=== PATIENT | female | born 1975 | race Caucasian/White ===

== ENCOUNTER 2020-08-31 07:36 | Outpatient (CLI) | payer OTHER, SELFPAY ==
--- NOTE | ~2020-08-31 | XR_ITS ---
EXAMINATION: XR foot LT min 3V, XR foot RT min 3V DATE: 08/31/2020 08:04 INDICATION: Bilateral foot pain TECHNIQUE: 1. Dorsoplantar, two oblique and lateral views of the left foot were obtained. 2. Dorsoplantar, two oblique and lateral views of the right foot were obtained. COMPARISON: None. FINDINGS: Alignment is normal. No fracture. Mild to moderate osteoarthritis at the left first metatarsophalange al joint and mild at the right first metatarsophalangeal joint as well as multiple additional joints in the bilateral mid and forefeet. Small bilateral plantar calcaneal spurs. Soft tissues are unremark able with no ankle joint effusions. IMPRESSION: 1. Polyarticular osteoarthritis in the bilateral mid and forefeet, mild to moderate at the left first metatarsophalangeal joint and otherwise mild. No 2. Bilateral plantar calcaneal spurs. Reviewed, dictated and finalized at location B. IMPRESSION: 1. Polyarticular osteoarthritis in the bilateral mid and forefeet, mild to mode rate at the left first metatarsophalangeal joint and otherwise mild. No 2. Bilateral plantar calcaneal spurs.
== END 2020-08-31 07:37 | disposition home or self-care (01) ==
LOC: CHSLAB 07:42 → CHSIMG 07:44
PROVIDERS: PCP Internal Medicine; Visit Provider Podiatrist
DX: M79.672 Pain in left foot (principal); M79.671 Pain in right foot
CPT/HCPCS: 73630

== ENCOUNTER 2021-09-16 10:46 | Outpatient (CLI) | payer BC, SELFPAY ==
--- NOTE | ~2021-09-16 | MM_ITS ---
EXAMINATION: MM screening joaquina BI w geovany HISTORY: Screening mammogram TECHNIQUE: Craniocaudal and mediolateral oblique 3-D tomosynthesis images were obtained and synthetic 2-D images were generated. CAD analysis was submitted and interpreted. COMPARISON: 03/24/2018 bilateral screening mammogram BREAST PARENCHYMAL COMPOSITION: There are scattered areas of fibroglandular density. FINDINGS: Stable mild asymmetry. There is no evidence of suspicious mass, calcification, or test architect ural distortion to suggest malignancy in either breast. There has been no suspicious interval change. IMPRESSION: 1. No mammographic evidence of malignancy. 2. Recommend routine screening mammography in one year. BI-RADS Category 1: Negative Reviewed, dictated and finalized at location A. [employer] MA[employer]GER
== END 2021-09-16 10:47 | disposition home or self-care (01) ==
LOC: CHSIMG 10:51
PROVIDERS: PCP Internal Medicine; Visit Provider Internal Medicine
DX: Z12.31 Encounter for screening mammogram for malignant neoplasm of breast (principal)
CPT/HCPCS: 77063; 77067

== ENCOUNTER 2022-01-30 09:48 | Outpatient (CLI) | payer BC, SELFPAY ==
--- NOTE | ~2022-01-30 | XR_ITS ---
EXAMINATION: XR tibia fibula RT 2V DATE: 01/30/2022 10:23 INDICATION: Right lower leg wound. TECHNIQUE: 2 views of right tibia and fibula were obtained. COMPARISON: None. FINDINGS: Bone alignment is normal. No fracture. Right knee demonstrates moderate osteoarthritis of m edial compartment and mild osteoarthritis of patellofemoral compartment. There is no radiopaque forei gn body. IMPRESSION: 1. Moderate right knee osteoarthritis. Reviewed, dictated and finalized at location A.
[2022-01-30 10:08] LABS: Basophils Absolute Auto 0.07 K/mm3 (0.00-0.10); Basophils Percent Auto 0.9 % (0.0-1.0); Eosinophils Absolute Auto 0.17 K/mm3 (0.02-0.50); Eosinophils Percent Auto 2.1 % (1.0-6.0); Hematocrit 49.9 % (35.0-49.0); Hemoglobin 16.2 g/dL (12.0-15.0); Immature Granulocyte Absolute 0.03 K/mm3 (0.00-0.00); Immature Granulocyte Percent A 0.4 % (0.0-0.0); Lymphocytes Absolute Auto 1.94 K/mm3 (1.10-4.50); Lymphocytes Percent Auto 24.2 % (18.0-42.0); Mean Corpuscular HGB Conc 32.5 g/dL (32.0-36.0); Mean Corpuscular Hemoglobin 29.5 pg (27.0-31.0); Mean Corpuscular Volume 90.9 fL (78.0-102.0); Mean Platelet Volume 9.8 fl (9.2-11.8); Monocytes Absolute Auto 0.38 K/mm3 (0.10-0.90); Monocytes Percent Auto 4.7 % (2.0-11.0); Neutrophils Absolute Auto 5.4 K/mm3 (1.7-7.2); Neutrophils Percent Auto 67.7 % (50.0-70.0); Platelet Count Result 318 K/mm3 (150-420); Red Blood Count 5.49 M/mm3 (4.20-5.40); Red Cell Distribution Width 13.7 % (11.6-14.4)
[2022-01-30 10:45] LABS: Alanine Aminotransferase 39 U/L (14-59); Alkaline Phosphatase 115 U/L (46-116); Anion Gap 8 mmol/L (8-16); Aspartate Amino Transferase 21 U/L (15-37); Bilirubin,Total 0.2 mg/dL (0.00-1.00); Blood Urea Nitrogen 14 mg/dL (7-18); Calcium 9.4 mg/dL (8.5-10.1); Carbon Dioxide 28 mmol/L (21-32); Chloride 102 mmol/L (98-108); Estimated Glomerular Filt Rate > 60; Glucose 88 mg/dL (70-99); Osmolality Calculated 285 mOsm/kg (285-295); Potassium 4.8 mmol/L (3.5-5.1); Sodium 138 mmol/L (136-145); Total Protein 7.3 g/dL (6.4-8.2)
== END 2022-01-30 09:49 | disposition home or self-care (01) ==
LOC: CHSIMG 09:51
PROVIDERS: PCP Internal Medicine; Visit Provider Internal Medicine
DX: S81.801A Unspecified open wound, right lower leg, initial encounter (principal)
CPT/HCPCS: 36415; 73590; 80053; 85025

== ENCOUNTER 2022-06-10 04:47 | Emergency (ER) | payer BC, SELFPAY ==
[2022-06-10 05:00] VITALS: BP 155/80; PULSE 65; RESP 17; TEMP 36.5; O2SAT 97
--- NOTE | 2022-06-10 05:01 | ED.GENADULT ---
HPI - General Adult General Chief complaint: Extremity Injury, Upper Stated complaint: right wrist pain History of Present Illness HPI narrative: The patient is a 47-year-old woman with a history of fibromyalgia, degenerative joint disease and degenerative disc disease with osteoarthritis. She is already on Mobic 15 mg daily and gabapentin 300 mg by her primary care provider. She has no recent history of trauma in the last few days. She presents with sudden onset of right wrist pain on the dorsal aspect of the right wrist since 4:30 p.m. yesterday, 06/09/2022 which is spontaneous and idiopathic. She is able to move the wrist but has limited range of motion secondary to pain. Subsequently, the patient developed pain in the upper aspect of her right arm but not in the shoulder joint. No paresthesias. No swelling of the wrist or arm; her right arm wedding ring still is as tight as usual. No tingling sensations or numbness in the upper extremity. No pain elsewhere. No dyspnea. No other complaints. 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 Related Data Home Medications Medication Instructions Recorded Confirmed escitalopram oxalate 10 mg tablet 10 mg PO DAILY 06/10/22 06/10/22 gabapentin 300 mg capsule 300 mg PO DAILY 06/10/22 06/10/22 meloxicam 15 mg tablet 15 mg PO DAILY 06/10/22 06/10/22 Allergies Allergy/AdvReac Type Severity Reaction Status Date / Time Penicillins Allergy Intermediate Nausea and Verified 06/10/22 04:59 Vomiting azithromycin Allergy Nausea and Verified 06/10/22 04:59 Vomiting Review of Systems Review of Systems: All systems reviewed & are unremarkable except as noted in HPI and below Constitutional: Constitutional: Reports no additional constitutional complaints, Denies anorexia, Denies body ache(s), Denies chills, Denies excessive sweating, Denies fatigue, Denies fever(s), Denies frequent falls, Denies headache(s), Denies malaise and Denies poor appetite Eyes: Eyes: Reports no additional eye complaints, Denies blurry vision, Denies change in vision, Denies irritation, Denies itchy eyes and Denies photophobia ENT: Reports system reviewed and no additional complaints, except as documented, Reports Normal hearing present, Denies change in voice, Denies dysphagia, Denies vertigo, Denies dizziness, Denies ear discharge, Denies headache(s), Denies hearing loss, Denies hoarseness, Denies nasal congestion, Denies neck pain, Denies sinus pressure, Denies sore throat and Denies throat swelling Cardiovascular: Cardiovascular: Reports no additional cardiovascular complaints, Denies chest pain, Denies syncope, Denies rapid heart rate, Denies irregular heart rhythm, Denies leg edema, Denies dyspnea and Denies slow heart rate Respiratory: Respiratory: Reports no additional respiratory complaints, Denies cough, Denies dyspnea, Denies stridor and Denies wheezing Gastrointestinal: Gastrointestinal: Reports no additional gastrointestinal complaints, Denies abdominal pain, Denies melena, Denies hematochezia, Denies dysphagia, Denies diarrhea, Denies nausea and Denies vomiting Genitourinary: Genitourinary: Denies hematuria, Denies urinary frequency, Denies dysuria, Denies flank pain and Denies urinary urgency Musculoskeletal: Musculoskeletal: Reports no additional musculoskeletal complaints, Denies abnormal gait, Denies back pain, Denies myalgias, Reports arthralgias (right wrist), Denies joint swelling, Reports limited range of motion (right wrist), Denies muscle cramps, Denies muscle weakness, Denies neck pain and Denies numbness Integumentary/Breasts: Skin/Breast: Reports system reviewed and no additional complaints, except as docu, Denies breast pain, Denies change in pigmentation, Denies pruritus, Denies erythema and Denies wounds Neurologic: Reports system reviewed and no additional complaints, except as documented, Reports Normal hearing present, Denies Abnormal speech present, D
[2022-06-10] MEDS: HYDROcodone/acetaminophen (*CRX) 5-325 MG TABLET 1 TAB PO (05:18)
[2022-06-10] MEDS: CYCLOBENZAPRINE HCL 10 MG TABLET PO (05:19)
[2022-06-10 06:06] VITALS: BP 144/76; PULSE 60; RESP 17; TEMP 36.3; O2SAT 96
== END 2022-06-10 06:08 | disposition home or self-care (01) ==
PROVIDERS: Emergency Provider Emergency Medicine; PCP Internal Medicine
DX: M25.531 Pain in right wrist (principal); M79.621 Pain in right upper arm
CPT/HCPCS: 99283; A9270

== ENCOUNTER 2022-08-21 13:07 | Emergency (ER) | payer BC, MEDICAID, SELFPAY ==
--- NOTE | ~2022-08-21 | XR_ITS ---
EXAMINATION: XR shoulder LT min 2V DATE: 08/21/2022 14:22 INDICATION: Left shoulder pain. TECHNIQUE: 4 views of left shoulder were obtained. COMPARISON: None. FINDINGS: Bone alignment is normal. No fracture. There is mild osteoarthritis of glenohumeral joint a nd acromioclavicular joint characterized by tiny osteophytes. IMPRESSION: 1. Mild polyarticular osteoarthritis. Reviewed, dictated and finalized at location B.
[2022-08-21 13:20] VITALS: BP 135/85; PULSE 80; RESP 16; TEMP 36.6; O2SAT 98
--- NOTE | 2022-08-21 14:05 | ED.EXTPRO ---
HPI - Extremity Problem General Chief complaint: Extremity Problem,Nontraumatic Stated complaint: SHOULDER PAIN Time Seen by Provider: 08/21/22 13:11 Source: patient and RN notes reviewed Mode of arrival: ambulatory Limitations: no limitations History of Present Illness Complaint: extremity pain (left shoulder pain) Onset (ago): day(s) (6) Pain Consistency: constant Location: left and upper extremity Severity scale (1-10): 4 Quality: aching and dull Radiation: none Relieving factors: immobilization Exacerbating factors: range of motion Associated symptoms: denies other symptoms Related Data Home Medications Medication Instructions Recorded Confirmed escitalopram oxalate 10 mg tablet 10 mg PO DAILY 06/10/22 08/21/22 gabapentin 300 mg capsule 300 mg PO DAILY 06/10/22 08/21/22 meloxicam 15 mg tablet 15 mg PO DAILY 06/10/22 08/21/22 Allergies Allergy/AdvReac Type Severity Reaction Status Date / Time Penicillins Allergy Intermediate Nausea and Verified 08/21/22 13:43 Vomiting azithromycin Allergy Nausea and Verified 08/21/22 13:43 Vomiting Review of Systems Review of Systems: All systems reviewed & are unremarkable except as noted in HPI and below Constitutional: Constitutional: Reports no additional constitutional complaints Eyes: Eyes: Reports no additional eye complaints ENT: Reports system reviewed and no additional complaints, except as documented Cardiovascular: Cardiovascular: Reports no additional cardiovascular complaints Respiratory: Respiratory: Reports no additional respiratory complaints Gastrointestinal: Gastrointestinal: Reports no additional gastrointestinal complaints Genitourinary: Genitourinary: Reports no additional female genitourinary complaints Musculoskeletal: Musculoskeletal: Reports no additional musculoskeletal complaints and Reports arthralgias Integumentary/Breasts: Skin/Breast: Reports system reviewed and no additional complaints, except as docu Neurologic: Reports system reviewed and no additional complaints, except as documented Psychiatric: Psychiatric: Reports no additional psychiatric complaints Endocrine: Endocrine: Reports no additional endocrine complaints Hematologic/Lymphatic: Hematologic/Lymphatic: Reports no additional hematologic/lymphatic complaints Allergic/Immunologic: Allergic/Immunologic: Reports no additional allergic/immunologic complaints [facility] Past Medical History Medical History Left shoulder pain Social History Social History Smoking status: Current every day smoker Exam Const: General: healthy appearing, no acute distress and well nourished Nutritional Appearance: well nourished Orientation/consciousness: patient oriented x3 Limitations: no limitations HENMT: Head: normal to inspection Ears: external ears normal, TM's normal bilaterally and EAC's normal Face/Nose/Sinus: Normal external nose present, Normal nares present, normal facial exam and sinuses nontender Face and sinus: normal facial exam and sinuses nontender Mouth: Yes Normal oral and palatal mucosa present and Yes moist mucous membranes Teeth and gingiva: dentition normal Throat: posterior oropharynx normal Eyes: Conjunctivae: conjunctivae normal Pupils: Equal, round and reactive pupils present EOM: EOMs intact bilaterally Neck: Neck: normal visual inspection, no lymphadenopathy and no meningeal signs Chest: Chest palpation & inspection: normal inspection of the chest Resp: Effort & Inspection: normal respiratory effort Auscultation: clear to auscultation bilaterally Cardio: Rate: regular rate Rhythm: regular rhythm GI: GI Palp: Yes Soft to palpation and No Tenderness to palpation present (GI) Auscultation: normal bowel sounds : General: Yes bladder normal to palpation and Yes no CVA tenderness Bimanual exam- vagina & uterus: bladder norm
[2022-08-21] MEDS: IBUPROFEN 400 MG TABLET 800 MG PO (14:24)
[2022-08-21 15:29] VITALS: BP 130/75; PULSE 79; RESP 16; O2SAT 98
== END 2022-08-21 15:31 | disposition home or self-care (01) ==
PROVIDERS: Emergency Provider Emergency Medicine; PCP Internal Medicine
DX: M19.012 Primary osteoarthritis, left shoulder (principal)
CPT/HCPCS: 73030; 99283; A4565; A9270

== ENCOUNTER 2022-09-11 13:58 | Outpatient (RCR) | payer BC, MEDICAID, SELFPAY ==
--- NOTE | 2022-09-11 14:56 | PTOPEVAL1 ---
Assessment and note entered by Uli Moura Evaluation Information Assessment Status Evaluation Diagnosis left shoulder pain Onset 06/11/22 Subjective Information Pt. reports that she developed left shoulder pain several months ago. She reports that she had recent cortisone injection that helped reduce her pain. 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 She states that pain does wake her at night. She describes pain in the area of the lateral brachial region of the left shoulder. She states that her goal is to reduce her shoulder pain. Reported Pain Level Pain Score 2: Self Report Assessment PT Clinical Summary Pt. is a 47 year old female who enters the clinic with left shoulder pain. Pt. presentation is consistent with left impingement syndrome. Continued treatment is indicated in order to improve left shoulder strength, ROM, and to reduce pain to improve IADL performance. Plan of Care Interventions Electrical Stimulation,Hot Pack/Cold Pack,Manual Therapy,Patient/Caregiver Educati,Therapeutic Activities,Therapeutic Exercise,Self-Care/Home Management PT Services Indicated Yes Treatment Frequency and 3x/week x 12 visits Duration These treatments will address the objective and functional deficits as defined above. The patient will be advanced safely and appropriately in order for the patient to progress towards his/her prior level of function. Additional exercises will be introduced and as well as a comprehensive home exercise program upon discharge, if needed, ?to ensure carryover of functional gains achieved in the clinic. This treatment plan has been reviewed and agreement upon by the patient.
== END 2022-10-06 19:00 | disposition home or self-care (01) ==
LOC: CHSPT 13:58
PROVIDERS: PCP Internal Medicine; Visit Provider Internal Medicine
DX: M25.512 Pain in left shoulder (principal)
CPT/HCPCS: 97014; 97110; 97161; 97530; G0283

== ENCOUNTER 2022-10-20 08:40 | Emergency (ER) | payer BC, MEDICAID, SELFPAY ==
--- NOTE | ~2022-10-20 | US_ITS ---
Duplex Sonography of the left extremity: Indication: Left leg pain Sagittal and transverse B-mode images as well as color-flow imaging were performed on the left femora l and popliteal veins. B-mode examination was done without and with compression in the transverse pl ane. There is good visualization of the common femoral, proximal profunda femoral, superficial femor al, greater saphenous, and popliteal veins. Normal flow was seen on color-flow imaging. Normal compr essibility was demonstrated. Somewhat suboptimal visualization of the calf veins, but no calf vein th rombus is identified. The contralateral common femoral vein was evaluated for comparison, and demonstrated normal flow and compressibility. Impression: No left lower extremity DVT identified. Reviewed, dictated and finalized at location [] S REPRESENT[employer]IVE [employer] Impression: No left lower extremity DVT identified.
[2022-10-20 08:48] VITALS: BP 189/92; PULSE 69; RESP 16; TEMP 36.4
[2022-10-20 09:43] LABS: D Dimer 0.84 mg/L (0.19-0.50)
--- NOTE | 2022-10-20 10:10 | ED.EXTPRO ---
HPI - Extremity Problem General Chief complaint: Extremity Problem,Nontraumatic Stated complaint: L leg pain Time Seen by Provider: 10/20/22 08:48 Source: patient Mode of arrival: ambulatory Limitations: no limitations History of Present Illness HPI Narrative: patient is a 47-year-old white female complains left lower extremity pain for the past 3-4 months off and on pretty much every day she describes achy pain. She has a history of osteoarthritis of the knees. She denies any injury. She says her pain is a 6/10 in severity. She says it is worse with rest after work. She is taking ibuprofen and meloxicam and tramadol for pain. She is worried she might have a blood clot. She denies any shortness of breath cough chest pain or any other pains. Denies any other complaints. Related Data Home Medications Medication Instructions Recorded Confirmed escitalopram oxalate 10 mg tablet 10 mg PO DAILY 06/10/22 10/20/22 gabapentin 300 mg capsule 300 mg PO DAILY 06/10/22 10/20/22 meloxicam 15 mg tablet 15 mg PO DAILY 06/10/22 10/20/22 Allergies Allergy/AdvReac Type Severity Reaction Status Date / Time Penicillins Allergy Intermediate Nausea and Verified 10/20/22 08:52 Vomiting azithromycin Allergy Nausea and Verified 10/20/22 08:52 Vomiting Review of Systems Review of Systems: All systems reviewed & are unremarkable except as noted in HPI and below Constitutional: Constitutional: Reports no additional constitutional complaints Eyes: Eyes: Reports no additional eye complaints ENT: Reports system reviewed and no additional complaints, except as documented Cardiovascular: Cardiovascular: Reports no additional cardiovascular complaints and Denies chest pain Respiratory: Respiratory: Reports no additional respiratory complaints, Denies chest congestion, Denies cough, Denies dyspnea and Denies wheezing Gastrointestinal: Gastrointestinal: Reports no additional gastrointestinal complaints Genitourinary: Genitourinary: Reports no additional female genitourinary complaints Musculoskeletal: Musculoskeletal: Reports as per HPI Integumentary/Breasts: Skin/Breast: Reports system reviewed and no additional complaints, except as docu Neurologic: Reports system reviewed and no additional complaints, except as documented [facility] Past Medical History Medical History Left shoulder pain Social History Social History Smoking status: Current every day smoker Exam Narrative: patient is a white female she appears in no apparent distress. Eyes conjunctiva pink sclera nonicteric. Neck is supple nontender. Lungs are clear. Heart is regular rate rhythm without murmurs gallops or rubs. Back is nontender. No CVA tenderness abdomen soft nontender left lower extremity: Full range of motion in all joints. No palpable tenderness. Negative Homans sign. DP and PT pulses are +2. Left knee stable to all forces. Negative anterior and posterior drawer test. Stable to varus and valgus stresses. Course Course Emergency Course: Venous Doppler ultrasound left lower extremity was normal no DVT. Vital Signs Vital signs: Vital Signs Temperature 36.4 C L 10/20/22 08:48 Pulse Rate 69 10/20/22 08:48 Respiratory Rate 16 10/20/22 08:48 Blood Pressure 189/92 H 10/20/22 08:48 Temperature 36.6 C 10/20/22 11:30 Pulse Rate 62 10/20/22 11:30 Respiratory Rate 16 10/20/22 11:30 Blood Pressure 142/83 H 10/20/22 11:30 Pulse Oximetry 97 10/20/22 11:30 Oxygen Delivery Room Air 10/20/22 11:30 MDM - Extremity (Nontraumatic) Lab Data Labs: Lab Results 10/20/22 Range/Units 09:15 D-Dimer 0.84 H* (0.19-0.50) mg/L Discharge Plan Discharge Clinical Impression: Pain of left calf Patient Disposition: Home, Self-Care Condition: Stable Instructions: Leg Pain (ED)
[2022-10-20 11:30] VITALS: BP 142/83; PULSE 62; RESP 16; TEMP 36.6; O2SAT 97
== END 2022-10-20 11:35 | disposition home or self-care (01) ==
PROVIDERS: Emergency Provider Emergency Medicine; PCP Internal Medicine
DX: M79.662 Pain in left lower leg (principal); F17.200 Nicotine dependence, unspecified, uncomplicated
CPT/HCPCS: 36415; 85380; 93971; 99284

== ENCOUNTER 2022-11-08 13:22 | Outpatient (CLI) | payer BC, MEDICAID, SELFPAY ==
--- NOTE | ~2022-11-08 | XR_ITS ---
EXAM: XR knee LT 3V DATE: 11/08/2022 14:02 HISTORY: LEFT KNEE PAIN-POSTERIOR,NKI . COMPARISON: None available. FINDINGS: Normal mineralization. No fracture or dislocation. No lytic or blastic lesion. Mild medial joint space narrowing. Mild tricompartmental osteophytosis. No erosion or periosteal change. Soft ti ssue phlebolith. Trace joint fluid. IMPRESSION: Mild tricompartmental left knee osteoarthritis. Reviewed, dictated and finalized at location K. IN[employer] SH[employer] SPECIALIST
--- NOTE | ~2022-11-08 | XR_ITS ---
EXAM: XR hand LT min 3V DATE: 11/08/2022 14:02 HISTORY: LEFT INDEX FINGER DACTYLITIS,[place]BARRAN SIDE PEA SIZE KNOT ON 1S . COMPARISON: None available. FINDINGS: Normal mineralization. No fracture or dislocation. No lytic or blastic lesion. Moderate os teoarthritic change at the trapeziometacarpal joint, with very mild osteoarthritic changes in the int erphalangeal joints of the fingers and first MTP joint. No erosion or periosteal change. Soft tissues within normal limits. IMPRESSION: Polyarticular osteoarthritis. No soft tissue abnormality detected. Reviewed, dictated and finalized at location K. INE FEEDER
[2022-11-08 13:36] LABS: Basophils Absolute Auto 0.05 K/mm3 (0.00-0.10); Basophils Percent Auto 0.6 % (0.0-1.0); Eosinophils Absolute Auto 0.09 K/mm3 (0.02-0.50); Eosinophils Percent Auto 1.1 % (1.0-6.0); Hematocrit 45.9 % (35.0-49.0); Hemoglobin 15.5 g/dL (12.0-15.0); Immature Granulocyte Absolute 0.02 K/mm3 (0.00-0.00); Immature Granulocyte Percent A 0.2 % (0.0-0.0); Lymphocytes Absolute Auto 1.71 K/mm3 (1.10-4.50); Mean Corpuscular HGB Conc 33.8 g/dL (32.0-36.0); Mean Corpuscular Hemoglobin 30.2 pg (27.0-31.0); Mean Corpuscular Volume 89.3 fL (78.0-102.0); Mean Platelet Volume 9.4 fl (9.2-11.8); Monocytes Absolute Auto 0.45 K/mm3 (0.10-0.90); Monocytes Percent Auto 5.5 % (2.0-11.0); Neutrophils Absolute Auto 5.8 K/mm3 (1.7-7.2); Neutrophils Percent Auto 71.6 % (50.0-70.0); Platelet Count Result 329 K/mm3 (150-420); Red Blood Count 5.14 M/mm3 (4.20-5.40); Red Cell Distribution Width 14.7 % (11.6-14.4); White Blood Count 8.1 K/mm3 (4.8-10.8)
[2022-11-08 13:39] LABS: Add Urine Microscopic? YES; Appearance Urine Slightly Cloudy (Clear); Bilirubin Urine Negative (Negative); Blood Urine Negative (Negative); Color Urine Light Yellow (Yellow); Glucose Urine UA Negative (Negative); Ketones Urine Negative (Negative); Leukocyte Esterase Ur 1+ (Negative); Nitrate Urine Negative (Negative); Protein Urine Negative (Negative); Specific Grav Ur >= 1.030 (1.010-1.020); Urobilinogen Urine 0.2 mg/dL (0.2-1.0)
[2022-11-08 13:43] LABS: RBC Urine None seen /hpf (0-2)
[2022-11-08 13:44] LABS: Bacteria Urine 3+ /hpf; Squamous Epithelial Cell Urine Moderate /hpf (Few)
[2022-11-08 14:08] LABS: Alanine Aminotransferase 30 U/L (14-59); Albumin Level 3.7 g/dL (3.4-5.0); Alkaline Phosphatase 116 U/L (46-116); Anion Gap 4 mmol/L (8-16); Aspartate Amino Transferase 14 U/L (15-37); Bilirubin,Total 0.2 mg/dL (0.00-1.00); Blood Urea Nitrogen 12 mg/dL (7-18); CRP 1.2 mg/dL (0.0-0.9); Carbon Dioxide 30 mmol/L (21-32); Chloride 104 mmol/L (98-108); Estimated Glomerular Filt Rate > 60; Glucose 93 mg/dL (70-99); Osmolality Calculated 285 mOsm/kg (285-295); Potassium 4.3 mmol/L (3.5-5.1); Sodium 138 mmol/L (136-145); Thyroid Stimulating Hormone 0.96 uIU/mL (0.36-3.74); Total Protein 7.2 g/dL (6.4-8.2)
[2022-11-12 12:29] LABS: Cyclic Citrullinated Peptide 79 Units (<20)
== END 2022-11-08 13:23 | disposition home or self-care (01) ==
LOC: CHSLAB 13:24
PROVIDERS: PCP Internal Medicine; Visit Provider Internal Medicine
DX: M25.562 Pain in left knee (principal); M19.042 Primary osteoarthritis, left hand; M17.12 Unilateral primary osteoarthritis, left knee
CPT/HCPCS: 36415; 73130; 73562; 80053; 81001; 84443; 84550; 85025; 86038; 86140

== ENCOUNTER 2022-11-20 16:13 | Outpatient (RCR) | payer BC, MEDICAID, SELFPAY ==
--- NOTE | 2022-11-20 17:20 | OTOPEVAL1 ---
Assessment and note entered by Rosie Huynh OT Evaluation Information Assessment Status Evaluation Diagnosis L index finger tenosynovitis Onset 11/06/22 Subjective Information The patient reports she wears a compression glove for work that helps with the pain. 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 The patient reports no numbness or tingling. Reported Pain Level Pain Score 6: Self Report Assessment OT Clinical Summary The patient is a 47 year old female who was referred to outpatient OT due to index finger tenosynovitis. The patient previously did not experience any pain and demonstrated WNL pinch strength and digit AROM of index finger of L hand. The patient now demonstrates 50-75% AROM of index finger of L hand, 10/10 pain at it's worse and diminished pinch strength affecting the patient's ability to perform self care tasks and work tasks with decreased discomfort. The patient requires skilled OT to address current deficits and return to PLOF. Plan of Care Interventions Therapeutic Exercise,Manual Therapy,Neuro Re- education,Therapeutic Activities,Hot Pack/Cold Pack,Electrical Stimulation,Ultrasound OT Services Indicated Yes Treatment Frequency and 2x/week for 10 visits. Duration These treatments will address the objective and functional deficits as defined above. The patient will be advanced safely and appropriately in order for the patient to progress towards his/her prior level of function. Additional exercises will be introduced and as well as a comprehensive home exercise program upon discharge, if needed, ?to ensure carryover of functional gains achieved in the clinic. This treatment plan has been reviewed and agreement upon by the patient.
--- NOTE | 2022-11-22 16:57 | PTOPEVAL1 ---
Assessment and note entered by Uli Moura Evaluation Information Assessment Status Evaluation Diagnosis left knee pain Onset 08/22/22 Subjective Information Pt. reports that she has had left knee pain for several months. She reports no specific incident, just a sudden onset of pain. She reports that initially the pain was worsening, but has improved recently. She did receive a cortisone shot last week and currently she reports pain at 0/10. She reports pain levels were 10/10 before the shot. She has no pain with walking or standing activities. She reports that stairs were difficult before the shot but have been easier since the injection. She reports that she does have concern regarding weakness. She reports she would like to continue treatment to improve mm. strength. Reported Pain Level Pain Score 2,5: Self Report Assessment PT Clinical Summary Pt. is a 47 year old female who enters the clinic with left knee pain. She presents with pain with palpation, impaired flexibility, impaired gait and proximal l.e. weakness. Continued treatment is indicated in order to improve these areas to improve pt. IADL performance. Plan of Care Interventions Electrical Stimulation,Hot Pack/Cold Pack,Manual Therapy,Therapeutic Activities,Therapeutic Exercise PT Services Indicated Yes Treatment Frequency and 2x/week x 8 visits Duration These treatments will address the objective and functional deficits as defined above. The patient will be advanced safely and appropriately in order for the patient to progress towards his/her prior level of function. Additional exercises will be introduced and as well as a comprehensive home exercise program upon discharge, if needed, ?to ensure carryover of functional gains achieved in the clinic. This treatment plan has been reviewed and agreement upon by the patient.
--- NOTE | 2022-12-20 17:23 | PTOPDC ---
Assessment and note entered by JT File, PT Evaluation Information Assessment Status Discharge Diagnosis left knee pain Onset 08/22/22 Subjective Information patient reports she feels great this date. she reports no pain in the L knee. she reports she is back to all prior level activities without limitations or hesitations. Reported Pain Level Pain Score 0: Self Report Assessment PT Clinical Summary mrs. ware presents to skilled PT for her 8th skilled therapy visit. as of this date, she presents with full L knee mobility, 5/5 bilateral LE strength, and normal gait mechanics and stair ambulation. she has met all goals for skilled PT, and is ready to DC to an independent HEP. Plan of Care Treatment Frequency and DC to independent HEP Duration
--- NOTE | 2022-12-25 16:49 | OTOPDC ---
Assessment and note entered by Rosie Huynh, OT Evaluation Information Assessment Status Discharge Diagnosis RA Subjective Information The patient reports that last night and today have been very bad days. She reports 10/10 pain in L index finger where at last treatment she reported 2/10 pain in L index finger. The patient reports she has some days of intense pain and other days that are good days where the pain is not as bad. The patient stated she has been completing her exercises at home when her pain does not hurt as bad. On the date of discharge, the patient reports that both of her wrist and index fingers are hurting and she has had a hard time working today. Reported Pain Level Pain Score 0,10: Self Report Assessment OT Clinical Summary The patient demonstrates significant progress in digit AROM of L index finger leading to improvement in grasping items and decreasing risk of dropping things during daily tasks. The patient continues to demonstrate minimal to severe pain in B wrists and index fingers with pain at last visit being reported as 2/10 pain and this treatment date was reported at 10/10 pain. 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 The patient was educated on the prognosis of rheumatoid arthritis and the need for continued exercise and stretching to be performed at home. The patient is discharged this date due to plateau and fluctuation in symptoms and function at this time which affect her ability to meet her pain goal completely. The patient will see an RA specialist on 01/18/2023 to address continued pain. The patient has been educated on UE HEP to maintain function and decrease pain for conservative treatment at home. The patient is agreeable with discharge and demonstrates good understanding of exercises. Plan of Care OT Services Indicated No
== END 2022-12-25 16:59 | disposition home or self-care (01) ==
LOC: CHSOT 16:13
PROVIDERS: PCP Internal Medicine; Visit Provider Internal Medicine
DX: M25.561 Pain in right knee (principal); M79.645 Pain in left finger(s)
CPT/HCPCS: 97035; 97110; 97140; 97161; 97165; 97530

== ENCOUNTER 2022-12-28 10:24 | Outpatient (CLI) | payer BC, MEDICAID, SELFPAY ==
--- NOTE | ~2022-12-28 | XR_ITS ---
CORRECTED REPORT order change JMG 12/29/22 This report was recreated on 12/29/22. Original report was signed by Dennys Patel M.D. 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 Clinical History: Pain Findings: No acute fracture or dislocation is seen. Osseous alignment is anatomic. Joint spaces are preserved. Soft tissues are unremarkable. Impression: Unremarkable right hand. Reviewed, dictated and finalized at location M. ENGINEER MTDD Impression: Unremarkable right hand.
--- NOTE | ~2022-12-28 | XR_ITS ---
Right wrist Technique: PA, oblique, lateral, and ulnar deviation views were obtained. Clinical History: Pain Findings: No acute fracture or dislocation is seen. Osseous alignment is anatomic. Joint spaces are p reserved. Soft tissues are unremarkable. Impression: Unremarkable right wrist radiographs. Reviewed, dictated and finalized at location . 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
== END 2022-12-28 10:25 | disposition home or self-care (01) ==
LOC: CHSIMG 10:26
PROVIDERS: PCP Internal Medicine; Visit Provider Internal Medicine
DX: M25.541 Pain in joints of right hand (principal)
CPT/HCPCS: 73110; 73130

== ENCOUNTER 2023-01-12 10:35 | Outpatient (CLI) | payer BC, MEDICAID, SELFPAY ==
[2023-01-12 10:56] LABS: Basophils Absolute Auto 0.05 K/mm3 (0.00-0.10); Basophils Percent Auto 0.7 % (0.0-1.0); Eosinophils Absolute Auto 0.11 K/mm3 (0.02-0.50); Eosinophils Percent Auto 1.5 % (1.0-6.0); Hematocrit 44.5 % (35.0-49.0); Hemoglobin 14.8 g/dL (12.0-15.0); Immature Granulocyte Absolute 0.02 K/mm3 (0.00-0.00); Immature Granulocyte Percent A 0.3 % (0.0-0.0); Lymphocytes Absolute Auto 1.82 K/mm3 (1.10-4.50); Lymphocytes Percent Auto 25.2 % (18.0-42.0); Mean Corpuscular HGB Conc 33.3 g/dL (32.0-36.0); Mean Corpuscular Hemoglobin 30.6 pg (27.0-31.0); Mean Corpuscular Volume 91.9 fL (78.0-102.0); Mean Platelet Volume 9.3 fl (9.2-11.8); Monocytes Absolute Auto 0.45 K/mm3 (0.10-0.90); Monocytes Percent Auto 6.2 % (2.0-11.0); Neutrophils Absolute Auto 4.8 K/mm3 (1.7-7.2); Neutrophils Percent Auto 66.1 % (50.0-70.0); Platelet Count Result 264 K/mm3 (150-420); Red Blood Count 4.84 M/mm3 (4.20-5.40); White Blood Count 7.2 K/mm3 (4.8-10.8)
[2023-01-12 11:15] LABS: Alanine Aminotransferase 41 U/L (14-59); Albumin Level 3.5 g/dL (3.4-5.0); Alkaline Phosphatase 92 U/L (46-116); Anion Gap 6 mmol/L (8-16); Aspartate Amino Transferase 22 U/L (15-37); Bilirubin,Total 0.3 mg/dL (0.00-1.00); Blood Urea Nitrogen 13 mg/dL (7-18); CRP 0.7 mg/dL (0.0-0.9); Calcium 8.8 mg/dL (8.5-10.1); Carbon Dioxide 30 mmol/L (21-32); Chloride 107 mmol/L (98-108); Estimated Glomerular Filt Rate > 60; Glucose 81 mg/dL (70-99); Osmolality Calculated 295 mOsm/kg (285-295); Potassium 4.2 mmol/L (3.5-5.1); Sodium 143 mmol/L (136-145); Total Protein 6.6 g/dL (6.4-8.2)
[2023-01-16 12:02] LABS: Anti Cyclic Citrullinated Pept 73 Units (<20)
== END 2023-01-12 10:36 | disposition home or self-care (01) ==
LOC: CHSLAB 10:38
PROVIDERS: PCP Internal Medicine; Visit Provider Internal Medicine
DX: M06.9 Rheumatoid arthritis, unspecified (principal); M13.0 Polyarthritis, unspecified
CPT/HCPCS: 36415; 80053; 85025; 86140; 86200; 86747

== ENCOUNTER 2023-01-30 19:08 | Emergency (ER) | payer BC, MEDICAID, SELFPAY ==
--- NOTE | ~2023-01-30 | XR_ITS ---
EXAMINATION: XR hand RT min 3V INDICATION: Right hand pain TECHNIQUE: Three views of the right hand are obtained. COMPARISON: 12/28/2022 FINDINGS: No fracture, dislocation, or subluxation. The bones, soft tissues, and joint spaces are nor mal. IMPRESSION: 1. No acute osseous abnormality. Reviewed, dictated and finalized at location F.
--- NOTE | 2023-01-30 19:11 | ED.GENADULT ---
HPI - General Adult General Chief complaint: Unspecified Stated complaint: sick Time Seen by Provider: 01/30/23 19:11 History of Present Illness HPI narrative: Faiza is a 47F with a PMH of tobacco use, fibromyalgia, mood disorder, and a recent diagnosis of RA that presented to the ED with right hand pain. It has been ongoing for months but was getting much worse today. No fall, injury or trauma reported. Related Data Home Medications Medication Instructions Recorded Confirmed escitalopram oxalate 10 mg tablet 10 mg PO DAILY 06/10/22 01/30/23 gabapentin 300 mg capsule 300 mg PO DAILY 06/10/22 01/30/23 meloxicam 15 mg tablet 15 mg PO DAILY 06/10/22 01/30/23 Allergies Allergy/AdvReac Type Severity Reaction Status Date / Time Penicillins Allergy Intermediate Nausea and Verified 01/18/23 09:59 Vomiting azithromycin Allergy Nausea and Verified 01/18/23 09:59 Vomiting Review of Systems Review of Systems: All systems reviewed & are unremarkable except as noted in HPI and below PMFSH Past Medical History Medical History Current smoker Left shoulder pain Rheumatoid arthritis with rheumatoid factor of multiple sites without organ or systems involvement Surgical History Surgical History No pertinent past surgical history Family History Family History Other Depression Diabetes mellitus Heart disease Hypertension Social History Social History Smoking status: Current every day smoker Tobacco type: cigarettes Alcohol intake: never Substance use: never Substance use type: does not use Lack of Transportation: No Lack of Food: Never True Current Housing: I Have Housing Concerned About Future Housing: No Difficulty Paying Gas/Electric Bills: No Difficulty Paying for Meds: No Currently Unemployed: No Education: Decline to Answer Difficulty w/ Childcare or Family Care: No Living arrangements: with family Exam Const: General: healthy appearing and no acute distress Nutritional Appearance: well nourished Orientation/consciousness: patient oriented x3 Other: Faiza was sitting on the bed holding her right wrist HENMT: Head: normal to inspection Eyes: Conjunctivae: conjunctivae normal Pupils: Equal, round and reactive pupils present Neck: Neck: normal visual inspection Chest: Chest palpation & inspection: normal inspection of the chest Resp: Effort & Inspection: normal respiratory effort Cardio: Rate: regular rate Skin: General skin exam: normal color Rashes: no rashes Neuro: General: patient oriented x3 and moves all extremities Extrem: Other: right wrist was swollen and TTP on the dorsal side and on the thenar eminence of the right hand Psych: Mental Status: mental status grossly normal Affect: normal affect Attitude: cooperative Course Course Emergency Course: Ordered radiographs. Given toradol and Cameron for pain. EXAMINATION: XR hand RT min 3V INDICATION: Right hand pain TECHNIQUE: Three views of the right hand are obtained. COMPARISON: 12/28/2022 FINDINGS: No fracture, dislocation, or subluxation. The bones, soft tissues, and joint spaces are normal. IMPRESSION: 1. No acute osseous abnormality. Vital Signs Vital signs: Vital Signs Temperature 98.8 F 01/30/23 19:14 Pulse Rate 90 01/30/23 19:14 Respiratory Rate 20 01/30/23 19:14 Blood Pressure 169/70 H 01/30/23 19:14 Pulse Oximetry 96 01/30/23 19:14 Oxygen Delivery Room Air 01/30/23 19:14 Temperature 98.8 F 01/30/23 19:14 Pulse Rate 90 01/30/23 19:14 Respiratory Rate 20 01/30/23 19:14 Blood Pressure 169/70 H 01/30/23 19:14 Pulse Oximetry 96 01/30/23 19:14 Oxygen Delivery Room Air 01/30/23 19:14 Medical Decision M
[2023-01-30 19:14] VITALS: BP 169/70; PULSE 90; RESP 20; TEMP 37.1; O2SAT 96
[2023-01-30] MEDS: HYDROcodone/acetaminophen (*CRX) 5-325 MG TABLET 1 TAB PO (19:38)
[2023-01-30] MEDS: KETOROLAC 30 MG/ML VIAL (*BKC) IM (19:38)
[2023-01-30 19:52] VITALS: BP 140/89; PULSE 90; RESP 20; TEMP 37.2; O2SAT 96
== END 2023-01-30 19:56 | disposition home or self-care (01) ==
PROVIDERS: Emergency Provider Family Medicine; PCP Internal Medicine
DX: M06.841 Other specified rheumatoid arthritis, right hand (principal); F17.210 Nicotine dependence, cigarettes, uncomplicated; Z79.1 Long term (current) use of non-steroidal anti-inflammatories (NSAID)
CPT/HCPCS: 73130; 96372; 99283; A9270; J1885

== ENCOUNTER 2023-02-09 14:23 | Outpatient (CLI) | payer BC, MEDICAID, SELFPAY ==
--- NOTE | ~2023-02-09 | MR_ITS ---
MRI of the left hand CLINICAL HISTORY: Pain TECHNIQUE: Axial T1-weighted, T1 fat-sat, and T2 fat-sat images, coronal T1-weighted and T2 fat-sat i mages, and sagittal T1-weighted and T2 fat-sat images were performed. Following intravenous administr ation of 15 cc MultiHance gadolinium, T1-weighted fat-sat imaging was performed in the axial, coronal , and sagittal planes. FINDINGS: No fracture or evidence for osteomyelitis. There is focal intramedullary cystic change in t he scaphoid distally and at the third metacarpal head. There is minimal joint effusion at the second metacarpophalangeal joint. No other joint effusion seen. Collateral ligaments appear intact. No other bone marrow signal abnormality seen. There is enhancing tenosynovitis involving the flexor tendon sheaths of the second and fourth digits. Tendons themselves appear intact. Extensor tendons appear intact. Visualized musculature unremarkabl e. There is focal enhancing soft tissue edema at the region of the distal portion of the fifth proxim al phalanx dorsally, nonspecific. IMPRESSION: Enhancing tenosynovitis of the flexor tendons of the second and fourth digits. Focal enhancing nonspecific soft tissue edema at the region of the distal portion of the fifth proxim al phalanx, dorsally. Correlate with physical exam. Reviewed, dictated and finalized at location . IMPRESSION: Enhancing tenosynovitis of the flexor tendons of the second and fourth digits. Focal enhancing nonspecific soft tissue edema at the region of the distal porti on of the fifth proximal phalanx, dorsally. Correlate with physical exam.
--- NOTE | ~2023-02-09 | MR_ITS ---
MRI of the right hand CLINICAL HISTORY: Pain TECHNIQUE: Axial T1-weighted, T2 fat-sat, T1 fat-sat images, coronal T1-weighted and T2 fat-sat image s, and sagittal T1-weighted and STIR images were performed. Following intravenous administration of 1 5 cc MultiHance gadolinium, T1-weighted fat-sat imaging was performed in the axial, coronal, and sagi ttal planes. FINDINGS: There is suggestion of scattered mild erosive changes in the carpal bones with extensive en hancing synovitis at the wrist. Bone marrow signals in the hand itself otherwise are unremarkable. Co llateral ligaments and the hand appear intact. No joint effusion identified. Flexor and extensor tendons are intact. Questionable minimal tenosynovitis of the flexor tendons of t he thumb. Visualized musculature unremarkable. No soft tissue mass or fluid collection evident in the hand. IMPRESSION: Findings suggestive of erosive/inflammatory arthropathy at the wrist, with scattered erosive changes enhancing synovitis. Consider rheumatoid arthritis. Questionable minimal tenosynovitis of the flexor tendons of the thumb. Reviewed, dictated and finalized at location M. IMPRESSION: Findings suggestive of erosive/inflammatory arthropathy at the wrist, with scat tered erosive changes enhancing synovitis. Consider rheumatoid arthritis. Questionable minimal tenosynovitis of the flexor tendons of the thumb.
== END 2023-02-09 14:24 | disposition home or self-care (01) ==
PROVIDERS: PCP Internal Medicine; Visit Provider Internal Medicine
DX: M05.79 Rheumatoid arthritis with rheumatoid factor of multiple sites without organ or systems involvement (principal); M65.9 Synovitis and tenosynovitis, unspecified
CPT/HCPCS: 73220; A9577

== ENCOUNTER 2023-04-18 17:51 | Outpatient (CLI) | payer BC, MEDICAID, SELFPAY ==
[2023-04-19 13:29] LABS: Alanine Aminotransferase 27 U/L (14-59); Albumin Level 3.9 g/dL (3.4-5.0); Alkaline Phosphatase 123 U/L (46-116); Anion Gap 11 mmol/L (8-16); Aspartate Amino Transferase 6 U/L (15-37); Bilirubin,Total 0.3 mg/dL (0.00-1.00); Blood Urea Nitrogen 19 mg/dL (7-18); CRP 0.7 mg/dL (0.0-0.9); Carbon Dioxide 27 mmol/L (21-32); Chloride 99 mmol/L (98-108); Estimated Glomerular Filt Rate > 60; Glucose 78 mg/dL (70-99); Osmolality Calculated 285 mOsm/kg (285-295); Potassium 4.5 mmol/L (3.5-5.1); Sodium 137 mmol/L (136-145); Total Protein 6.9 g/dL (6.4-8.2)
[2023-04-19 14:09] LABS: Basophils Absolute Auto 0.07 K/mm3 (0.00-0.10); Eosinophils Absolute Auto 0.06 K/mm3 (0.02-0.50); Eosinophils Percent Auto 0.9 % (1.0-6.0); Hematocrit 44.3 % (35.0-49.0); Hemoglobin 14.7 g/dL (12.0-15.0); Immature Granulocyte Absolute 0.02 K/mm3 (0.00-0.00); Immature Granulocyte Percent A 0.3 % (0.0-0.0); Lymphocytes Absolute Auto 1.57 K/mm3 (1.10-4.50); Lymphocytes Percent Auto 22.4 % (18.0-42.0); Mean Corpuscular HGB Conc 33.2 g/dL (32.0-36.0); Mean Corpuscular Hemoglobin 29.9 pg (27.0-31.0); Mean Corpuscular Volume 90.2 fL (78.0-102.0); Mean Platelet Volume 9.2 fl (9.2-11.8); Monocytes Absolute Auto 0.37 K/mm3 (0.10-0.90); Monocytes Percent Auto 5.3 % (2.0-11.0); Neutrophils Absolute Auto 4.9 K/mm3 (1.7-7.2); Neutrophils Percent Auto 70.1 % (50.0-70.0); Platelet Count Result 306 K/mm3 (150-420); Red Blood Count 4.91 M/mm3 (4.20-5.40); Red Cell Distribution Width 14.5 % (11.6-14.4)
== END 2023-04-18 17:52 | disposition home or self-care (01) ==
LOC: CHSLAB 17:55
PROVIDERS: PCP Internal Medicine; Visit Provider Internal Medicine
DX: M06.9 Rheumatoid arthritis, unspecified (principal)
CPT/HCPCS: 36415; 80053; 85025; 86140

== ENCOUNTER 2023-11-08 10:43 | Outpatient (CLI) | payer BC, MEDICAID, SELFPAY ==
--- NOTE | ~2023-11-08 | MR_ITS ---
MRI of the left knee Clinical history: Pain Technique: Coronal proton density and proton density-weighted images, sagittal proton-density and T2 fat-sat images, and axial proton-density fat-saturated images were acquired. Findings: Anterior and posterior cruciate ligaments are intact. Medial collateral ligament and the la teral collateral ligament complex are intact. Popliteus tendon is intact. There is complex/subtle radial tearing of the posterior horn of the medial meniscus near the posterio r root. No lateral meniscal tear identified. There is extensive high-grade chondromalacia of the medial compartment with areas of amorphous subcho ndral reactive marrow edema on both sides of the medial compartment. There is mild chondral thinning of the lateral compartment. There is mild to moderate chondral thinning of the patellofemoral compart ment. Extensor mechanism is intact. Small joint effusion present. No Reyes's cyst. Impression: Complex/radial tearing at the posterior horn of the medial meniscus near the posterior root. Advanced chondromalacia of the medial compartment, as detailed above. Mild to moderate degenerative change of the lateral patellofemoral compartment, as detailed above. Reviewed, dictated and finalized at location . 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 Advanced chondromalacia of the medial compartment, as detailed above. Mild to moderate degenerative change of the lateral patellofemoral compartment, as detailed above.
== END 2023-11-08 10:44 | disposition home or self-care (01) ==
LOC: CHSIMG 10:43
PROVIDERS: PCP Internal Medicine; Visit Provider Internal Medicine
DX: M25.562 Pain in left knee (principal); S83.232A Complex tear of medial meniscus, current injury, left knee, initial encounter; M94.262 Chondromalacia, left knee
CPT/HCPCS: 73721

== ENCOUNTER 2024-09-01 11:44 | Outpatient (CLI) | payer OTHER, SELFPAY ==
--- NOTE | ~2024-09-01 | XR_ITS ---
Clinical Indication: Hypertension PA and lateral views of the chest: Comparison: None Findings: The lungs are clear, without evidence of focal consolidation or pleural effusion. Cardiome diastinal silhouette is within normal limits. Bones and soft tissues are unremarkable. Impression: Normal chest. Reviewed, dictated and finalized at location . Impression: Normal chest.
--- NOTE | 2024-09-01 11:55 | ECG_ITS ---
Test Date: 2024-09-01 12:03:12 Measurements Intervals [place] Rate: 58 P: 73 MD: 140 QRS: 82 QRSD: 103 T: 58 QT: 434 QTc: 427 Interpretive Statements SINUS BRADYCARDIA POSSIBLE LEFT ATRIAL ENLARGEMENT [-0.1mV P-WAVE IN V1/V2] INCOMPLETE RIGHT BUNDLE BRANCH BLOCK [90+ ms QRS DURATION, TERMINAL R IN V1/V2, 40+ ms S IN I/aVL/V4/V5/V6] MODERATE ST DEPRESSION [0.05+ mV ST DEPRESSION] No previous ECG available for comparison Electronically Signed On 09-02-2024 09:37:24 CDT by Eduardo Jo M.D.
== END 2024-09-01 11:45 | disposition home or self-care (01) ==
LOC: CHSIMG 11:50
PROVIDERS: PCP Internal Medicine; Visit Provider Internal Medicine
DX: I10 Essential (primary) hypertension (principal); R00.1 Bradycardia, unspecified; I45.19 Other right bundle-branch block
CPT/HCPCS: 71046; 93005

== ENCOUNTER 2024-09-18 14:47 | Outpatient (CLI) | payer OTHER, SELFPAY ==
--- NOTE | 2024-09-18 14:52 | ECHO_ITS ---
Patient Info Name: Faiza Serna Age: 49 years : 1975 Gender: Female Ht: 65 in Wt: 157 lbs BSA: 1.82 m2 HR: 65 bpm BP: 159 / 91 mmHg Heart Rhythm: Sinus Rhythm Technical Quality: Fair Exam Date: 09/18/2024 3:43 PM Exam Location: Echo Lab Patient Status: Outpatient Admit Date: 09/18/2024 Staff Ordering Physician: Edu Laguna MD Windows Laptop Technician: Toney Kyle RDCS Attending Provider: Edu Laguna MD Exam Type: CA echo doppler color flow Study Info Indications - abn ekg Complete two-dimensional, color flow and Doppler transthoracic echocardiogram is performed. Summary 1. Complete two-dimensional, color flow and Doppler transthoracic echocardiogram is performed. 2. Left ventricular chamber dimension is normal. 3. Left ventricular systolic function is normal, estimated at 55-60%. 4. The left ventricular diastolic function is normal. 5. E/e' 4 is not elevated. 6. The aortic valve is not well visualized. Cannot determine number of aortic valve leaflets. 7. There is mild aortic valve stenosis based on a peak velocity of 159 cm/s, mean gradient of 6 mmHg, and aortic valve area of 1.4 cm2. 8. No pulmonary hypertension, estimated pulmonary arterial systolic pressure is 26 mmHg. Left Ventricle E/e' 4 is not elevated. Left ventricular chamber dimension is normal. Left ventricular systolic function is normal, estimated at 55-60%. The left ventricular diastolic function is normal. Right Ventricle Right ventricular chamber dimension is normal. Right ventricular systolic function is normal. Left Atria Left atrial chamber dimension is normal. Right Atria Right atrial chamber dimension is normal. Aortic Valve There is mild aortic valve stenosis based on a peak velocity of 159 cm/s, mean gradient of 6 mmHg, and aortic valve area of 1.4 cm2. The aortic valve is not well visualized. Cannot determine number of aortic valve leaflets. There is no aortic valve regurgitation. Pulmonic Valve There is no pulmonic regurgitation. Mitral Valve There is no mitral valve stenosis. There is no mitral valve regurgitation. Tricuspid Valve There is no tricuspid valve regurgitation. No pulmonary hypertension, estimated pulmonary arterial systolic pressure is 26 mmHg. Pericardium/Pleural There is no pericardial effusion. Inferior Vena Cava Normal inferior vena cava with >50% collapse upon inspiration consistent with normal right atrial pressure, 5 mmHg. Aorta The aortic root size at the sinus of Valsalva is normal. Left Ventricular Outflow Tract Name Value Normal LVOT 2D LVOT Diameter 1.8 cm LVOT Doppler LVOT Peak Velocity 89 cm/s LVOT Peak Gradient 3 mmHg LVOT Mean Gradient 2 mmHg LVOT VTI 21 cm LVOT VTI/AV VTI Ratio 0.5 LVOT Stroke Volume 56 ml Mitral Valve Name Value Normal MV Doppler MV Decel [place] 0 cm/s2 MV PHT 0 ms MV Diastolic Function MV E Peak Velocity 14 cm/s MV A Peak Velocity 14 cm/s MV E/A 1.0 MV Decel Time 0 ms Tricuspid Valve Name Value Normal TV Regurgitation Doppler TR Peak Velocity 231 cm/s TR Peak Gradient 13 mmHg Estimated PAP/RSVP RA Pressure 5 mmHg <=5 PA Systolic Pressure 26 mmHg <36 RV Systolic Pressure 26 mmHg <36 Aortic Valve Name Value Normal AV Doppler AV Peak Velocity 159 cm/s AV Peak Gradient 10 mmHg AV Mean Gradient 6 mmHg AV VTI 40 cm AV Area (Cont Eq VTI) 1.4 cm2 >=3.0 AV Area (Cont Eq Flaco) 1.5 cm2 AV V1/V2 Ratio 0.56 AV Regurgitation 2D LVOT Area 2.6 cm2 Ventricles Name Value Normal LV Dimensions 2D/MM IVS Diastolic Thickness (2D) 1.1 cm 0.6-1.0 LVID Diastole (2D) 3.4 cm 3.8-5.2 LVIW Diastolic Thickness (2D) 0.8 cm 0.6-0.9 LVID Systole (2D) 2.5 cm 2.2-3.5 LVOT Diameter 1.8 cm LV Mass (2D Cubed) 94.07 g 67.00-162.00 LV Mass Index (2D Cubed) 52 g/m2 43-95 Relative Wall Thickness (2D) 0.46 LV Fractional Shortening/Ejection Fraction 2D/MM LV Fractional Shortening (2D) 29 % 27-45 LV EF (2D Teicholz) 57 % 54-74 LV Diastolic Volume (4C MOD) 88 ml LV EF (4C MOD) 55 % LV Diastolic Volume (2C MOD) 97 ml LV EF (2C MOD) 68 % LV Diastolic Volume (BP MOD) 94 ml 46-106 LV Diastolic Volume Index (BP MOD) 52 ml/m2 29-61 LV Systolic Volume (BP MOD) 36 ml 14-42 LV Systolic Volume Index (BP MOD) 20 ml/m2 8-24 LV EF (BP MOD) 62 % 54-74 LV Diastolic Length (4C) 8.5 cm LV Systolic Length (4C) 6.7 cm LV Stroke Volume (4C MOD) 48 ml Atria Name Value Normal LA Dimensions LA Volume (4C A-L) 27 ml LA Volume (BP A-L) 36 ml RA Dimensions RA Area (4C) 10.8 cm2 <=18.0 Report Signatures
== END 2024-09-18 14:48 | disposition home or self-care (01) ==
PROVIDERS: PCP Internal Medicine; Visit Provider Internal Medicine
DX: R94.31 Abnormal electrocardiogram [ECG] [EKG] (principal); I35.0 Nonrheumatic aortic (valve) stenosis
CPT/HCPCS: 93306

== ENCOUNTER 2024-11-20 07:55 | Outpatient (RCR) | payer OTHER, SELFPAY ==
--- NOTE | 2024-11-20 08:57 | OPREHPOC ---
Outpatient Therapy Plan of Care This is a Multidisciplinary Plan of Care that may contain components documented by all disciplines (PT, OT, and ST.) PT Problem 1 PT Problem #1 Knowledge Deficit PT Goal 1 Goal / Goal Update 1. independent and compliant with HEP Target Visit 6 PT Problem 2 PT Problem #2 Pain PT Goal 1 Goal / Goal Update 1.decrease pain at worst to 3/10 or less in the L hip Target Visit 12 PT Problem 3 PT Problem #3 Impaired Strength PT Goal 1 Goal / Goal Update 1. improve bilat hip strength to 5/5 overall 2. improve L ankle DF to 5/5 Target Visit 12 PT Problem 4 PT Problem #4 Impaired Functional Mobility PT Goal 1 Goal / Goal Update 1. patient to ambulate 15 minutes without pain in the L hip 2. patient to ambulate up and down steps with reciprocal mechanics and no pain in the L hip 3. LEFS to display 30% or less functional deficits 4. patient to feel good enough functionally to avoid surgery of the L hip Target Visit 12
--- NOTE | 2024-11-20 08:57 | PTOPEVAL1 ---
Assessment and note entered by JT File, PT Evaluation Information Assessment Status Evaluation ICD-10 Condition Codes (PT) Pain in left hip M25.552 Other ICD-10 Condition Codes ( S73.192D PT) Onset 11/17/24 Subjective Information patient reports she has been having pain in the L hip for about 1 year. 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 she reports she had some work done to the knee as this is where her pain was initially. she reports she had injections of the L knee that helped initially. she reports she is now most bothered by the L hip. she reports she has increased pain with walking. she reports the MRI showed a tear of the L acetabular labrum. she reports she had an injection, but it did not help. she reports she also has increased pain with going up and down steps. she reports she does get any NTB in the legs, but reports she can push herself through the day and then both of her legs will feel weak. she has pain from the groin to the outside of the L hip, and will sometimes radiate down the leg to the back of the knee. Reported Pain Level Pain Score 5: Self Report Assessment PT Clinical Summary mrs. ware is a 49 yo woman who presents to skilled PT services for evaluation and treatment of L hip pain and labral tear. she presents today with deficits in hip strength, pain with ambulation/stairs, and pain in the groin as well as the buttock and back of the hip. patient reports her tear is in the front of the L hip, suggesting she may have some sciatica type pain down the back of the L LE compared to labral tear symptoms. continued skilled PT is indicated to improve her objective/functional deficits and progress towards a return to her prior level functional activity performance/quality of life. Plan of Care Interventions Electrical Stimulation,Gait Training,Hot Pack/Cold Pack,Manual Therapy,Neuro Re-education,Patient/ Caregiver Education,Therapeutic Activities, Therapeutic Exercise PT Services Indicated Yes Treatment Frequency and 2x weekly for 12 visits Duration These treatments will address the objective and functional deficits as defined above. The patient will be advanced safely and appropriately in order for the patient to progress towards his/her prior level of function. Additional exercises will be introduced and as well as a comprehensive home exercise program upon discharge, if needed, ?to ensure carryover of functional gains achieved in the clinic. This treatment plan has been reviewed and agreement upon by the patient.
--- NOTE | 2024-12-18 09:57 | OPREHPOC ---
Outpatient Therapy Plan of Care This is a Multidisciplinary Plan of Care that may contain components documented by all disciplines (PT, OT, and ST.) PT Problem 1 PT Problem #1 Knowledge Deficit PT Goal 1 Goal / Goal Update 1. independent and compliant with HEP Target Visit 6 Progress Met PT Problem 2 PT Problem #2 Pain PT Goal 1 Goal / Goal Update 1.decrease pain at worst to 3/10 or less in the L hip Target Visit 12 Progress Not Met PT Problem 3 PT Problem #3 Impaired Strength PT Goal 1 Goal / Goal Update 1. improve bilat hip strength to 5/5 overall 2. improve L ankle DF to 5/5 Target Visit 12 Progress Not Met PT Problem 4 PT Problem #4 Impaired Functional Mobility PT Goal 1 Goal / Goal Update 1. patient to ambulate 15 minutes without pain in the L hip 2. patient to ambulate up and down steps with reciprocal mechanics and no pain in the L hip 3. LEFS to display 30% or less functional deficits 4. patient to feel good enough functionally to avoid surgery of the L hip Target Visit 12 Progress Not Met
--- NOTE | 2024-12-18 09:57 | PTOPPROGNS ---
Assessment and note entered by JT File, PT Evaluation Information Assessment Status Progress ICD-10 Condition Codes (PT) Pain in left hip M25.552 Other ICD-10 Condition Codes ( S73.192D PT) Onset 11/17/24 Subjective Information patient reports she is still most affected by walking. she reports she is only able to walk about a block and half before her whole L leg starts to hurt. she denies pain in the anterior L hip. she reports all of her pain in the lower back and posterior L hip. Assessment PT Clinical Summary mrs. ware arrives to therapy for her 9th skilled PT visit today. she displays improved bilateral hip abduction strength, improved L hip flexion strength, but continued pain (especially with walking). she has met HEP goal, but no other goals at this time. her symptoms continue to be more inline with a lumbar radicular or sciatica issue at this time. she would benefit from continued skilled PT to address her objective/functional deficits. she may also benefit from MRI of the lumbar spine to assess her level of damage/injury in the lower spine. Plan of Care Interventions Electrical Stimulation,Gait Training,Hot Pack/Cold Pack,Manual Therapy,Neuro Re-education,Patient/ Caregiver Education,Therapeutic Activities, Therapeutic Exercise PT Services Indicated Yes Treatment Frequency and continue per initial POC Duration These treatments will address the objective and functional deficits as defined above. The patient will be advanced safely and appropriately in order for the patient to progress towards his/her prior level of function. Additional exercises will be introduced and as well as a comprehensive home exercise program upon discharge, if needed, ?to ensure carryover of functional gains achieved in the clinic. This treatment plan has been reviewed and agreement upon by the patient.
--- NOTE | 2024-12-31 09:38 | OPREHPOC ---
Outpatient Therapy Plan of Care This is a Multidisciplinary Plan of Care that may contain components documented by all disciplines (PT, OT, and ST.) PT Problem 1 PT Problem #1 Knowledge Deficit PT Goal 1 Goal / Goal Update 1. independent and compliant with HEP Target Visit 6 Progress Met PT Problem 2 PT Problem #2 Pain PT Goal 1 Goal / Goal Update 1.decrease pain at worst to 3/10 or less in the L hip Target Visit 12 Progress Not Met PT Problem 3 PT Problem #3 Impaired Strength PT Goal 1 Goal / Goal Update 1. improve bilat hip strength to 5/5 overall 2. improve L ankle DF to 5/5 Target Visit 12 Progress Not Met PT Problem 4 PT Problem #4 Impaired Functional Mobility PT Goal 1 Goal / Goal Update 1. patient to ambulate 15 minutes without pain in the L hip -not met 2. patient to ambulate up and down steps with reciprocal mechanics and no pain in the L hip - not met 3. LEFS to display 30% or less functional deficits -not met 4. patient to feel good enough functionally to avoid surgery of the L hip -not met Target Visit 12 Progress Not Met
--- NOTE | 2024-12-31 09:38 | PTOPDC ---
Assessment and note entered by Coty Horton, PT Evaluation Information Assessment Status Discharge ICD-10 Condition Codes (PT) Pain in left hip M25.552 Other ICD-10 Condition Codes ( S73.192D PT) Onset 11/17/24 Subjective Information Faiza Serna reports she went to the doctor last week and she was ordered a CT scan from her waist to her feet. She reports the CT scan showed she may have poor circulation. She is waiting to hear from her doctor on the plan following the CT scan. She continues to have left LE pain and Dr. Laguna had a MRI ordered that did not show much. She saw Dr. Osborn on 12/30/24 and he wanted her to try another cortisone injection in her left hip. She had a cortisone injection in November 2024 in the left hip and that did not change her symptoms. She has not been able to work at [employer] due to her leg. She continues to have difficulty walking and is limited to less than 2 blocks. She notes pain starts in her ankle and moves all the way up the left leg to the hip. She also has numbness and tingling in her left more than right thigh. She also has mild low back pain in the middle. She is noting a little less pain since lumbar traction has been included in her treatments. Reported Pain Level Pain Score 3,10,10: Self Report Assessment PT Clinical Summary Faiza Serna has completed 12 skilled PT visits for left hip pain. She is reporting no overall change in her left LE pain. She does have less pain the day she has mechanical lumbar traction. She initially started PT with focus on her left hip however, further testing revealed her symptoms may be a lumbar radiculopathy. She objectively demonstrates improved hip strength since initiating PT however, she continues to have core weakness, decreased and painful lumbar flexion AROM, positive special tests for lumbar nerve root impingement, and decreased tolerance for walking. She will be discharged from skilled PT for her left hip and she has a new order to initiate PT for her lumbar spine. Plan of Care PT Services Indicated No
== END 2024-12-31 15:57 | disposition home or self-care (01) ==
LOC: CHSPT 07:55
DX: S73.192D Other sprain of left hip, subsequent encounter (principal); M25.552 Pain in left hip
CPT/HCPCS: 97012; 97014; 97110; 97140; 97161; G0283

== ENCOUNTER 2024-12-08 11:43 | Outpatient (CLI) | payer OTHER, SELFPAY ==
--- NOTE | ~2024-12-08 | XR_ITS ---
EXAM: XR lumbar spine 2-3V DATE: 12/08/2024 11:59 HISTORY: Back Pain with Lumbar Radiculopathy . COMPARISON: None available. FINDINGS: 5 nonrib-bearing lumbar-type vertebral bodies. Pedicles intact. Trace retrolistheses at L2 -3 L3-4 and L4-5. Mild presumably physiologic anterior wedging at the thoracolumbar junction, stable. Multilevel disc space narrowing, moderate at L2-3. Moderate lower lumbar facet hypertrophy and scler osis. No fracture or dislocation. IMPRESSION: Multilevel grade 1 anterolistheses. Multilevel degenerative disc disease, moderate at L2- 3. Moderate lower lumbar facet arthropathy. Reviewed, dictated and finalized at location K. NERATOR OPERATOR IMPRESSION: Multilevel grade 1 anterolistheses. Multilevel degenerative disc di sease, moderate at L2-3. Moderate lower lumbar facet arthropathy.
--- OUTSIDE RECORDS SUMMARY | 2024-12-08 12:57 | XMS_ITS | Clinical Summary ---
Author Organization [facility] [address] [facility] Address [address] [place] [address] Care Team Providers Care Flower Cheniller Name Role Phone Edu Laguna MD Primary Care Provider [phone] Allergies Active Allergy Reactions Criticality Noted Date Comments Erythromycin Stomach upset Low 07/02/2023 Penicillins Stomach upset Low 07/02/2023 Medications gabapentin (NEURONTIN) 300 mg capsule Take 1 capsule (300 mg total) by mouth 3 (three) times a day Active escitalopram (LEXAPRO) 10 mg tablet Take 1 tablet (10 mg total) by mouth daily Active famotidine (PEPCID) 40 mg tablet Take 1 tablet (40 mg total) by mouth daily Active diclofenac DR (VOLTAREN) 75 mg EC tablet Take 1 tablet (75 mg total) by mouth 2 (two) times a day 4 Active folic acid (FOLVITE) 1 mg tabletIndication s:Rheumatoid arthritis, involving unspecified site, unspecified whether rheumatoid factor present (HCC),High risk medication use Take 1 tablet (1 mg total) by mouth daily 90 tablet 3 4 08/26/20 25 Active hydroxychloroqui ne (PLAQUENIL) 200 mg tabletIndication s:Rheumatoid Arthritis Take 1 tablet (200 mg total) by mouth 2 (two) times a day 180 tablet 2 4 08/26/20 25 Active adalimumab (Humira,CF, Pen) 40 mg/0.4 mL pen injector kit Inject 0.4 mL (40 mg total) under the skin every 14 (fourteen) days 2 each 5 4 04/08/20 25 Active methotrexate 2.5 mg tabletIndication s:Rheumatoid Arthritis Take 8 tablets (20 mg total) by mouth once a week 96 tablet 4 11/18/19 25 predniSONE (DELTASONE) 5 mg tabletIndication s:autoimmune disease Take 4 tablets (20 mg) by mouth daily for 5 days, THEN 3 tablets (15 mg) daily for 5 days, THEN 2 tablets (10 mg) daily for 5 days, THEN 1 tablet (5 mg) daily for 5 days. 50 tablet 4 11/10/19 25 Active Problems Problem Noted Date Diagnosed Date Nicotine dependence 07/02/2023 Rheumatoid arthritis 07/02/2023 Encounters Date Type Department Care Team Description 10/28/2024 Telephone [facility] [address] [facility] [address] [place] [id number] Libby Lazo [facility] 10/21/2024 11:00 AM TECHNOLOGY RISK INTERN Office Visit [facility] Rheumatology [address] [place] [address] [address] [place] [address] Sherita Tripp MD Rheumatoid arthritis involving multiple sites with positive rheumatoid factor (CMS/HCC) (HCC) (Primary Dx); Need for influenza vaccination; High risk medication use; Cigarette nicotine dependence with nicotine-induced disorder 09/23/2024 11:35 AM TECHNOLOGY RISK INTERN [address] [address] Rheumatoid arthritis involving multiple sites with positive rheumatoid factor (CMS/HCC) (HCC); High risk medication use from Last 3 Months Immunizations Name Administration Dates Next Due Influenza, Quadrivalent, Hig h Dose, Preservative Free, Intrr 10/01/2023 Influenza, Trivalent, High D ose, Split, Preservative Free, Intramuscular 10/21/2024 Pneumococcal Conjugate Pcv20 10/01/2023 Medical History Medical History Date Comments Osteoarthritis Rheumatoid arthritis (HCC) Fibromyalgia, primary Family History Medical History Relation Name Comments Hypertension Father Pancreatic cancer Father Colon cancer Mother Hypertension Mother Osteoarthritis Mother Relation Name Status Comments Father Mother Social History Tobacco Use Types Packs/Day Years Used Date Smoking Tobacco: Every Day Cigarettes Smokeless Tobacco: Never Tobacco Cessation:Ready to Q uit: No; Counseling Given: No Social Connection and Isolation Panel [NHANES] A nswer Date Recorded In a typical week, how many times do you talk on the phone with family, friends, or neighbors? Once a week 01/23/2024 How often do you get together with friends or re latives? Once a week 01/23/2024 How often do you attend moravian or latter-day serv ices? Never 01/23/2024 Do you belong to any clubs o r organizations such as moravian groups, unions, fraternal or athletic groups, or school groups? No 01/23/2024 How often do you attend meet ings of the clubs or organizations you belong to? Not asked 01/23/2024 Are you , , di vorced, , never , or living with a partner? 01/23/2024 Overall Financial Resource Strain (CARDIA) Answe r Date Recorded How hard is it for you to pa y for the very basics like food, housing, medical care, and heating? Not hard at all 01/23/2024 PHQ-2 Answer Date Recorded Patient Health Questionnaire-2 Score 0 01/23/2024 [facility] Occupat ional [facility] - Occupational Stress Questionnaire Answer Date Recorded Do you feel stress - tense, restless, nervous, or anxious, or unable to sleep at night because your mind is troubled all the time - these days? Not at all 01/23/2024 Exercise Vital Sign Answer Date Recorde d On average, how many days pe r week do you engage in moderate to strenuous exercise (like a brisk walk)? 7 days 01/23/2024 On average, how many minutes do you engage in exercise at this level? 150+ min 01/23/2024 Hunger Vital Sign Answer Date Recorded Within the past 12 months, y ou worried that your food would run out before you got the money to buy more. Never true 01/23/20 24 Within the past 12 months, t he food you bought just didn't last and you didn't have money to get more. Never true 01/23/2024 PRAPARE - Transportation Answer Date Re corded In the past 12 months, has l ack of transportation kept you from medical appointments or from getting medications? No 01/04 In the past 12 months, has l ack of transportation kept you from meetings, work, or from getting things needed for daily living? No 01/23/2024 Housing Stability Vital Sign Answer Eric e Recorded In the last 12 months, was t here a time when you were not able to pay the mortgage or rent on time? No 01/23/2024 In the last 12 months, how many places have you lived? 1 01/23/2024 In the last 12 months, was t here a time when you did not have a steady place to sleep or slept in a halfway (including now)? No 01/23/2024 Comments Unknown Sex and Gender Information Value Date Recorded Sex Assigned at Not on file Legal Sex Female 3:24 PM CDT Gender Identity Not on file Sexual Orientation Not on file Obstetrics History Last Filed Vital Signs Vital Sign Reading Time Taken Comments Blood Pressure 158/89 10/21/2024 10:34 AM TECHNOLOGY RISK INTERN Pulse 59 10/21/2024 10:34 AM TECHNOLOGY RISK INTERN Temperature 36.3 ??C (97.4 ??F) 10/21/2024 10:[address] Respiratory Rate - - Oxygen Saturation 98% 10/21/2024 10:34 AM TECHNOLOGY RISK INTERN Inhaled Oxygen Concentration - - Weight 67.6 kg (149 lb) 10/21/2024 10:34 AM TECHNOLOGY RISK INTERN Height 165.1 cm (5' 5 ) 10/21/2024 10:34 AM TECHNOLOGY RISK INTERN Body Mass Index 24.79 10/21/2024 10:34 AM TECHNOLOGY RISK INTERN Plan of Treatment Health Maintenance Due Date Last Done Comments Breast Cancer Screening-Mammogram 1975 Cervical Cancer Screening 1975 Colon Cancer Screening-Colonoscopy 1975 DTaP/Tdap/Td Vaccine (1 - Tdap) 1986 Regular Well Visit/Exam 18-64 1993 Zoster Vaccine (1 of 2) 1994 Depression Screening 01/22/2025 01/23/2024, 07/02/20 23 Pneumococcal vaccine <65 Completed 10/01/2023 Hepatitis B Screening Completed 06/24/2024 Hepatitis C Screening Completed 06/24/2024, 023 Influenza Vaccine Completed 10/21/2024, 10/01/2023 Procedures Procedure Name Priority Date/Time Associated Diagnosis Comments EGFR Routine 09/23/2024 11:39 AM TECHNOLOGY RISK INTERN High risk medication use DIFFERENTIAL AUTO Routine 09/23/2024 11: 39 AM TECHNOLOGY RISK INTERN High risk medication use COMPREHENSIVE METABOLIC PANEL Routine 09/23/2024 11:39 AM TECHNOLOGY RISK INTERN High risk medication use CBC WITH AUTO DIFFERENTIAL Routine 09/23/2024 11:39 AM TECHNOLOGY RISK INTERN High risk medication use ERYTHROCYTE SEDIMENTATION RATE Routine 09/23/2024 11:39 AM TECHNOLOGY RISK INTERN Rheumatoid arthritis involving multiple sites with positive rheumatoid factor (CMS/HCC) (HCC) High risk medication use HEPATITIS C ANTIBODY Routine 06/24/2024 11:43 AM CDT Rheumatoid arthritis involving multiple sites with positive rheumatoid factor (CMS/HCC) (HCC) High risk medication use from Last 3 Months or Most Recently Relevant to Health Maintenance Results * eGFR (09/23/2024 11:39 AM TECHNOLOGY RISK INTERN) eGFR >90 >=60 mL/min/1. 73 m2 Comment: Interpretive Data Reference Interval Normal ?>/= 90 mL/min/1.73m2 Mildly decreased* ? 60 - 89 mL/min/1.73m2 Mildly to moderately decreased ?45 - 59 mL/min/1.73m2 Moderately to severely decreased ??30 - 44 mL/min/1.73m2 Severely decreased ?15 - 29 mL/min/1.73m2 Kidney Failure ?< 15 ??mL/min/1.73m2 *Relative to young adult level Estimated glomerular filtration rate is determined by the 2020 CKD-EPI equation recommended by the National Kidney Foundation (A Unifying Approach to GFR Estimation: Recommendations of the NKF-ASK Task Force on Reassessing the Inclusion of Race in Diagnosing Kidney Disease, JASN 2020). The CKD-EPI equation should not be used for patients with unstable renal function and has not been validated in children and those over 70. Current interpretive data was last reviewed 2021. Blood 09/23/2024 11:3 9 AM TECHNOLOGY RISK INTERN 09/23/2024 12:27 PM TECHNOLOGY RISK INTERN us Sherita Tripp MD LAB BLOOD ORDERABLES F inal Result [facility] ([place]) 1 [facility] Department [place] [address] * Differential, auto (09/23/2024 11:39 AM TECHNOLOGY RISK INTERN) Neutrophil abs 5.6 1.5 - 6.5 K/cumm Imm gran abs 0.0 0.0 - 0.1 K/cumm [facility] ([place]) Lymphocyte abs 1.4 0.8 - 3.3 K/cumm [facility] ([place]) Monocyte abs 0.6 0.2 - 0.8 K/cumm [facility] ([place]) Eosinophil abs 0.1 0.0 - 0.5 K/cumm [facility] ([place]) Basophil abs 0.1 0.0 - 0.1 K/cumm [facility] ([place]) Neutrophil pct 72.1 % [facility] ([place]) Comment: Interpretive Data Percent cell count reference ranges are not reported, since discordance with absolute values may lead to misinterpretation of CBC data. Current Interpretive Data was last revised on 2018. Imm gran pct 0.3 % [facility] ([place]) Comment: Interpretive Data Percent cell count reference ranges are not reported, since discordance with absolute values may lead to misinterpretation of CBC data. Current Interpretive Data was last revised on 2018. Lymphocyte pct 17.8 % [facility] ([place]) Comment: Interpretive Data Percent cell count reference ranges are not reported, since discordance with absolute values may lead to misinterpretation of CBC data. Current Interpretive Data was last revised on 2018. Monocyte pct 7.1 % [facility] ([place]) Comment: Interpretive Data Percent cell count reference ranges are not reported, since discordance with absolute values may lead to misinterpretation of CBC data. Current Interpretive Data was last revised on 2018. Eosinophil pct 1.8 % [facility] ([place]) Comment: Interpretive Data Percent cell count reference ranges are not reported, since discordance with absolute values may lead to misinterpretation of CBC data. Current Interpretive Data was last revised on 2018. Basophil pct 0.9 % [facility] ([place]) Comment: Interpretive Data Percent cell count reference ranges are not reported, since discordance with absolute values may lead to misinterpretation of CBC data. Current Interpretive Data was last revised on 2018. Blood 09/23/2024 11:3 9 AM TECHNOLOGY RISK INTERN 09/23/2024 12:27 PM TECHNOLOGY RISK INTERN us Sherita Tripp MD LAB BLOOD ORDERABLES F inal Result [facility] [address] [facility] Department [place] [address] * (ABNORMAL) CBC with auto differential (09/23/2024 11:39 AM TECHNOLOGY RISK INTERN) WBC 7.8 3.8 - 9.9 K/cumm Hgb 14.6 11.9 - 15.5 g/dL [facility] ([place]) Hct 43.0 35.6 - 45.5 % [facility] ([place]) Plt 251 150 - 400 K/cumm [facility] ([place]) MPV 10.2 9.1 - 12.3 fL [facility] ([place]) RBC 4.55 3.90 - 5.20 M/cumm [facility] ([place]) MCV 94.5 81.3 - 96.4 fL [facility] ([place]) MCH 32.1 27.1 - 33.3 pg [facility] ([place]) MCHC 34.0 32.3 - 35.7 g/dL [facility] ([place]) RDW CV 14.6 11.1 - 14.9 % [facility] ([place]) RDW SD 50.4(H) 35.7 - 48.1 fL [facility] ([place]) NRBC abs 0.00 0.00 - 0.01 K/cumm [facility] ([place]) Blood 09/23/2024 11:3 9 AM TECHNOLOGY RISK INTERN 09/23/2024 12:27 PM TECHNOLOGY RISK INTERN Sherita Tripp MD LAB BLOOD ORDERABLES F inal Result Performing Organization Address City/[facility]/ZIP Co de Phone Number [facility] ([place]) 1 [facility] [place] [address] * Erythrocyte sedimentation rate (09/23/2024 11:39 AM TECHNOLOGY RISK INTERN) Pathologist [facility] Erythrocyte sedimentation rate 14 1 - 20 mm/hr Blood 09/23/2024 11:3 9 AM TECHNOLOGY RISK INTERN 09/23/2024 12:27 PM TECHNOLOGY RISK INTERN Sherita Tripp MD LAB BLOOD ORDERABLES F inal Result Performing Organization Address [facility]/RUST de Phone Number [facility] ([place]) 1 [facility] [place] [address] * Comprehensive metabolic panel (09/23/2024 11:39 AM TECHNOLOGY RISK INTERN) Sodium 139 135 - 145 mmol/L Potassium, pl 4.0 3.3 - 4.9 mmol/L [facility] ([place]) Chloride 104 97 - 110 mmol/L [facility] ([place]) CO2 27 22 - 32 mmol/L [facility] ([place]) Anion gap 9 2 - 15 mmol/L [facility] ([place]) BUN 11 6 - 25 mg/dL [facility] ([place]) Creatinine 0.67 0.60 - 1.10 mg/dL [facility] ([place]) Glucose 95 70 - 199 mg/dL [facility] ([place]) Comment: Interpretive Data Fasting glucose >/= 126 mg/dl is diagnostic for diabetes. ?? Fasting is defined as no caloric intake for at least 8 hours. Fasting glucose between 100 mg/dl to 125 mg/dl is diagnostic of prediabetes. In a patient with classic symptoms of hyperglycemia or hyperglycemic crisis, a random glucose >/= 200 mg/dl is diagnostic for diabetes. In the absence of unequivocal hyperglycemia, results should be confirmed by repeat testing. The classification and Diagnosis of Diabetes Diabetes Care 202; 46: S19-S40. Current interpretive data was last revised 2022. Calcium 9.2 8.5 - 10.3 mg/dL [facility] ([place]) Bilirubin, total 0.3 0.1 - 1.2 mg/dL [facility] ([place]) Protein, pl 6.9 6.5 - 8.5 g/dL [facility] ([place]) Albumin 4.2 3.5 - 5.0 g/dL [facility] ([place]) Alk phos 101 40 - 130 Units/L [facility] ([place]) ALT 27 7 - 45 Units/L [facility] ([place]) AST 17 10 - 45 Units/L [facility] ([place]) Blood 09/23/2024 11:3 9 AM TECHNOLOGY RISK INTERN 09/23/2024 12:27 PM TECHNOLOGY RISK INTERN us Sherita Tripp MD LAB BLOOD ORDERABLES F inal Result [facility] ([place]) 1 [facility] Department [place] [address] * Hepatitis C antibody Blood (06/24/2024 11:43 AM CDT) Pathologist [facility] Hep C Ab Nonreactive Nonreactive Comment: Interpretive Data Nonreactive: Antibodies to HCV not detected. Does NOT exclude the possibility of recent exposure to HCV. Equivocal: Equivocal for HCV antibodies. Supplemental molecular testing will be automatically performed to determine infection status in accordance with current CDC screening recommendations. ?? Reactive: Positive for HCV antibodies. ??This may represent current or past HCV infection. Supplemental molecular testing will be automatically performed to determine ??current infection status in accordance with current CDC screening recommendations. Interpretive data was last revised on 2020. Blood 06/24/2024 11:4 3 AM CDT 06/24/2024 2:30 PM CDT Sherita Tripp MD LAB MICROBIOLOGY - GEN ERAL ORDERABLES Final Result Performing Organization Address City/State/[place] Number [place] [address] [facility] Department [place] [address] from Last 3 Months or Most Recently Relevant to Health Maintenance Insurance A[employer] [facility] AET BETTER [facility] Care Teams Flower Cheniller Relationship Specialty Start Date End Date Edu Laguna MD PCP - General Internal Medicine 02/23/23
--- OUTSIDE RECORDS SUMMARY | 2024-12-08 12:57 | XMS_ITS | Referral Summary ---
Author Organization [place] [id number] [facility] Address [address] [place] [address] Care Team Providers Care House Registry Rn Name Role Phone Edu Laguna MD Primary Care Provider [phone] Encounters Date Type Department Care Team Description 10/28/2024 Telephone [facility] [address] [facility] [address] [place] [address] Libby Lazo [facility] 10/21/2024 11:00 AM CENTER CUSTOMER SERVICE ASSOCIATE Office Visit [facility] Rheumatology [address] [place] [address] [address] [place] [address] Sherita Tripp MD Rheumatoid arthritis involving multiple sites with positive rheumatoid factor (CMS/HCC) (HCC) (Primary Dx); Need for influenza vaccination; High risk medication use; Cigarette nicotine dependence with nicotine-induced disorder 09/23/2024 11:35 AM CENTER CUSTOMER SERVICE ASSOCIATE Lab [address] [address] Rheumatoid arthritis involving multiple sites with positive rheumatoid factor (CMS/HCC) (HCC); High risk medication use from Last 3 Months Allergies Active Allergy Reactions Criticality Noted Date [...] Date Nicotine dependence 07/02/2023 Rheumatoid arthritis 07/02/2023 Immunizations Name Administration Dates Next Due Influenza, Quadrivalent, Hig h Dose, Preservative Free, Intrr 10/01/2023 Influenza, Trivalent, High D ose, Split, Preservative Free, Intramuscular 10/21/2024 Pneumococcal Conjugate Pcv20 10/01/2023 Social History Tobacco Use Types Packs/Day Years [...] week 01/23/2024 How often do you attend jehovah's witness or christian serv ices? Never 01/23/2024 Do you belong to any clubs o r organizations such as jehovah's witness groups, unions, fraternal or athletic groups, or [...] Recorded Patient Health Questionnaire-2 Score 0 01/23/2024 [facility] of Occupat ional [facility] - Occupational Stress Questionnaire Answer Date Recorded [...] place to sleep or slept in a long-term (including now)? No 01/23/2024 Comments Unknown Sex and Gender Information Value Date Recorded Sex Assigned at Not on file Legal Sex Female 3:24 PM CDT Gender Identity Not on file Sexual Orientation Not on file Last Filed Vital Signs Vital Sign Reading Time Taken Comments Blood Pressure 158/89 10/21/2024 10:34 AM CENTER CUSTOMER SERVICE ASSOCIATE Pulse 59 10/21/2024 10:34 AM CENTER CUSTOMER SERVICE ASSOCIATE Temperature 36.3 ??C (97.4 ??F) 10/21/2024 10:[address] Respiratory Rate - - Oxygen Saturation 98% 10/21/2024 10:34 AM CENTER CUSTOMER SERVICE ASSOCIATE Inhaled Oxygen Concentration - - Weight 67.6 kg (149 lb) 10/21/2024 10:34 AM CENTER CUSTOMER SERVICE ASSOCIATE Height 165.1 cm (5' 5 ) 10/21/2024 10:34 AM CENTER CUSTOMER SERVICE ASSOCIATE Body Mass Index 24.79 10/21/2024 10:34 AM CENTER CUSTOMER SERVICE ASSOCIATE Plan of Treatment Not on file Procedures Procedure Name Priority Date/Time Associated Diagnosis Comments EGFR Routine 09/23/2024 11:39 AM CENTER CUSTOMER SERVICE ASSOCIATE High risk medication use DIFFERENTIAL AUTO Routine 09/23/2024 11: 39 AM CENTER CUSTOMER SERVICE ASSOCIATE High risk medication use COMPREHENSIVE METABOLIC PANEL Routine 09/23/2024 11:39 AM CENTER CUSTOMER SERVICE ASSOCIATE High risk medication use CBC WITH AUTO DIFFERENTIAL Routine 09/23/2024 11:39 AM CENTER CUSTOMER SERVICE ASSOCIATE High risk medication use ERYTHROCYTE SEDIMENTATION RATE Routine 09/23/2024 11:39 AM CENTER CUSTOMER SERVICE ASSOCIATE Rheumatoid arthritis involving multiple sites with positive rheumatoid factor (CMS/HCC) (HCC) High risk medication use HEPATITIS C ANTIBODY Routine 06/24/2024 11:43 AM CDT Rheumatoid arthritis involving multiple sites with positive rheumatoid factor (CMS/HCC) (HCC) High risk medication use from Last 3 Months or Most Recently Relevant to Health Maintenance Results * eGFR (09/23/2024 11:39 AM CENTER CUSTOMER SERVICE ASSOCIATE) Pathologist [facility] eGFR >90 >=60 mL/min/1. 73 m2 Comment: [...] of Race in Diagnosing Kidney Disease, JASN 202). The CKD-EPI equation should not be used for patients with unstable renal function and has not been validated in children and those over 70. Current interpretive data was last reviewed 2021. Blood 09/23/2024 11:3 9 AM CENTER CUSTOMER SERVICE ASSOCIATE 09/23/2024 12:27 PM CENTER CUSTOMER SERVICE ASSOCIATE us Sherita Tripp MD LAB BLOOD ORDERABLES F inal Result [facility] [place] 1 [facility] Department [place] [address] * Differential, auto (09/23/2024 11:39 AM CENTER CUSTOMER SERVICE ASSOCIATE) Neutrophil abs 5.6 1.5 - 6.5 K/cumm Imm gran abs 0.0 0.0 - 0.1 K/cumm [facility] ([place]) Lymphocyte abs 1.4 0.8 - 3.3 K/cumm [facility] ([place]) Monocyte abs 0.6 0.2 - 0.8 K/cumm [...] on 2018. Blood 09/23/2024 11:3 9 AM CENTER CUSTOMER SERVICE ASSOCIATE 09/23/2024 12:27 PM CENTER CUSTOMER SERVICE ASSOCIATE us Sherita Tripp MD LAB BLOOD ORDERABLES F inal Result [facility] ([place]) 1 [facility] Department [place] [address] * (ABNORMAL) CBC with auto differential (09/23/2024 11:39 AM CENTER CUSTOMER SERVICE ASSOCIATE) WBC 7.8 3.8 - 9.9 K/cumm Hgb [...] RDW SD 50.4(H) 35.7 - 48.1 fL [facility] ([place]) NRBC abs 0.00 0.00 - 0.01 K/cumm [facility] ([place]) Blood 09/23/2024 11:3 9 AM CENTER CUSTOMER SERVICE ASSOCIATE 09/23/2024 12:27 PM CENTER CUSTOMER SERVICE ASSOCIATE us Sherita Tripp MD LAB BLOOD ORDERABLES F inal Result [facility] ([place]) 1 [facility] Department [place] [address] * Erythrocyte sedimentation rate (09/23/2024 11:39 AM CENTER CUSTOMER SERVICE ASSOCIATE) Erythrocyte sedimentation rate 14 1 - 20 mm/hr Blood 09/23/2024 11:3 9 AM CENTER CUSTOMER SERVICE ASSOCIATE 09/23/2024 12:27 PM CENTER CUSTOMER SERVICE ASSOCIATE us Sherita Tripp MD LAB BLOOD ORDERABLES F inal Result [facility] ([place]) 1 [facility] Department [place] [address] * Comprehensive metabolic panel (09/23/2024 11:39 AM CENTER CUSTOMER SERVICE ASSOCIATE) Sodium 139 135 - 145 mmol/L Potassium, pl 4.0 3.3 - 4.9 mmol/L [facility] ([place]) Chloride 104 97 - 110 mmol/L [facility] ([place]) CO2 27 22 - 32 mmol/L [facility] ([place]) Anion gap 9 2 - 15 mmol/L [facility] ([place]) BUN 11 6 - 25 mg/dL [facility] ([place]) Creatinine 0.67 0.60 - 1.10 mg/dL [facility] ([place]) Glucose 95 70 - 199 mg/dL [facility] ([place]) Comment: Interpretive Data Fasting glucose >/= [...] ([place]) AST 17 10 - 45 Units/L [facility] ([place]) Blood 09/23/2024 11:3 9 AM CENTER CUSTOMER SERVICE ASSOCIATE 09/23/2024 12:27 PM CENTER CUSTOMER SERVICE ASSOCIATE Sherita Tripp MD LAB BLOOD ORDERABLES F inal Result Performing Organization Address City/[facility]/ZIP Co de Phone Number [facility] ([place]) 1 [facility] Department [place] [address] * Hepatitis C antibody Blood (06/24/2024 11:43 AM CDT) Hep C Ab Nonreactive Nonreactive Comment: Interpretive [...] ERAL ORDERABLES Final Result Performing Organization Address City/[facility]/ZIP Co de Phone Number [facility] [address] [address] Department [place] [address] from Last 3 Months or Most Recently Relevant to Health Maintenance Insurance AETNA [facility] [employer]NA [facility] Care Teams House Registry Rn Relationship Specialty Start Date End Date Edu Laguna MD PCP - General Internal Medicine 02/23/23
--- OUTSIDE RECORDS SUMMARY | 2024-12-08 12:57 | XMS_ITS | Encounter Summary ---
Author Organization [facility] Address [address] [place] [address]. [place] [address] [place] [address] Care Team Providers Care Pipe Threader Name Role Phone Edu Laguna MD Primary Care Provider [phone] Encounter Details Date Type Department Care Team (Late st Contact Info) Description 11/30/2023 MyChart Message Enc [address] [place] [address] Clover Bolaños, [facility] [address] [facility] [place] [id number] Visit Follow Up Social History Tobacco Use Types Packs/Day Years Used Date Smoking Tobacco: Every Day Cigarettes 1 30 Smokeless Tobacco: Never Alcohol Use Standard Drinks/Week Comments Never 0 (1 standard drink = 0.6 oz pur e alcohol) Comments Unknown Sex and Gender Information Value Date Recorded Sex Assigned at Not on file Legal Sex Female 5:31 PM CDT Gender Identity Not on file Sexual Orientation Not on file documented as of this encounter Plan of Treatment Upcoming Encounters Date Type Department Care Team (Late Contact Info) Description 12/29/2024 8:30 AM MOTOR TUNE UP SPECIALIST Office Visit [address] 1 [place] [address] Ronen Osborn Jr., DO [address] [place] [address] documented as of this encounter Visit Diagnoses Not on filedocumented in this encounter Care Teams Pipe Threader Relationship Specialty Start Date End Date Edu Laguna MD [address] [place] [address] PCP - General INTERNAL MEDICINE 11/12/23 documented as of this encounter
--- OUTSIDE RECORDS SUMMARY | 2024-12-08 12:57 | XMS_ITS | Clinical Summary ---
Author Organization [facility] Address [address] [place] [address]. [place] [address] [place] [address] Care Team Providers Care Line Driver Name Role Phone Edu Laguna MD Primary Care Provider [phone] Allergies Active Allergy Reactions Criticality Noted Date Comments Erythromycin GI Upset Low 07/02/2023 Penicillins GI Upset Low 07/02/2023 Medications escitalopram (LEXAPRO) 10 MG tablet Take 1 tablet (10 mg total) by mouth daily. Active famotidine (PEPCID) 40 MG tablet Take 1 tablet (40 mg total) by mouth daily. Active gabapentin (NEURONTIN) 300 MG capsule Take 1 capsule (300 mg total) by mouth 3 (three) times daily. Active diclofenac EC (VOLTAREN) 75 MG tabletIndications:P rimary osteoarthritis of left knee Take 1 tablet (75 mg total) by mouth 2 (two) times daily. Please contact PCP for future refills. 60 tablet 4 Active adalimumab (HUMIRA, 2 PEN,) 40 MG/0.4ML pen-injector kit Inject 0.4 mLs (40 mg total) into the skin. 4 02/12/20 25 Active losartan (COZAAR) 25 MG tablet 1 tablet (25 mg total). 4 Active folic acid (FOLVITE) 1 MG tablet Take 1 tablet (1 mg total) by mouth daily. 4 Active hydroxychloroquine (PLAQUENIL) 200 MG tablet TAKE 1 TABLET (200 MG TOTAL) BY MOUTH 2 TIMES A DAY. Active Active Problems Problem Noted Date Diagnosed Date Acute right hip pain 09/30/2024 Tear of left acetabular labrum, subsequent encou nter 08/18/2024 Fibromyalgia 08/13/2024 Primary osteoarthritis of left knee 11/30/2023 Seropositive erosive rheumatoid arthritis (CMS/H CC HHS/HCC) 07/02/2023 08/01/2024 Overview (08/13/2024): Sees Presentation Manager Sherita Tripp MD at [facility] in [place], [place] Nicotine dependence 07/02/2023 Encounters Date Type Department Care Team Description 11/18/[address] [address] Ronen Osborn Jr., DO Question 11/17/2024 3:15 PM FLIGHT OPERATION COORDINATOR Office Visit [address] [address] Ronen Osborn Jr., DO Hip Pain (LEFT) 11/17/2024 Travel 10/16/2024 9:50 AM FLIGHT OPERATION COORDINATOR - 10/16/2024 11:59 PM FLIGHT OPERATION COORDINATOR Hospital Encounter [facility] [address] [place] [address] Yolanda Bolaños FNP-HIREN Discharge Disposition: Home or Self Care (Routine Discharge) 10/16/2024 Travel 09/30/2024 10:00 AM FLIGHT OPERATION COORDINATOR Office Visit [address] [address] Yolanda Bolaños FNP-BC MRI Results (LEFT hip) 09/30/2024 Travel 09/23/2024 8:58 AM FLIGHT OPERATION COORDINATOR - 09/23/2024 11:59 PM FLIGHT OPERATION COORDINATOR Hospital Encounter [facility] [address] [place] [address] Yolanda Bolaños FNP-BC Discharge Disposition: Home or Self Care (Routine Discharge) 09/23/2024 Travel from Last 3 Months Family History Medical History Relation Comments Cancer Father Prostate cancer Hypertension Father Arthritis Mother Cancer Mother Colon cancer Hypertension Mother Relation Status Comments Father Mother Alive Social History Tobacco Use Types Packs/Day Years Used Date Smoking Tobacco: Every Day Cigarettes 1 30 Smokeless Tobacco: Never Tobacco Cessation:Ready to Q uit: Not Asked; Counseling Given: Not Answered Alcohol Use Standard Drinks/Week Comments Never 0 (1 standard drink = 0.6 oz pur e alcohol) Comments Unknown Sex and Gender Information Value Date Recorded Sex Assigned at Not on file Legal Sex Female 5:31 PM CDT Gender Identity Not on file Sexual Orientation Not on file Last Filed Vital Signs Vital Sign Reading Time Taken Comments Blood Pressure - - Pulse - - Temperature - - Respiratory Rate - - Oxygen Saturation - - Inhaled Oxygen Concentration - - Weight 72.6 kg (160 lb) 11/17/2024 3:16 PM FLIGHT OPERATION COORDINATOR Height 165.1 cm (5' 5 ) 11/17/2024 3:16 PM FLIGHT OPERATION COORDINATOR Body Mass Index 26.63 11/17/2024 3:16 PM FLIGHT OPERATION COORDINATOR Plan of Treatment Upcoming Encounters Date Type Department Care Team (Late st Contact Info) Description 12/29/2024 8:30 AM FLIGHT OPERATION COORDINATOR Office Visit [facility] [address] [place] [address] Ronen Osborn Jr., DO [address] [place] [address] Health Maintenance Due Date Last Done Comments Cervical Cancer Screening Pa p Smear (Age 30 to 64) Every 3 Years 1975 Colorectal Cancer Screening Colonoscopy (10 Years) 1975 Annual Physical 1978 Hepatitis B Vaccines (1 of 3 - 19+ 3-dose series) 1994 Cervical Cancer Screening Pa p with HPV Testing (Age 30 to 64) Every 5 Years 2005 Cervical Cancer Screening wi th HPV 2005 Mammogram Screening 2015 COVID-19 Vaccine (2023-2 5 season) 2024 10/05/2021, 02/07/2021, 01/10/2021 Influenza Adult (#1) 2024 DTaP, Tdap and Td Vaccines ( 2 - Td or Tdap) 09/07/2031 09/07/2021 Pneumococcal Vaccine: Pediatrics (0 to 5 Years) and At-Risk Patients (6 to 64 Years) Completed 10/01/2023 Hepatitis C Completed 06/24/2024, 06/24/2024, 07/02/2023 Meningococcal B Vaccine Aged Out No l onger eligible based on patient's age to complete this topic Meningococcal Vaccine Aged Out No rosemarie brigette eligible based on patient's age to complete this topic RSV Immunizations Under 20 Months Aged Out No longer eligible b ased on patient's age to complete this topic Procedures Procedure Name Priority Date/Time Associated Diagnosis Comments XR HIP INJ/ASP LT Routine 10/16/2024 10: 41 AM FLIGHT OPERATION COORDINATOR Tear of left acetabular labrum, subsequent encounter MRI ARTHRO HIP LT Routine 09/23/2024 10: 26 AM FLIGHT OPERATION COORDINATOR Left hip pain Tear of left acetabular labrum, initial encounter XR ARTHRO HIP LT MRI Routine 09/23/2024 9:45 AM FLIGHT OPERATION COORDINATOR Left hip pain Tear of left acetabular labrum, initial encounter from Last 3 Months Results * XR HIP INJ/ASP LT (10/16/2024 10:41 AM FLIGHT OPERATION COORDINATOR) Anatomical Region Laterality Modality Hip Radiographic Jessenia ging, Radiographic Imaging 10/16/2024 10:4 1 AM FLIGHT OPERATION COORDINATOR Impressions 10/16/2024 10:42 AM FLIGHT OPERATION COORDINATOR IMPRESSION: Uneventful therapeutic left hip arthrogram as described. Ordered By: YOLANDA BOLAÑOS Interpreted By: Hieu Oh MD, 10/16/2024 10:41 AM Narrative 10/16/2024 10:42 AM FLIGHT OPERATION COORDINATOR [address] [place] [address] Examination: ??Therapeutic left hip arthrogram. Exam time: 1037 hours. Clinical history: Pain. Therapeutic trial. Comparison: 09/23/2024. Technique: Fluoroscopic monitoring with spot imaging. 0.3 minutes of fluoroscopy time was utilized. Two digital spot and/or digital radiographs were obtained. Findings: Prior imaging was reviewed. ??Appropriate consent and timeout procedures were accomplished. An approach for puncture of the left hip joint was selected and localized fluoroscopically. Following sterile prep and local anesthesia with 1% Xylocaine, the joint was successfully punctured without incident under fluoroscopic guidance utilizing a 20-gauge spinal needle. Following confirmation of intra-articular needle placement via injection of a small volume of radiographic contrast, a mixture of 4 mL of 1% Xylocaine with epinephrine and 80 mg of Depo- Medrol (5 mL total) was subsequently instilled into the joint without incident. The needle was withdrawn and the puncture site cleaned and dressed with a Band-Aid. There were no immediate complications from the procedure. The patient tolerated the procedure well. ??The patient reported significant improvement in her symptoms immediately following the procedure. Procedure Note Hieu Oh MD - 10/16/[address] [place] [address] Examination: Therapeutic left hip arthrogram. Exam time: 1037 hours. Clinical history: Pain. Therapeutic trial. Comparison: 09/23/2024. Technique: Fluoroscopic monitoring with spot imaging. 0.3 minutes offluoroscopy time was utilized. Two digital spot and/or digital radiographswere obtained. Findings: Prior imaging was reviewed. Appropriate consent and timeoutprocedures were accomplished. An approach for puncture of the left hipjoint was selected and localized fluoroscopically. Following sterile prepand local anesthesia with 1% Xylocaine, the joint was successfullypunctured without incident under fluoroscopic guidance utilizing [id number] spinal needle. Following confirmation of intra- articular needleplacement via injection of a small volume of radiographic contrast, amixture of 4 mL of 1% Xylocaine with epinephrine and 80 mg of Depo-Medrol(5 mL total) was subsequently instilled into the joint without incident.The needle was withdrawn and the puncture site cleaned and dressed with aBand-Aid. There were no immediate complications from the procedure. Thepatient tolerated the procedure well. The patient reported significantimprovement in her symptoms immediately following the procedure. IMPRESSION: Uneventful therapeutic left hip arthrogram as described. Ordered By: YOLANDA BOLAÑOS Interpreted By: Hieu Oh MD, 10/16/2024 10:41 AM us Yolanda Bolaños [employer]PENTERS SUPERVISOR-BC FLUOROSCOPY Final Resu lt * MRI ARTHRO HIP LT (09/23/2024 10:26 AM FLIGHT OPERATION COORDINATOR) Anatomical Region Laterality Modality Hip Magnetic Resonan ce 09/25/2024 1:52 PM FLIGHT OPERATION COORDINATOR Impressions 09/25/2024 2:02 PM FLIGHT OPERATION COORDINATOR IMPRESSION: 1. Small anterior superior labral tear. 2. Mild osteoarthritic changes of left hip predominantly mild cartilaginous thinning and fissuring. Ordered By: YOLANDA BOLAÑOS Interpreted By: Vernon Soliman MD, 09/25/2024 1:52 PM Narrative 09/25/2024 2:02 PM FLIGHT OPERATION COORDINATOR [address] [place] [address] EXAMINATION: MRI arthrogram of the left hip INDICATION: Concern for labral tear. [Pain. COMPARISON: Left hip radiograph on 08/13/2024 TECHNIQUE: Multiplanar, multisequence MR imaging was performed without intravenous contrast, according to routine protocol without complication. FINDINGS: * ??Joints: The left hip joint is distended with contrast material without evidence of synovitis or discrete intra-articular body. There are mild osteoarthritic changes of the left hip. The utilized portions of the SI joints show minimal degenerative changes. The pubic symphysis is unremarkable. * ??Labrum: There is a small focus of anterior superior labral tearing. * ??Cartilage: There is cartilaginous thinning and fissuring without a measurable cartilage defect. * ??Tendons: The rectus femoris, iliopsoas, gluteal, hamstring tendons are within normal limits. * ??Marrow: No osteonecrosis, bone marrow edema, or fracture. * ??Miscellaneous: No abnormal bursa or in no visualized inguinal or external iliac chain lymphadenopathy. Procedure Note Vernon Soliman MD - 09/25/[address] [place] [address] EXAMINATION: MRI arthrogram of the left hip INDICATION: Concern for labral tear. [Pain. COMPARISON: Left hip radiograph on 08/13/2024 TECHNIQUE: Multiplanar, multisequence MR imaging was performed withoutintravenous contrast, according to routine protocol withoutcomplication. FINDINGS: * Joints: The left hip joint is distended with contrast material withoutevidence of synovitis or discrete intra-articular body. There are mildosteoarthritic changes of the left hip. The utilized portions of the SIjoints show minimal degenerative changes. The pubic symphysis isunremarkable. * Labrum: There is a small focus of anterior superior labral tearing. * Cartilage: There is cartilaginous thinning and fissuring without ameasurable cartilage defect. * Tendons: The rectus femoris, iliopsoas, gluteal, hamstring tendons arewithin normal limits. * Marrow: No osteonecrosis, bone marrow edema, or fracture. * Miscellaneous: No abnormal bursa or in no visualized inguinal orexternal iliac chain lymphadenopathy. IMPRESSION: 1. Small anterior superior labral tear. 2. Mild osteoarthritic changes of left hip predominantly mildcartilaginous thinning and fissuring. Ordered By: YOLANDA BOLAÑOS Interpreted By: Vernon Soliman MD, 09/25/2024 1:52 PM Yolanda Bolaños [employer] SUPERVISOR-BC MRI Final Resu lt * XR ARTHRO HIP LT MRI (09/23/2024 9:45 AM FLIGHT OPERATION COORDINATOR) Anatomical Region Laterality Modality Hip Radiographic Jessenia ging, Radiographic Imaging 09/23/2024 9:58 AM FLIGHT OPERATION COORDINATOR Impressions 09/23/2024 10:00 AM FLIGHT OPERATION COORDINATOR IMPRESSION: Uneventful left hip arthrogram for MR arthrography as described. Ordered By: YOLANDA BOLAÑOS Interpreted By: Hieu Oh MD, 09/23/2024 9:58 AM Narrative 09/23/2024 10:00 AM FLIGHT OPERATION COORDINATOR [address] [place] [address] Examination: Left hip arthrogram. Exam time: 0943 hours. Clinical history: Pain. Preparation for MR arthrography. Comparison: Pelvis and left hip radiographs, 08/13/2024. Technique: Fluoroscopic monitoring with spot imaging. 0.3 minutes of fluoroscopy time was utilized. Two digital spot and/or digital radiographs were obtained. Findings: Prior imaging was reviewed. Appropriate consent and timeout procedures were accomplished. An approach for puncture of the left hip joint was selected and localized fluoroscopically. Following sterile prep and local anesthesia with 1% Xylocaine, the joint was successfully punctured without incident under fluoroscopic guidance utilizing a 20-gauge spinal needle. Following confirmation of intra-articular needle placement via injection of a small volume of radiographic contrast, approximately 10 mL of a gadolinium/saline solution was subsequently instilled into the joint without incident in preparation for MR arthrography. The needle was withdrawn and the puncture site cleaned and dressed with a Band-Aid. There were no immediate complications from the procedure. The patient tolerated the procedure well. Procedure Note Hieu Oh MD - 09/23/[address] [place] [address] Examination: Left hip arthrogram. Exam time: 0943 hours. Clinical history: Pain. Preparation for MR arthrography. Comparison: Pelvis and left hip radiographs, 08/13/2024. Technique: Fluoroscopic monitoring with spot imaging. 0.3 minutes offluoroscopy time was utilized. Two digital spot and/or digital radiographswere obtained. Findings: Prior imaging was reviewed. Appropriate consent and timeoutprocedures were accomplished. An approach for puncture of the left hipjoint was selected and localized fluoroscopically. Following sterile prepand local anesthesia with 1% Xylocaine, the joint was successfullypunctured without incident under fluoroscopic guidance utilizing [id number] spinal needle. Following confirmation of intra- articular needleplacement via injection of a small volume of radiographic contrast,approximately 10 mL of a gadolinium/saline solution was subsequentlyinstilled into the joint without incident in preparation for MRarthrography. The needle was withdrawn and the puncture site cleaned anddressed with a Band-Aid. There were no immediate complications from theprocedure. The patient tolerated the procedure well. IMPRESSION: Uneventful left hip arthrogram for MR arthrography as described. Ordered By: YOLANDA M EVER Interpreted By: Hieu Oh MD, 09/23/2024 9:58 AM Yolanda Bolaños [employer] SUPERVISOR-BC FLUOROSCOPY Final Resu lt from Last 3 Months Insurance AETNA AET[employer] Care Teams Line Driver Relationship Specialty Start Date End Date Edu Laguna MD [address] [place] [address] PCP - General INTERNAL MEDICINE 11/12/23
== END 2024-12-08 11:44 | disposition home or self-care (01) ==
LOC: CHSIMG 11:45
PROVIDERS: PCP Internal Medicine; Visit Provider Internal Medicine
DX: M54.50 Low back pain, unspecified (principal); M54.16 Radiculopathy, lumbar region; M51.369 Other intervertebral disc degeneration, lumbar region without mention of lumbar back pain or lower extremity pain; M43.06 Spondylolysis, lumbar region
CPT/HCPCS: 72100

== ENCOUNTER 2024-12-25 10:26 | Outpatient (CLI) | payer OTHER, SELFPAY ==
--- NOTE | ~2024-12-25 | MR_ITS ---
MRI of the lumbar spine Clinical History: Left L5 radiculopathy Technique: Axial T2-weighted images, and sagittal T1-weighted, T2-weighted, and T2 fat-sat images wer e acquired. Findings: No fracture seen. There is 3 mm retrolisthesis of L2 over L3. No suspicious bone marrow sig nal abnormality seen. At L1-L2, there is moderate degenerative disc narrowing. No disc bulge or herniation. There is minima l facet arthropathy. No central canal stenosis or neural foraminal narrowing. At L2-L3, there is moderate to advanced degenerative disc narrowing. There is minimal disc bulge with mild facet arthropathy. No central canal stenosis or neural foraminal narrowing. At L3-L4, there is minimal disc bulge with moderate facet arthropathy. No central canal stenosis or n eural foraminal narrowing. At L4-L5, there is no significant disc bulge or herniation. There is moderate facet arthropathy. No c entral canal stenosis or neural foraminal narrowing. At L5-S1, there is minimal disc bulge with moderate facet arthropathy. No central canal stenosis or d istinct neural foraminal narrowing. Paravertebral soft tissues are unremarkable. Impression: Mild degenerative spondylosis, as above. 3 mm retrolisthesis of L2 over L3. Reviewed, dictated and finalized at location . [employer] Impression: Mild degenerative spondylosis, as above. 3 mm retrolisthesis of L2 over L3.
--- OUTSIDE RECORDS SUMMARY | 2024-12-25 10:52 | XMS_ITS | Encounter Summary ---
Author Organization [facility] Address [facility] [place] [address] Care Team Providers Care Director Day Care Center Name Role Phone Edu Laguna MD Primary Care Provider [phone] Encounter Details Date Type Department Care Team (Late st Contact Info) Description 11/30/2023 MyChart Message Enc [address] [address] Clover Bolaños, [facility] [address] [place] [address] Visit Follow Up Social History Tobacco Use [...] st Contact Info) Description 12/29/2024 8:[address] Office Visit [address] [place] [address] Ronen Osborn Jr., DO [address] [place] [address] documented as of this encounter Visit Diagnoses Not on filedocumented in this encounter Care Teams Director Day Care Center Relationship Specialty Start Date End Date Edu Laguna MD [address] [place] [address] PCP - General INTERNAL MEDICINE 11/12/23 documented as of this encounter
--- OUTSIDE RECORDS SUMMARY | 2024-12-25 10:52 | XMS_ITS | Referral Summary ---
Author Organization [place] [id number] [facility] Address [address] [place] [address] Care Team Providers Care Kitman Name Role Phone Edu Laguna MD Primary Care Provider [phone] Encounters Date Type Department Care Team Description 10/28/2024 Telephone [facility] [address] [facility] [address] [place] [address] Libby Lazo [facility] 10/21/2024 11:00 AM STUDIO RECEPTIONIST Office Visit [facility] [address] [place] [address] [address] [place] [address] Sherita Tripp MD Rheumatoid arthritis involving multiple sites with positive rheumatoid factor (CMS/HCC) (HCC) (Primary Dx); Need for influenza vaccination; High risk medication use; Cigarette nicotine dependence with nicotine-induced disorder from Last 3 Months Allergies Active Allergy [...] by mouth 2 (two) times a day 12/17/2023 Active folic acid (FOLVITE) 1 mg tabletIndication s:Rheumatoid arthritis, involving unspecified site, unspecified whether rheumatoid factor present (HCC),High risk medication use Take 1 tablet (1 mg total) by mouth daily 90 tablet 3 08/26/2024 08/26/20 25 Active hydroxychloroqui ne (PLAQUENIL) 200 mg tabletIndication s:Rheumatoid Arthritis Take 1 tablet (200 mg total) by mouth 2 (two) times a day 180 tablet 2 08/26/2024 08/26/20 25 Active adalimumab (Humira,CF, Pen) 40 mg/0.4 mL pen injector kit Inject 0.4 mL (40 mg total) under the skin every 14 (fourteen) days 2 each 5 10/22/2024 04/08/20 25 Active methotrexate 2.5 mg tabletIndication s:autoimmune disease Take 8 tablets (20 mg total) by mouth every 7 days 32 tablet 12/25/2024 01/25/20 25 Active Active Problems Problem Noted Date Diagnosed Date Nicotine dependence 07/02/2023 Rheumatoid arthritis 07/02/2023 Immunizations Immunization Administration Dates Next Due Influenza, Quadrivalent, Hig [...] week 01/23/2024 How often do you attend voodoo or spiritism serv ices? Never 01/23/2024 Do you belong to any clubs o r organizations such as voodoo groups, unions, fraternal or athletic groups, or [...] Recorded Patient Health Questionnaire-2 Score 0 01/23/2024 [facility] of Occupat ional Health - Occupational Stress Questionnaire Answer Date Recorded [...] place to sleep or slept in a fdc (including now)? No 01/23/2024 Comments Unknown Sex and Gender Information Value Date Recorded Sex Assigned at Not on file Legal Sex Female 3:24 PM CDT Gender Identity Not on file Sexual Orientation Not on file Last Filed Vital Signs Vital Sign Reading Time Taken Comments Blood Pressure 158/89 10/21/2024 10:34 AM STUDIO RECEPTIONIST Pulse 59 10/21/2024 10:34 AM STUDIO RECEPTIONIST Temperature 36.3 C (97.4 F) 10/21/2024 10:34 AM STUDIO RECEPTIONIST Respiratory Rate - - Oxygen Saturation 98% 10/21/2024 10:34 AM STUDIO RECEPTIONIST Inhaled Oxygen Concentration - - Weight 67.6 kg (149 lb) 10/21/2024 10:34 AM STUDIO RECEPTIONIST Height 165.1 cm (5' 5 ) 10/21/2024 10:34 AM STUDIO RECEPTIONIST Body Mass Index 24.79 10/21/2024 10:34 AM STUDIO RECEPTIONIST Plan of Treatment Not on file Procedures Procedure Name Priority Date/Time Associated Diagnosis Comments HEPATITIS C ANTIBODY Routine 06/24/2024 11:43 AM CDT Rheumatoid arthritis involving multiple sites with positive rheumatoid factor (CMS/HCC) (HCC) High risk medication use from Last 3 Months or Most Recently Relevant to Health Maintenance Results * Hepatitis C antibody Blood (06/24/2024 11:43 AM CDT) Hep C Ab Nonreactive Nonreactive Comment: Interpretive Data Nonreactive: Antibodies to HCV not detected. Does NOT exclude the possibility of recent exposure to HCV. Equivocal: Equivocal for HCV antibodies. Supplemental molecular testing will be automatically performed to determine infection status in accordance with current CDC screening recommendations. Reactive: Positive for HCV antibodies. This may represent current or past HCV infection. Supplemental molecular testing will be automatically performed to determine current infection status in accordance with current CDC screening recommendations. Interpretive data was last revised on 2020. Blood 06/24/2024 11:4 3 AM CDT 06/24/2024 2:30 PM CDT us Sherita Tripp MD LAB MICROBIOLOGY - GEN ERAL ORDERABLES Final Result [address]EN [id number] Department [place] [address] from Last 3 Months or Most Recently Relevant to Health Maintenance Insurance AETNA BETTER [facility] AETNA BETTER [facility] Care Teams Kitman Relationship Specialty Start Date End Date Edu Laguna MD PCP - General Internal Medicine 02/23/23
--- OUTSIDE RECORDS SUMMARY | 2024-12-25 10:52 | XMS_ITS | Clinical Summary ---
Author Organization [facility] [address] [facility] Address [address] [place] [address] Care Team Providers Care Ticket Puller Name Role Phone Edu Laguna MD Primary Care Provider [phone] Allergies Active Allergy Reactions Criticality Noted Date [...] Department Care Team Description 10/28/2024 Telephone [facility] [address] [facility] [address] [place] [address] Libby Lazo [facility] 10/21/2024 11:00 AM CUSTOMER DATA TECHNICIAN Office Visit [facility] [address] [place] [address] [address] [place] [address] Sherita Tripp MD Rheumatoid arthritis involving multiple sites with positive rheumatoid factor (CMS/HCC) (HCC) (Primary Dx); Need for influenza vaccination; High risk medication use; Cigarette nicotine dependence with nicotine-induced disorder from Last 3 Months Immunizations Immunization Administration Dates Next Due Influenza, [...] week 01/23/2024 How often do you attend hindu or presybeterian serv ices? Never 01/23/2024 Do you belong to any clubs o r organizations such as hindu groups, unions, fraternal or athletic groups, or [...] Recorded Patient Health Questionnaire-2 Score 0 01/23/2024 [facility] [place] of Occupat ional Health - Occupational Stress [...] place to sleep or slept in a skilled nursing (including now)? No 01/23/2024 Comments Unknown Sex and Gender Information Value Date Recorded Sex Assigned at Not on file Legal Sex Female 3:24 PM CDT Gender Identity Not on file Sexual Orientation Not on file Obstetrics History Last Filed Vital Signs Vital Sign Reading Time Taken Comments Blood Pressure 158/89 10/21/2024 10:34 AM CUSTOMER DATA TECHNICIAN Pulse 59 10/21/2024 10:34 AM CUSTOMER DATA TECHNICIAN Temperature 36.3 C (97.4 F) 10/21/2024 10:34 AM CUSTOMER DATA TECHNICIAN Respiratory Rate - - Oxygen Saturation 98% 10/21/2024 10:34 AM CUSTOMER DATA TECHNICIAN Inhaled Oxygen Concentration - - Weight 67.6 kg (149 lb) 10/21/2024 10:34 AM CUSTOMER DATA TECHNICIAN Height 165.1 cm (5' 5 ) 10/21/2024 10:34 AM CUSTOMER DATA TECHNICIAN Body Mass Index 24.79 10/21/2024 10:34 AM CUSTOMER DATA TECHNICIAN Plan of Treatment Health Maintenance Due Date [...] - GEN ERAL ORDERABLES Final Result HELEN [id number] Department of Laboratories [place], [place] [id number] from Last 3 Months or Most Recently Relevant to Health Maintenance Insurance [facility] Care Teams Ticket Puller Relationship Specialty Start Date End Date Edu Laguna MD PCP - General Internal Medicine 02/23/23
--- OUTSIDE RECORDS SUMMARY | 2024-12-25 10:52 | XMS_ITS | Clinical Summary ---
Author Organization [facility] Address [address] [place] [address] Care Team Providers Care Liquid Hydrogen Plant Operator Name Role Phone Edu Laguna MD Primary Care Provider [phone] Allergies Active Allergy Reactions Criticality Noted Date [...] CC HHS/HCC) 07/02/2023 08/01/2024 Overview (08/13/2024): Sees Caramel Cutter Helper Sherita Tripp MD at [facility] in [place], [place] Nicotine dependence 07/02/2023 Encounters Date Type Department Care Team Description 11/18/[address] [address] Ronen Osborn Jr., DO Question 11/17/2024 3:15 PM SIGN BUILDER Office Visit [address] [address] Ronen Osborn Jr., DO Hip Pain (LEFT) 11/17/2024 Travel 10/16/2024 9:50 AM SIGN BUILDER - 10/16/2024 11:59 PM [facility] Hospital Encounter [facility] [address] [facility] [place] [address] Yolanda Bolaños, WATER GAS OPERATOR-BC Discharge Disposition: Home or Self Care (Routine Discharge) 10/16/2024 Travel 09/30/2024 10:00 AM SIGN BUILDER Office Visit [address] [address] Yolanda Bolaños, WATER GAS OPERATOR-BC MRI Results (LEFT hip) 09/30/2024 Travel from Last 3 Months Family History [...] 72.6 kg (160 lb) 11/17/2024 3:16 PM SIGN BUILDER Height 165.1 cm (5' 5 ) 11/17/2024 3:16 PM SIGN BUILDER Body Mass Index 26.63 11/17/2024 3:16 PM SIGN BUILDER Plan of Treatment Upcoming Encounters Date Type Department Care Team (Late st Contact Info) Description 12/29/2024 8:30 AM SIGN BUILDER Office Visit [address], [facility] [place] [address] Ronen Osborn Jr., DO [address] [place] [address] Health Maintenance Due Date Last [...] INJ/ASP LT Routine 10/16/2024 10: 41 AM SIGN BUILDER Tear of left acetabular labrum, subsequent encounter from Last 3 Months Results * XR HIP INJ/ASP LT (10/16/2024 10:41 AM SIGN BUILDER) Anatomical Region Laterality Modality Hip Radiographic Jessenia ging, Radiographic Imaging 10/16/2024 10:4 1 AM SIGN BUILDER Impressions 10/16/2024 10:42 AM SIGN BUILDER IMPRESSION: Uneventful therapeutic left hip arthrogram as described. Ordered By: YOLANDA BOLAÑOS Interpreted By: Hieu Oh MD, 10/16/2024 10:41 AM Narrative 10/16/2024 10:42 AM SIGN BUILDER [address] [place] [address] Examination: Therapeutic left hip arthrogram. Exam time: [...] Xylocaine with epinephrine and 80 mg of Depo-Medrol (5 mL total) was subsequently instilled into the joint without incident. The needle was withdrawn and the puncture site cleaned and dressed with a Band-Aid. There were no immediate complications from the procedure. The patient tolerated the procedure well. The patient reported significant improvement in her symptoms immediately following the procedure. Procedure Note Hieu Oh MD - 10/16/2024 [facility] [address] [facility] [place] [address] Examination: Therapeutic left hip arthrogram. Exam time: [...] successfullypunctured without incident under fluoroscopic guidance utilizing p23-pyydy spinal needle. Following confirmation of intra- articular [...] By: Hieu Oh MD, 10/16/2024 10:41 AM Yolanda Bolaños WATER GAS OPERATOR-BC FLUOROSCOPY Final Resu lt from Last 3 Months Insurance AETNA AETNA Care Teams Liquid Hydrogen Plant Operator Relationship Specialty Start Date End Date Edu Laguna MD [address] [place] [address] PCP - General INTERNAL MEDICINE 11/12/23
== END 2024-12-25 10:27 | disposition home or self-care (01) ==
LOC: CHSIMG 10:28
PROVIDERS: PCP Internal Medicine; Visit Provider Internal Medicine
DX: M54.16 Radiculopathy, lumbar region (principal); M43.06 Spondylolysis, lumbar region
CPT/HCPCS: 72148

== ENCOUNTER 2024-12-26 09:56 | Outpatient (CLI) | payer OTHER, SELFPAY ==
[2024-12-26 10:09] LABS: Add Urine Microscopic? YES; Appearance Urine Clear (Clear); Basophils Absolute Auto 0.03 K/mm3 (0.00-0.10); Basophils Percent Auto 0.3 % (0.0-1.0); Bilirubin Urine Negative (Negative); Blood Urine Negative (Negative); Color Urine Light Yellow (Yellow); Eosinophils Absolute Auto 0.05 K/mm3 (0.02-0.50); Eosinophils Percent Auto 0.5 % (1.0-6.0); Glucose Urine UA Negative (Negative); Hematocrit 46.8 % (35.0-49.0); Hemoglobin 15.3 g/dL (12.0-15.0); Immature Granulocyte Absolute 0.03 K/mm3 (0.00-0.00); Immature Granulocyte Percent A 0.3 % (0.0-0.0); Ketones Urine Negative (Negative); Leukocyte Esterase Ur 1+ (Negative); Lymphocytes Absolute Auto 1.61 K/mm3 (1.10-4.50); Lymphocytes Percent Auto 14.8 % (18.0-42.0); Mean Corpuscular HGB Conc 32.7 g/dL (32-36); Mean Corpuscular Hemoglobin 30.8 pg (27.0-31.0); Mean Corpuscular Volume 94.4 fL (78.0-102.0); Mean Platelet Volume 9.8 fl (9.2-11.8); Monocytes Absolute Auto 0.61 K/mm3 (0.10-0.90); Monocytes Percent Auto 5.6 % (2.0-11.0); Neutrophils Absolute Auto 8.58 K/mm3 (1.70-7.20); Neutrophils Percent Auto 78.5 % (50.0-70.0); Nitrate Urine Negative (Negative); Platelet Count Result 267 K/mm3 (150-420); Protein Urine Negative (Negative); Red Blood Count 4.96 M/mm3 (4.20-5.40); Red Cell Distribution Width 14.7 % (11.6-14.4); Urobilinogen Urine 0.2 mg/dL (0.2-1.0); White Blood Count 10.9 K/mm3 (4.8-10.8); pH Urine 5.5 (5.0-8.0)
[2024-12-26 10:18] LABS: Bacteria Urine Trace /hpf; RBC Urine None seen /hpf (0-2); Squamous Epithelial Cell Urine Few /hpf (Few); WBC Urine 0-3 /hpf (0-3)
--- OUTSIDE RECORDS SUMMARY | 2024-12-26 10:32 | XMS_ITS | Encounter Summary ---
Author Organization [facility] Address [facility] [place] [address] Care Team Providers Care Pharmacy Informaticist Name Role Phone Edu Laguna MD Primary Care Provider [phone] Encounter Details Date Type Department Care Team (Late st Contact Info) Description 11/30/2023 MyChart Message Enc [address] [address] Clover Bolaños, [facility] [address] [facility] [place] [address] Visit Follow Up Social History Tobacco Use [...] st Contact Info) Description 12/29/2024 8:30 AM LOCK AND DAM EQUIPMENT REPAIRER Office Visit [address] [place] [address] Ronen Osborn Jr., DO [address] [place] [address] documented as of this encounter Visit Diagnoses Not on filedocumented in this encounter Care Teams Pharmacy Informaticist Relationship Specialty Start Date End Date Edu Laguna MD [address] [place] [address] PCP - General INTERNAL MEDICINE 11/12/23 documented as of this encounter
--- OUTSIDE RECORDS SUMMARY | 2024-12-26 10:32 | XMS_ITS | Referral Summary ---
Author Organization [place] [address] [facility] Address [address] [place] [address] Care Team Providers Care Roll Threader Operator Name Role Phone Edu Laguna MD Primary Care Provider [phone] Encounters Date Type Department Care Team Description 10/28/2024 Telephone [facility] [address] [facility] [address] [place] [address] Libby Lazo [facility] 10/21/2024 11:00 AM REGIONAL EHS MANAGER Office Visit [facility] [address] [place] [address] [address] [place] [address] Sherita Tripp MD Rheumatoid arthritis [...] week 01/23/2024 How often do you attend caodaism or mandaen serv ices? Never 01/23/2024 Do you belong to any clubs o r organizations such as caodaism groups, unions, fraternal or athletic groups, or [...] Recorded Patient Health Questionnaire-2 Score 0 01/23/2024 [facility] [place] of Occupat ional Health - Occupational Stress [...] place to sleep or slept in a prison (including now)? No 01/23/2024 Comments Unknown Sex and Gender Information Value Date Recorded Sex Assigned at Not on file Legal Sex Female 3:24 PM CDT Gender Identity Not on file Sexual Orientation Not on file Last Filed Vital Signs Vital Sign Reading Time Taken Comments Blood Pressure 158/89 10/21/2024 10:34 AM REGIONAL EHS MANAGER Pulse 59 10/21/2024 10:34 AM REGIONAL EHS MANAGER Temperature 36.3 C (97.4 F) 10/21/2024 10:34 AM REGIONAL EHS MANAGER Respiratory Rate - - Oxygen Saturation 98% 10/21/2024 10:34 AM REGIONAL EHS MANAGER Inhaled Oxygen Concentration - - Weight 67.6 kg (149 lb) 10/21/2024 10:34 AM REGIONAL EHS MANAGER Height 165.1 cm (5' 5 ) 10/21/2024 10:34 AM REGIONAL EHS MANAGER Body Mass Index 24.79 10/21/2024 10:34 AM REGIONAL EHS MANAGER Plan of Treatment Not on file Procedures [...] - GEN ERAL ORDERABLES Final Result HELEN [id number] [address] Department [place] [address] from Last 3 Months or Most Recently Relevant to Health Maintenance Insurance AETNA [facility]TER [facility] AETNA BETTER [facility] Care Teams Roll Threader Operator Relationship Specialty Start Date End Date Edu Laguna MD PCP - General Internal Medicine 02/23/23
--- OUTSIDE RECORDS SUMMARY | 2024-12-26 10:32 | XMS_ITS | Clinical Summary ---
Author Organization [facility] [address] [facility] Address [address] [place] [address] Care Team Providers Care Medical Staff Assistant Name Role Phone Edu Laguna MD Primary Care Provider [phone] Allergies Active Allergy Reactions Criticality Noted Date [...] Department Care Team Description 10/28/2024 Telephone [facility] [address] [facility] [address] [place] [address] Libby Lazo [facility] 10/21/2024 11:00 AM NET DEVELOPER Office Visit [facility] [address] [place] [address] [address] [place] [address] Sherita Tripp MD Rheumatoid arthritis involving multiple [...] week 01/23/2024 How often do you attend anglican or lutheran serv ices? Never 01/23/2024 Do you belong to any clubs o r organizations such as anglican groups, unions, fraternal or athletic groups, or [...] Recorded Patient Health Questionnaire-2 Score 0 01/23/2024 [facility] [place] of Occupat ional Health - Occupational Stress [...] place to sleep or slept in a intermediate (including now)? No 01/23/2024 Comments Unknown Sex and Gender Information Value Date Recorded Sex Assigned at Not on file Legal Sex Female 3:24 PM CDT Gender Identity Not on file Sexual Orientation Not on file Obstetrics History Last Filed Vital Signs Vital Sign Reading Time Taken Comments Blood Pressure 158/89 10/21/2024 10:34 AM NET DEVELOPER Pulse 59 10/21/2024 10:34 AM NET DEVELOPER Temperature 36.3 C (97.4 F) 10/21/2024 10:34 AM NET DEVELOPER Respiratory Rate - - Oxygen Saturation 98% 10/21/2024 10:34 AM NET DEVELOPER Inhaled Oxygen Concentration - - Weight 67.6 kg (149 lb) 10/21/2024 10:34 AM NET DEVELOPER Height 165.1 cm (5' 5 ) 10/21/2024 10:34 AM NET DEVELOPER Body Mass Index 24.79 10/21/2024 10:34 AM NET DEVELOPER Plan of Treatment Health Maintenance Due Date [...] - GEN ERAL ORDERABLES Final Result HELEN [id number] [address] Department of Laboratories [place], [place] [id number] from Last 3 Months or Most Recently Relevant to Health Maintenance Insurance [facility] Care Teams Medical Staff Assistant Relationship Specialty Start Date End Date Edu Laguna MD PCP - General Internal Medicine 02/23/23
--- OUTSIDE RECORDS SUMMARY | 2024-12-26 10:32 | XMS_ITS | Clinical Summary ---
Author Organization [facility] Address [address] [place] [address] Care Team Providers Care Dice Maker Name Role Phone Edu Laguna MD Primary Care Provider [phone] Allergies Active Allergy Reactions Criticality Noted Date [...] CC HHS/HCC) 07/02/2023 08/01/2024 Overview (08/13/2024): Sees Post Hole Digging Machine Operator Sherita Tripp MD at [facility] Rheumatology in [place], [place] Nicotine dependence 07/02/2023 Encounters Date Type Department Care Team Description 11/18/[address] [address] Ronen Osborn Jr., DO Question 11/17/2024 3:15 PM GROUP FITNESS INSTRUCTOR Office Visit [address] [address] Ronen Osborn Jr., DO Hip Pain (LEFT) 11/17/2024 Travel 10/16/2024 9:50 AM GROUP FITNESS INSTRUCTOR - 10/16/2024 11:59 PM [facility] Hospital Encounter [facility] [address] [place] [address] Yolanda Bolaños, POTATO PANCAKE FRIER-BC Discharge Disposition: Home or Self Care (Routine Discharge) 10/16/2024 Travel 09/30/2024 10:00 AM GROUP FITNESS INSTRUCTOR Office Visit [address] [address] Yolanda Bolaños, POTATO PANCAKE FRIER-BC MRI Results (LEFT hip) 09/30/2024 Travel from [...] 72.6 kg (160 lb) 11/17/2024 3:16 PM GROUP FITNESS INSTRUCTOR Height 165.1 cm (5' 5 ) 11/17/2024 3:16 PM GROUP FITNESS INSTRUCTOR Body Mass Index 26.63 11/17/2024 3:16 PM GROUP FITNESS INSTRUCTOR Plan of Treatment Upcoming Encounters Date Type Department Care Team (Late st Contact Info) Description 12/29/2024 8:30 AM GROUP FITNESS INSTRUCTOR Office Visit [address], [facility] [address] [place] [address] Ronen Osborn Jr., DO [address] [place] [address] Health Maintenance Due Date Last [...] INJ/ASP LT Routine 10/16/2024 10: 41 AM GROUP FITNESS INSTRUCTOR Tear of left acetabular labrum, subsequent encounter from Last 3 Months Results * XR HIP INJ/ASP LT (10/16/2024 10:41 AM GROUP FITNESS INSTRUCTOR) Anatomical Region Laterality Modality Hip Radiographic Jessenia ging, Radiographic Imaging 10/16/2024 10:4 1 AM GROUP FITNESS INSTRUCTOR Impressions 10/16/2024 10:42 AM GROUP FITNESS INSTRUCTOR IMPRESSION: Uneventful therapeutic left hip arthrogram as described. Ordered By: YOLANDA BOLAÑOS Interpreted By: Hieu Oh MD, 10/16/2024 10:41 AM Narrative 10/16/2024 10:42 AM GROUP FITNESS INSTRUCTOR [address] [place] [address] Examination: Therapeutic left hip arthrogram. Exam time: [...] Procedure Note Hieu Oh MD - 10/16/2024 [facility] [address] [facility] [address] Examination: Therapeutic left hip arthrogram. Exam time: [...] successfullypunctured without incident under fluoroscopic guidance utilizing g10-ityon spinal needle. Following confirmation of intra- articular [...] Oh MD, 10/16/2024 10:41 AM Yolanda Bolaños POTATO PANCAKE FRIER-BC FLUOROSCOPY Final Resu lt from Last 3 Months Insurance AETNA AETNA Care Teams Dice Maker Relationship Specialty Start Date End Date Edu Laguna MD [address] [place] [address] PCP - General INTERNAL MEDICINE 11/12/23
[2024-12-26 10:57] LABS: Alanine Aminotransferase 132 U/L (14-59); Albumin Level 4.1 g/dL (3.4-5.0); Alkaline Phosphatase 110 U/L (46-116); Anion Gap 10 mmol/L (4-12); Aspartate Amino Transferase 38 U/L (15-37); Bilirubin,Total 0.5 mg/dL (0.00-1.00); Blood Urea Nitrogen 11 mg/dL (7-18); Calcium 9.2 mg/dL (8.5-10.1); Carbon Dioxide 30 mmol/L (21-32); Chloride 103 mmol/L (98-108); Cholesterol 234 mg/dL (0-200); Estimated Glomerular Filt Rate > 60; Glucose 82 mg/dL (70-99); HDL Direct 69 mg/dL (40-60); LDL Cholesterol Calculated 146 mg/dL (<130); Osmolality Calculated 294 mOsm/kg (285-295); Potassium 4.3 mmol/L (3.5-5.1); Sodium 143 mmol/L (136-145); Total Protein 7.2 g/dL (6.4-8.2); Triglycerides 97 mg/dL (0-150)
[2024-12-26 11:04] LABS: CRP < 0.5 mg/dL (0.0-0.9)
[2024-12-26 11:14] LABS: Erythrocyte Sedimentation Rate 6 mm/hr (0-15)
[2024-12-29 14:04] LABS: Hepatitis A Antibody IgM NON-REACTIVE (NON-REACTIVE); Hepatitis B Core Antibody NON-REACTIVE (NON-REACTIVE); Hepatitis B Surface Antigen NON-REACTIVE (NON-REACTIVE); Hepatitis C Virus Antibody NON-REACTIVE (NON-REACTIVE)
== END 2024-12-26 09:57 | disposition home or self-care (01) ==
LOC: CHSLAB 09:58
PROVIDERS: PCP Internal Medicine; Visit Provider Internal Medicine
DX: I10 Essential (primary) hypertension (principal); E78.5 Hyperlipidemia, unspecified; M06.9 Rheumatoid arthritis, unspecified; I73.9 Peripheral vascular disease, unspecified; R79.89 Other specified abnormal findings of blood chemistry
CPT/HCPCS: 36415; 80053; 80061; 80074; 81001; 85025; 85652; 86140

== ENCOUNTER 2024-12-30 08:40 | Outpatient (CLI) | payer OTHER, SELFPAY ==
--- NOTE | ~2024-12-30 | US_ITS ---
Limited Abdominal Sonogram: Real-time sonographic imaging of the right upper quadrant was performed. Clinical History: Abnormal liver enzymes Findings: The liver appears mildly echogenic with no evidence of bile duct dilatation. Probable foca l fatty sparing adjacent to the gallbladder fossa. Main portal vein demonstrates normal direction of flow. The gallbladder is well distended, and appears normal with no evidence of gallstone or wall thi ckening. The common bile duct measures 3 mm. The visualized pancreas, aorta, and IVC are unremarkabl e. Impression: Diffuse fatty infiltration of liver with probable fatty sparing adjacent to the gallbladder fossa. Reviewed, dictated and finalized at location . OR STORAGE ADMINISTRATOR Impression: Diffuse fatty infiltration of liver with probable fatty sparing adjacent to the gallbladder fossa.
--- NOTE | ~2024-12-30 | CT_ITS ---
EXAMINATION: CTA abd aorta runoff DATE: 12/30/2024 09:27 INDICATION: Bilateral lower extremity pain. TECHNIQUE: Computed tomographic angiography (CTA) of the abdominal, pelvis, and both lower extremitie s was performed with 150 mL Omnipaque-350 intravenous contrast. Automated exposure control and iterat wilian reconstruction technique were employed. The dose-length product was 900.33 mGy-cm. Volume rendere d 3D-reconstructions of the arteries were created by the technologist on a separate workstation. COMPARISON: None. FINDINGS: ABDOMINAL AORTA AND ITS BRANCHES: Abdominal aorta is normal in caliber. There is no significant stenosis of celiac axis, superior mesen teric artery, inferior mesenteric artery, or the renal arteries. There are 2 right renal arteries and 4 left renal arteries. PELVIC VASCULATURE: There is no significant stenosis of right common iliac artery, right external iliac artery, or right external iliac artery. There is severe stenosis of left common iliac artery. There is no significant stenosis of left external iliac artery or left internal iliac artery. RIGHT LOWER EXTREMITY VASCULATURE: There is no significant stenosis of common femoral artery, profunda femoral artery, superficial femor al artery, popliteal artery, tibioperoneal trunk, anterior tibial artery, posterior tibial artery, or peroneal artery. LEFT LOWER EXTREMITY VASCULATURE: There is no significant stenosis of common femoral artery, profunda femoral artery, superficial femor al artery, popliteal artery, tibioperoneal artery, anterior tibial artery, posterior tibial artery, o r peroneal artery. ADDITIONAL FINDINGS: The visualized portions of the lung bases demonstrate mild atelectasis. A calcified left lung nodule is consistent with old granulomatous disease. No pleural effusion. The heart size is normal. No peric ardial effusion. There is a small sliding hernia. The liver, gallbladder, spleen, pancreas, adrenal g lands, and right kidney are normal. There is a 5 mm cyst in left kidney. There is cortical thinning o f left kidney lower pole. There are no dilated loops of bowel. The appendix is normal. There are no p athologically enlarged lymph nodes. There is no free intraperitoneal fluid. IMPRESSION: 1. 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 Reviewed, dictated and finalized at location A. TING CONTRACT MAN
--- OUTSIDE RECORDS SUMMARY | 2024-12-30 09:01 | XMS_ITS | Clinical Summary ---
Author Organization [facility] [address] [facility] Address [address] [place] [address] Care Team Providers Care Radio Interference Expert Name Role Phone Edu Laguna MD Primary Care Provider [phone] Allergies Active Allergy Reactions Criticality Noted Date [...] Department Care Team Description 10/28/2024 Telephone [facility] [address] [facility] [address] [place] [address] Libby Lazo [facility] 10/21/2024 11:00 AM GRUBBER Office Visit [facility] Rheumat[facility] [address] [place] [address] [address] [place] [address] Sherita Tripp MD Rheumatoid arthritis involving multiple [...] week 01/23/2024 How often do you attend restorationist or hindu serv ices? Never 01/23/2024 Do you belong to any clubs o r organizations such as restorationist groups, unions, fraternal or athletic groups, or [...] Recorded Patient Health Questionnaire-2 Score 0 01/23/2024 [facility] [place] of Occupat ional Health - Occupational Stress [...] place to sleep or slept in a detention (including now)? No 01/23/2024 Comments Unknown Sex and Gender Information Value Date Recorded Sex Assigned at Not on file Legal Sex Female 3:24 PM CDT Gender Identity Not on file Sexual Orientation Not on file Obstetrics History Last Filed Vital Signs Vital Sign Reading Time Taken Comments Blood Pressure 158/89 10/21/2024 10:34 AM GRUBBER Pulse 59 10/21/2024 10:34 AM GRUBBER Temperature 36.3 C (97.4 F) 10/21/2024 10:34 AM GRUBBER Respiratory Rate - - Oxygen Saturation 98% 10/21/2024 10:34 AM GRUBBER Inhaled Oxygen Concentration - - Weight 67.6 kg (149 lb) 10/21/2024 10:34 AM GRUBBER Height 165.1 cm (5' 5 ) 10/21/2024 10:34 AM GRUBBER Body Mass Index 24.79 10/21/2024 10:34 AM GRUBBER Plan of Treatment Health Maintenance Due Date [...] - GEN ERAL ORDERABLES Final Result HELEN [id number] [address] Department of Laboratories [place], [place] [phone] from Last 3 Months or Most Recently Relevant to Health Maintenance Insurance [facility] Care Teams Radio Interference Expert Relationship Specialty Start Date End Date Edu Laguna MD PCP - General Internal Medicine 02/23/23
--- OUTSIDE RECORDS SUMMARY | 2024-12-30 09:01 | XMS_ITS | Encounter Summary ---
Author Organization [facility] Address [facility] [place] [address] Care Team Providers Care Integrated Marketing Intern Name Role Phone Edu Laguna MD Primary Care Provider [phone] Encounter Details Date Type Department Care Team (Latest Contact Info) Description 12/29/2024 Travel Social History Tobacco Use Types Packs/Day Years Used Date Smoking Tobacco: Every Day Cigarettes 1 30 Smokeless Tobacco: Never Alcohol Use Standard Drinks/Week Comments Never 0 (1 standard drink = 0.6 oz pur e alcohol) Comments Unknown Sex and Gender Information Value Date Recorded Sex Assigned at Female 12/29/2024 8:24 AM PATTERN STORAGE CLERK Legal Sex Female 5:31 PM CDT Gender Identity Not on file Sexual Orientation Not on file documented as of this encounter Plan of Treatment Not on file documented as of this encounter Visit Diagnoses Not on filedocumented in this encounter Care Teams Integrated Marketing Intern Relationship Specialty Start Date End Date Edu Laguna MD [address] [place] [address] PCP - General INTERNAL MEDICINE 11/12/23 documented as of this encounter
--- OUTSIDE RECORDS SUMMARY | 2024-12-30 09:01 | XMS_ITS | Encounter Summary ---
Author Organization [facility] Address [facility] [place] [address] Care Team Providers Care Steel Construction Worker Name Role Phone Edu Laguna MD Primary Care Provider [phone] Encounter Details Date Type Department Care Team (Late st Contact Info) Description 11/30/2023 [employer] Message Enc [address] [address] Clover Bolaños, [address] [place] [id number] Visit Follow Up Social History Tobacco Use Types Packs/Day Years Used Date Smoking Tobacco: Every Day Cigarettes 1 30 Smokeless Tobacco: Never Alcohol Use Standard Drinks/Week Comments Never 0 (1 standard drink = 0.6 oz pur e alcohol) Comments Unknown Sex and Gender Information Value Date Recorded Sex Assigned at Female 12/29/2024 8:24 AM FLAT LOCKER Legal Sex Female 5:31 PM CDT Gender Identity Not on file Sexual Orientation Not on file documented as of this encounter Plan of Treatment Not on file documented as of this encounter Visit Diagnoses Not on filedocumented in this encounter Care Teams Steel Construction Worker Relationship Specialty Start Date End Date Edu Laguna MD [address] [place] [address] PCP - General INTERNAL MEDICINE 11/12/23 documented as of this encounter
--- OUTSIDE RECORDS SUMMARY | 2024-12-30 09:01 | XMS_ITS | Encounter Summary ---
Author Organization [facility] Address [facility] [place] [address] Care Team Providers Care Department Director Name Role Phone Edu Laguna MD Primary Care Provider [phone] Reason for Visit * Reason Comments Hip Pain LEFT Encounter Details Date Type Department Care Team (Late st Contact Info) Description 12/29/2024 8:30 AM HIGH SCHOOL FOOTBALL COACH Office Visit [facility] [address] [address] Ronen Osborn Jr., DO [address] [place] [address] Hip Pain (LEFT) Social History Tobacco Use Types Packs/Day Years Used Date Smoking Tobacco: Every Day Cigarettes 1 30 Smokeless Tobacco: Never Alcohol Use Standard Drinks/Week Comments Never 0 (1 standard drink = 0.6 oz pur e alcohol) Comments Unknown Sex and Gender Information Value Date Recorded Sex Assigned at Female 12/29/2024 8:24 AM HIGH SCHOOL FOOTBALL COACH Legal Sex Female 5:31 PM CDT Gender Identity Not on file Sexual Orientation Not on file documented as of this encounter Last Filed Vital Signs Vital Sign Reading Time Taken Comments Blood Pressure - - Pulse - - Temperature - - Respiratory Rate - - Oxygen Saturation - - Inhaled Oxygen Concentration - - Weight 72.6 kg (160 lb) 12/29/2024 8:29 AM HIGH SCHOOL FOOTBALL COACH Height 165.1 cm (5' 5 ) 12/29/2024 8:29 AM HIGH SCHOOL FOOTBALL COACH Body Mass Index 26.63 12/29/2024 8:29 AM HIGH SCHOOL FOOTBALL COACH documented in this encounter Progress Notes * Reba Ochoa, STEFANIA - 12/29/2024 8:30 AM CST Faiza is a 49-year-old female who presents for Hip Pain (LEFT) Patient here in clinic today for follow up on LEFT hip pain. She rates her pain today at 4/10 due to she hasn't done anything today yet. States she is having pain to low back region down to LEFT foot. States the pain at times she has burning and tingling in the LEFT thigh region. States she had an MRI last week on her back ordered by PCP. States she also has a CT scan this week from waist down ordered by PCP. States she can't walk 2 blocks without having pain down the entire LEFT leg. Denies use of ice or heat. States she started on Lyrica and placed on medrol dose ángel which she has 1 day left on that which states has helped a little. She does also have fibromyalgia. Denies night pain. Denies use of assistive device. States she still having therapy at [facility] which she had 1 visit left but her PCP has extended the order. She is employed but has been off d/t they don't have light duty restriction as ordered. [x] Special Needs:Intra-articular hip inj at [facility] Vitals: 12/29/24 0829 Weight: 72.6 kg (160 lb) Height: 1.651 m (5' 5 ) Current Outpatient Medications Medication Sig adalimumab (HUMIRA, 2 PEN,) 40 MG/0.4ML pen-injector kit Inject 0.4 mLs (40 mg total) into the skin. diclofenac EC (VOLTAREN) 75 MG tablet Take 1 tablet (75 mg total) by mouth 2 (two) times daily. Please contact PCP for future refills. escitalopram (LEXAPRO) 10 MG tablet Take 1 tablet (10 mg total) by mouth daily. famotidine (PEPCID) 40 MG tablet Take 1 tablet (40 mg total) by mouth daily. folic acid (FOLVITE) 1 MG tablet Take 1 tablet (1 mg total) by mouth daily. hydroxychloroquine (PLAQUENIL) 200 MG tablet TAKE 1 TABLET (200 MG TOTAL) BY MOUTH 2 TIMES A DAY. losartan (COZAAR) 25 MG tablet 1 tablet (25 mg total). methotrexate (TREXALL) 2.5 MG tablet Take 8 tablets (20 mg total) by mouth once a week. (Patient not taking: Reported on 12/29/2024) methylPREDNISolone, ÁNGEL, (MEDROL DOSEPAK) 4 MG tablet Take 1 tablet (4 mg total) by mouth daily. pregabalin (LYRICA) 150 MG capsule Take 1 capsule (150 mg total) by mouth 2 (two) times daily. History reviewed. No pertinent surgical history. Allergies Erythromycin and Penicillins [x] Total Dkkt-rx-Atsm Assessment Time: 0-15 minutes Additional Contributory Factors NONE SCHOOL FOOTBALL COACH SCHOOL FOOTBALL COACH * Ronen Osborn Jr., DO - 12/29/2024 8:30 AM CST Images from the original note were not included. ORTHOPAEDIC SURGERY - PROGRESS NOTE Outpatient Primary Care Provider: EDU LAGUNA MD Consulting Physician: Reason for Consultation: Chief Complaint Patient presents with Hip Pain LEFT Assessment/Plan Faiza Serna is a 49-year-old female with the following medical problems: ICD-10-CM SNOMED CT(R) 1. Tear of left acetabular labrum, subsequent encounter S73.192D ACETABULAR LABRUM TEAR Plan: I reviewed the MRI of the lumbar spine. I do not see anything that could be causing her symptoms. I did recommend an intra-articular cortisone injection of her left hip. We we will get that scheduled for her. I will see her back after she completes as well as her therapy Physical Exam Filed Vitals: 12/29/24 0829 Weight: 72.6 kg (160 lb) Height: 1.651 m (5' 5 ) General - Alert, no acute distress. Respiratory - Non-labored respirations. Cardiovascular - Limbs are warm and well perfused. Abdomen - Soft, non-tender, non-distended. Musculoskeletal - PHYSICAL EXAM Pulses - 2+ pedal pulses with brisk capillary refill in the toes. Diagnostic Studies / Procedures Xray: No data to display No data to display No data to display No results found for: CRP , ESR Chief Complaint Chief Complaint Patient presents with Hip Pain LEFT History of Present Illness Patient here in clinic today for follow up on LEFT hip pain. She rates her pain today at 4/10 due to she hasn't done anything today yet. States she is having pain to low back region down to LEFT foot. States the pain at times she has burning and tingling in the LEFT thigh region. States she had an MRI last week on her back ordered by PCP. States she also has a CT scan this week from waist down ordered by PCP. States she can't walk 2 blocks without having pain down the entire LEFT leg. Denies use of ice or heat. States she started on Lyrica and placed on medrol dose ángel which she has 1 day left on that which states has helped a little. She does also have fibromyalgia. Denies night pain. Denies use of assistive device. States she still having therapy at [facility] which she had 1 visit left but her PCP has extended the order. She is employed but has been off d/t they don't have light duty restriction as ordered. Hip Pain Review of Systems Negative other than that which is mentioned in the HPI. Medical History Past Medical History: Diagnosis Date Anxiety Arthritis Rheumatoid Fibromyalgia Radius and ulna distal fracture bilateral as a child Seropositive erosive rheumatoid arthritis ([facility]) 07/02/2023 Sees Claims Service Representative Sherita Tripp MD at [facility] in [place], [place] History reviewed. No pertinent surgical history. Review of patient's allergies indicates: Allergen Reactions Erythromycin GI Upset Penicillins GI Upset Family History Problem Relation Name Age of Onset Arthritis Mother Mirta Hard Cancer Mother Mirta Hard Colon cancer Hypertension Mother Mirta Hard Cancer Father Jayson Lerma Prostate cancer Hypertension Father Jayson Lerma Social History Socioeconomic History Marital status: Tobacco Use Smoking status: Every Day Current packs/day: 1.00 Average packs/day: 1 pack/day for 30.0 years (30.0 ttl pk-yrs) Types: Cigarettes Smokeless tobacco: Never Vaping Use Vaping status: Never Used Substance and Sexual Activity Alcohol use: Never Drug use: Never Sexual activity: Yes Partners: Male control/protection: None Social Drivers of Health Financial Resource Strain: Low Risk (01/23/2024) Received from [facility], [facility] Overall Financial Resource Strain (CARDIA) Difficulty of Paying Living Expenses: Not hard at all Food Insecurity: No Food Insecurity (01/23/2024) Received from [facility], [facility] Hunger Vital Sign Worried About Running Out of Food in the Last Year: Never true Ran Out of Food in the Last Year: Never true Transportation Needs: No Transportation Needs (01/23/2024) Received from [facility], [facility] PRAPARE - Transportation Lack of Transportation (Medical): No Lack of Transportation (Non-Medical): No Physical Activity: Sufficiently Active (01/23/2024) Received from [facility], [facility] Exercise Vital Sign Days of Exercise per Week: 7 days Minutes of Exercise per Session: 150+ min Stress: No Stress Concern Present (01/23/2024) Received from [facility], [facility] [place] of Occupational Health - Occupational Stress Questionnaire Feeling of Stress : Not at all Social Connections: Socially Isolated (01/23/2024) Received from [facility], [facility] Social Connection and Isolation Panel [NHANES] Frequency of Communication with Friends and Family: Once a week Frequency of Social Gatherings with Friends and Family: Once a week Attends Sikhism Services: Never Active Member of Clubs or Organizations: No Attends Club or Organization Meetings: Not asked Marital Status: Housing Stability: Low Risk (01/23/2024) Received from [facility], [facility] Housing Stability Vital Sign Unable to Pay for Housing in the Last Year: No Number of Places Lived in the Last Year: 1 Unstable Housing in the Last Year: No Current Outpatient Medications: adalimumab (HUMIRA, 2 PEN,) 40 MG/0.4ML pen-injector kit, Inject 0.4 mLs (40 mg total) into the skin., Disp: , Rfl: diclofenac EC (VOLTAREN) 75 MG tablet, Take 1 tablet (75 mg total) by mouth 2 (two) times daily. Please contact PCP for future refills., Disp: 60 tablet, Rfl: 0 escitalopram (LEXAPRO) 10 MG tablet, Take 1 tablet (10 mg total) by mouth daily., Disp: , Rfl: famotidine (PEPCID) 40 MG tablet, Take 1 tablet (40 mg total) by mouth daily., Disp: , Rfl: folic acid (FOLVITE) 1 MG tablet, Take 1 tablet (1 mg total) by mouth daily., Disp: , Rfl: hydroxychloroquine (PLAQUENIL) 200 MG tablet, TAKE 1 TABLET (200 MG TOTAL) BY MOUTH 2 TIMES A DAY.,Disp: , Rfl: losartan (COZAAR) 25 MG tablet, 1 tablet (25 mg total)., Disp: , Rfl: methylPREDNISolone, ÁNGEL, (MEDROL DOSEPAK) 4 MG tablet, Take 1 tablet (4 mg total) by mouth daily., Disp: , Rfl: pregabalin (LYRICA) 150 MG capsule, Take 1 capsule (150 mg total) by mouth 2 (two) times daily., Disp: , Rfl: methotrexate (TREXALL) 2.5 MG tablet, Take 8 tablets (20 mg total) by mouth once a week. (Patient not taking: Reported on 12/29/2024), Disp: , Rfl: @SIGNATURE@ . Darrick Osborn MD Orthopedic Surgeon Adult [facility] Some of the information written in this document may have been copied and added to this document from the note of another provider. I agree with all of the information described above. Part or all of the information in this document was transcribed using a voice command transcriptionsoftware. I reviewed this note for errors, however; spelling errors or other inaccuracies may persist. SCHOOL FOOTBALL COACH documented in this encounter Plan of Treatment Scheduled Orders Name Type Priority Associated Diagnoses Orde r Schedule XR HIP INJ/ASP LT Fluoroscopy Routine Tear of left acetabular labrum, subsequent encounter Expected: 12/29/2024, Expires: 12/29/2025 documented as of this encounter Visit Diagnoses Diagnosis Tear of left acetabular labrum, subsequent encounter- Primary documented in this encounter Care Teams Department Director Relationship Specialty Start Date End Date Edu Laguna MD [address] [place] [id number] PCP - General INTERNAL MEDICINE 11/12/23 documented as of this encounter
--- OUTSIDE RECORDS SUMMARY | 2024-12-30 09:01 | XMS_ITS | Clinical Summary ---
Author Organization [facility] Address [address] [place] [address] Care Team Providers Care Health Outcomes Liaison Name Role Phone Edu Laguna MD Primary Care Provider [phone] Allergies Active Allergy Reactions Criticality Noted Date Comments Erythromycin GI Upset Low 07/02/2023 Penicillins GI Upset Low 07/02/2023 Medications escitalopram (LEXAPRO) 10 MG tablet Take 1 tablet (10 mg total) by mouth daily. Active famotidine (PEPCID) 40 MG tablet Take 1 tablet (40 mg total) by mouth daily. Active diclofenac EC (VOLTAREN) 75 MG tabletIndications: Primary osteoarthritis of left knee Take 1 tablet [...] TOTAL) BY MOUTH 2 TIMES A DAY. 4 Active pregabalin (LYRICA) 150 MG capsule Take 1 capsule (150 mg total) by mouth 2 (two) times daily. 5 Active methylPREDNISolone , ÁNGEL, (MEDROL DOSEPAK) 4 MG tablet Take 1 tablet (4 mg total) by mouth daily. 5 Active methotrexate (TREXALL) 2.5 MG tablet Take 8 tablets (20 mg total) by mouth once a week. 5 01/25/20 25 Active gabapentin (NEURONTIN) 300 MG capsule Take 1 capsule (300 mg total) by mouth 3 (three) times daily. 12/29/19 25 Discontin ued(Thera py completed ) Active Problems Problem Noted Date Diagnosed Date Acute right hip pain 09/30/2024 Tear of left acetabular labrum, subsequent encou nter 08/18/2024 Fibromyalgia 08/13/2024 Primary osteoarthritis of left knee 11/30/2023 Seropositive erosive rheumatoid arthritis (CMS/H CC [facility]) 07/02/2023 08/01/2024 Overview (08/13/2024): Sees Battery Tester And Repairer Sherita Tripp MD at [facility] in [place], [place] Nicotine dependence 07/02/2023 Encounters Date Type Department Care Team Description 12/29/2024 8:30 AM WELDER GAS AUTOMATIC Office Visit [address] [address] Ronen Osborn Jr., DO Hip Pain (LEFT) 12/29/2024 Travel 11/18/[address] [address] Ronen Osborn Jr., DO Question 11/17/2024 3:15 PM WELDER GAS AUTOMATIC Office Visit [address] [address] Ronen Osborn Jr., DO Hip Pain (LEFT) 11/17/2024 Travel 10/16/2024 9:50 AM WELDER GAS AUTOMATIC - 10/16/2024 11:59 PM WELDER GAS AUTOMATIC Hospital Encounter [facility] [address] [facility] [address] Yolanda Bolaños, FARM RANCHER- Discharge Disposition: Home or Self Care (Routine Discharge) 10/16/2024 Travel 09/30/2024 10:00 AM WELDER GAS AUTOMATIC Office Visit [place] [address] [facility] [address] [place] [address] Yolanda Bolaños, FARM RANCHER- MRI Results (LEFT hip) 09/30/2024 Travel from [...] Sex Assigned at Female 12/29/2024 8:24 AM WELDER GAS AUTOMATIC Legal Sex Female 5:31 PM CDT Gender Identity Not on file Sexual Orientation Not on file Last Filed Vital Signs Vital Sign Reading Time Taken Comments Blood Pressure - - Pulse - - Temperature - - Respiratory Rate - - Oxygen Saturation - - Inhaled Oxygen Concentration - - Weight 72.6 kg (160 lb) 12/29/2024 8:29 AM WELDER GAS AUTOMATIC Height 165.1 cm (5' 5 ) 12/29/2024 8:29 AM WELDER GAS AUTOMATIC Body Mass Index 26.63 12/29/2024 8:29 AM WELDER GAS AUTOMATIC Plan of Treatment Health Maintenance Due Date [...] (2023-2 5 season) 2024 10/05/2021, 02/07/2021, 01/10/2021 DTaP, Tdap and Td Vaccines ( 2 - Td or Tdap) 09/07/2031 09/07/2021 Pneumococcal Vaccine: Pediatrics (0 to 5 Years) and At-Risk Patients (6 to 64 Years) Completed 10/01/2023 Hepatitis C Completed 06/24/2024, 06/24/2024, 07/02/2023 Influenza Adult Completed 10/21/2024 Meningococcal B Vaccine Aged Out No l [...] INJ/ASP LT Routine 10/16/2024 10: 41 AM WELDER GAS AUTOMATIC Tear of left acetabular labrum, subsequent encounter from Last 3 Months Results * XR HIP INJ/ASP LT (10/16/2024 10:41 AM WELDER GAS AUTOMATIC) Anatomical Region Laterality Modality Hip Radiographic Jessenia ging, Radiographic Imaging 10/16/2024 10:4 1 AM WELDER GAS AUTOMATIC Impressions 10/16/2024 10:42 AM WELDER GAS AUTOMATIC IMPRESSION: Uneventful therapeutic left hip arthrogram as described. Ordered By: YOLANDA BOLAÑOS Interpreted By: Hieu Oh MD, 10/16/2024 10:41 AM Narrative 10/16/2024 10:42 AM WELDER GAS AUTOMATIC [address] [place] [address] Examination: Therapeutic left hip arthrogram. Exam time: [...] Procedure Note Hieu Oh MD - 10/16/[address] [place] [address] Examination: Therapeutic left hip arthrogram. Exam time: [...] successfullypunctured without incident under fluoroscopic guidance utilizing [id number] spinal needle. Following confirmation of intra- articular [...] MD, 10/16/2024 10:41 AM us Yolanda Bolaños FARM RANCHER-BC FLUOROSCOPY Final Resu lt from Last 3 Months Insurance [employer] T[employer] Care Teams Health Outcomes Liaison Relationship Specialty Start Date End Date Edu Laguna MD [address] [place] [address] PCP - General INTERNAL MEDICINE 11/12/23
--- OUTSIDE RECORDS SUMMARY | 2024-12-30 09:01 | XMS_ITS | Referral Summary ---
Author Organization [place] [id number] [facility] Address [address] [place] [address] Care Team Providers Care Basketball Referee Name Role Phone Edu Laguna MD Primary Care Provider [phone] Encounters Date Type Department Care Team Description 10/28/2024 Telephone [facility] [address] [facility] [address] [place] [address] Libby Lazo [facility] 10/21/2024 11:00 AM FRUIT LOADER Office Visit [facility] [address] [place] [address] [address] [place] [address] Sherita Tripp MD Rheumatoid arthritis [...] week 01/23/2024 How often do you attend uatsdin or baptist serv ices? Never 01/23/2024 Do you belong to any clubs o r organizations such as uatsdin groups, unions, fraternal or athletic groups, or [...] Recorded Patient Health Questionnaire-2 Score 0 01/23/2024 [facility] [place] of Occupat ional Health - Occupational Stress [...] place to sleep or slept in a mcc (including now)? No 01/23/2024 Comments Unknown Sex and Gender Information Value Date Recorded Sex Assigned at Not on file Legal Sex Female 3:24 PM CDT Gender Identity Not on file Sexual Orientation Not on file Last Filed Vital Signs Vital Sign Reading Time Taken Comments Blood Pressure 158/89 10/21/2024 10:34 AM FRUIT LOADER Pulse 59 10/21/2024 10:34 AM FRUIT LOADER Temperature 36.3 C (97.4 F) 10/21/2024 10:34 AM FRUIT LOADER Respiratory Rate - - Oxygen Saturation 98% 10/21/2024 10:34 AM FRUIT LOADER Inhaled Oxygen Concentration - - Weight 67.6 kg (149 lb) 10/21/2024 10:34 AM FRUIT LOADER Height 165.1 cm (5' 5 ) 10/21/2024 10:34 AM FRUIT LOADER Body Mass Index 24.79 10/21/2024 10:34 AM FRUIT LOADER Plan of Treatment Not on file Procedures [...] - GEN ERAL ORDERABLES Final Result [address] Department [place] [address] from Last 3 Months or Most Recently Relevant to Health Maintenance Insurance [employer] [facility] [employer] [facility] [facility] Care Teams Basketball Referee Relationship Specialty Start Date End Date Edu Laguna MD PCP - General Internal Medicine 02/23/23
== END 2024-12-30 08:41 | disposition home or self-care (01) ==
LOC: CHSIMG 08:43
PROVIDERS: PCP Internal Medicine; Visit Provider Internal Medicine
DX: I73.9 Peripheral vascular disease, unspecified (principal); I74.09 Other arterial embolism and thrombosis of abdominal aorta; I70.8 Atherosclerosis of other arteries; K76.0 Fatty (change of) liver, not elsewhere classified
CPT/HCPCS: 75635; 76705; Q9967

== ENCOUNTER 2025-01-02 08:24 | Outpatient (RCR) | payer OTHER, SELFPAY ==
--- NOTE | 2025-01-02 09:54 | OPREHPOC ---
Outpatient Therapy Plan of Care This is a Multidisciplinary Plan of Care that may contain components documented by all disciplines (PT, OT, and ST.) PT Problem 1 PT Problem #1 Knowledge Deficit PT Goal 1 Goal / Goal Update Independent with HEP. Target Visit 4 PT Problem 2 PT Problem #2 Pain PT Goal 1 Goal / Goal Update Pt to note no more than 5/10 pain when standing or walking for more than 30 minutes. Target Visit 10 PT Problem 3 PT Problem #3 Impaired Strength PT Goal 1 Goal / Goal Update Pt to improve gross LLE strength to 4+/5. Pt to improve abdominal strength to 4+/5 for improved lumbar stability. Target Visit 10 PT Problem 4 PT Problem #4 Impaired Flexibility PT Goal 1 Goal / Goal Update Pt to improve bilat hamstring length to -30 degrees in 90/90 position. Target Visit 10 PT Problem 5 PT Problem #5 Impaired Functional Mobility PT Goal 1 Goal / Goal Update Pt to report no more than 20% disability on oswestry. Target Visit 10
--- NOTE | 2025-01-02 09:54 | PTOPEVAL1 ---
Assessment and note entered by Heather Ayala, PT Evaluation Information Assessment Status Evaluation ICD-10 Condition Codes (PT) Radiculopathy, lumbar region M54.16 Onset 03/30/24 Subjective Information Mrs. Serna notes onset of pain radiating down the leg for at least 9 months. Pain originates in the posterior buttock and runs down the leg and she also notes tightness behind the knee. Pain is worse on the left leg than the right and goes all the way down to the ankle. Pain feels the best when she's sitting however she's never pain free. Denies N/T. Reported Pain Level Pain Score 7: Self Report Assessment PT Clinical Summary Mrs. Serna is a 49 year old female presenting with s/s consistent with lumbar radiculopathy. She demonstrates generalized left LE weakness and pain radiating to the ankle that is increased with lumbar extension. These deficits are impairing her ability to stand for longer than 30 minutes and walking more than 1/4 mile. She also demonstrates a positive slump test and positive SLR test on the left as well as impaired core strength. She will benefit from skilled PT intervention to improve on these deficits and be able to perform daily tasks without exacerbation of pain. Plan of Care Interventions Electrical Stimulation,Gait Training,Hot Pack/Cold Pack,Manual Therapy,Mechanical Traction,Neuro Re- education,Patient/Caregiver Education,Therapeutic Activities,Therapeutic Exercise,Self-Care/Home Management PT Services Indicated Yes Treatment Frequency and 2x per week for 10 visits Duration These treatments will address the objective and functional deficits as defined above. The patient will be advanced safely and appropriately in order for the patient to progress towards his/her prior level of function. Additional exercises will be introduced and as well as a comprehensive home exercise program upon discharge, if needed, ?to ensure carryover of functional gains achieved in the clinic. This treatment plan has been reviewed and agreement upon by the patient.
--- NOTE | 2025-02-04 09:55 | OPREHPOC ---
Outpatient Therapy Plan of Care This is a Multidisciplinary Plan of Care that may contain components documented by all disciplines (PT, OT, and ST.) PT Problem 1 PT Problem #1 Knowledge Deficit PT Goal 1 Goal / Goal Update Independent with HEP. Target Visit 4 Progress Met PT Problem 2 PT Problem #2 Pain PT Goal 1 Goal / Goal Update Pt to note no more than 5/10 pain when standing or walking for more than 30 minutes. Target Visit 10 Progress Not Met PT Problem 3 PT Problem #3 Impaired Strength PT Goal 1 Goal / Goal Update Pt to improve gross LLE strength to 4+/5. Pt to improve abdominal strength to 4+/5 for improved lumbar stability. -not met Target Visit 10 Progress Partially Met PT Problem 4 PT Problem #4 Impaired Flexibility PT Goal 1 Goal / Goal Update Pt to improve bilat hamstring length to -30 degrees in 90/90 position. Target Visit 10 Progress Met PT Problem 5 PT Problem #5 Impaired Functional Mobility PT Goal 1 Goal / Goal Update Pt to report no more than 20% disability on oswestry. Target Visit 10 Progress Not Met
--- NOTE | 2025-02-04 09:55 | PTOPDC ---
Assessment and note entered by Heather Ayala, PT Evaluation Information Assessment Status Discharge ICD-10 Condition Codes (PT) Radiculopathy, lumbar region M54.16 Onset 03/30/24 Subjective Information Simona reports she continues to have low back and leg pain but that it's mainly related to a blockage in her leg. Her doctor has recommended she stop smoking, lower her cholesterol, and start walking at least 4x/week. She goes back to the doctor on March 18 and they have discussed possibly putting a stent in her artery to open up blood flow. At this time Faiza feels like she can manage her exercises and her pain on her own and is ready to discharge. Reported Pain Level Pain Score 8,3: Self Report Assessment PT Clinical Summary Mrs. Serna has attended 10 total skilled physical therapy visits for low back pain with pain radiating down her leg. Since starting therapy a blockage was found in one of her lower extremity arteries. She has since begun stopping smoking and has been walking 4x/week to try and lower her cholesterol to relieve her leg pain, with the option of putting a stent in the artery to open up blood flow. While she still experiences significant leg pain that increases with ambulation, at this time Faiza feels like she can manage her exercises and her pain on her own and is ready to discharge. Plan of Care PT Services Indicated No
== END 2025-02-04 11:22 | disposition home or self-care (01) ==
LOC: CHSPT 08:24
PROVIDERS: PCP Internal Medicine; Visit Provider Internal Medicine
DX: M54.17 Radiculopathy, lumbosacral region (principal)
CPT/HCPCS: 97012; 97014; 97110; 97112; 97150; 97161; G0283

== ENCOUNTER 2025-01-30 09:16 | Outpatient (CLI) | payer OTHER, SELFPAY ==
[2025-01-30 09:46] LABS: Basophils Absolute Auto 0.03 K/mm3 (0.00-0.10); Basophils Percent Auto 0.4 % (0.0-1.0); Eosinophils Absolute Auto 0.08 K/mm3 (0.02-0.50); Eosinophils Percent Auto 1.2 % (1.0-6.0); Hematocrit 46.3 % (35.0-49.0); Hemoglobin 15.1 g/dL (12.0-15.0); Immature Granulocyte Absolute 0.01 K/mm3 (0.00-0.00); Immature Granulocyte Percent A 0.1 % (0.0-0.0); Lymphocytes Absolute Auto 2.02 K/mm3 (1.10-4.50); Lymphocytes Percent Auto 29.5 % (18.0-42.0); Mean Corpuscular HGB Conc 32.6 g/dL (32-36); Mean Corpuscular Hemoglobin 30.5 pg (27.0-31.0); Mean Corpuscular Volume 93.5 fL (78.0-102.0); Mean Platelet Volume 9.9 fl (9.2-11.8); Monocytes Absolute Auto 0.46 K/mm3 (0.10-0.90); Monocytes Percent Auto 6.7 % (2.0-11.0); Neutrophils Absolute Auto 4.24 K/mm3 (1.70-7.20); Neutrophils Percent Auto 62.1 % (50.0-70.0); Platelet Count Result 261 K/mm3 (150-420); Red Blood Count 4.95 M/mm3 (4.20-5.40); Red Cell Distribution Width 13.4 % (11.6-14.4); White Blood Count 6.8 K/mm3 (4.8-10.8)
--- OUTSIDE RECORDS SUMMARY | 2025-01-30 09:54 | XMS_ITS | Clinical Summary ---
Author Organization [facility] [address] [facility] Address [address] [place] [address] Care Team Providers Care Vegetable Thinner Name Role Phone Edu Laguna MD Primary Care Provider [phone] Allergies Active Allergy Reactions Criticality Noted Date [...] 2 each 5 4 04/08/20 25 Active cilostazoL (PLETAL) 50 mg tablet 5 Active pregabalin (LYRICA) 150 mg capsule Take 1 capsule (150 mg total) by mouth 2 (two) times a day Active rosuvastatin (CRESTOR) 5 mg tablet 5 Active methotrexate 2.5 mg tabletIndication s:autoimmune disease Take 3 tablets (7.5 mg total) by mouth every 7 days 36 tablet 1 5 07/20/20 25 Active methotrexate 2.5 mg tabletIndication s:autoimmune disease Take 8 tablets (20 mg total) by mouth every 7 days 32 tablet 5 01/22/20 25 Discontinu ed(Reorder ) Active Problems Problem Noted Date Diagnosed Date Nicotine dependence 07/02/2023 Rheumatoid arthritis 07/02/2023 Encounters Date Type Department Care Team Description 01/21/2025 Orders Only [facility] Rhe[facility] [address] 5[address] [place] [address] [place] [address] Provider, MD Bruno 01/20/2025 11:00 AM CDT Office Visit [facility] [address] [place] [address] [address] [place] [address] Sherita Tripp MD Rheumatoid arthritis involving multiple sites with positive rheumatoid factor (HCC) (Primary Dx); High risk medication use; Fatty liver; Elevated liver enzymes 12/30/2024 Orders Only [facility] Scanning, Provider 12/26/2024 Orders Only [facility] Scanning, Provider from Last 3 Months Immunizations Immunization Administration [...] Types Packs/Day Years Used Date Smoking Tobacco: Some Days Cigarettes Passive Smoke Exposure: Never Smokeless Tobacco: Never Tobacco Cessation:Ready to Q uit: Yes; Counseling Given: No Social Connection and Isolation Panel [NHANES] A nswer Date Recorded In a typical week, how many times do you talk on the phone with family, friends, or neighbors? Once a week 01/20/2025 How often do you get togethe r with friends or relatives? Once a week 01/20/2025 How often do you attend episcopalian or christian serv ices? Patient declined 01/20/2025 Do you belong to any clubs o r organizations such as episcopalian groups, unions, fraternal or athletic groups, or school groups? No 01/20/2025 How often do you attend meet ings of the clubs or organizations you belong to? Not asked 01/20/2025 Are you , , di vorced, , never , or living with a partner? 01/20/2025 Overall Financial Resource Strain (CARDIA) Answe r Date Recorded How hard is it for you to pa y for the very basics like food, housing, medical care, and heating? Not hard at all 01/20/2025 PHQ-2 Answer Date Recorded Patient Health Questionnaire-2 Score 0 01/20/2025 [facility] - Occupational Stress Questionnaire Answer Date Recorded Do you feel stress - tense, restless, nervous, or anxious, or unable to sleep at night because your mind is troubled all the time - these days? Not at all 01/20/2025 Exercise Vital Sign Answer Date Recorde d On average, how many days pe r week do you engage in moderate to strenuous exercise (like a brisk walk)? Patient declined On average, how many minutes do you engage in exercise at this level? 20 min 01/20/2025 Hunger Vital Sign Answer Date Recorded Within the past 12 months, y ou worried that your food would run out before you got the money to buy more. Never true 01/21/20 25 Within the past 12 months, t he food you bought just didn't last and you didn't have money to get more. Never true 01/20/2025 PRAPARE - Transportation Answer Date Re corded In the past 12 months, has l ack of transportation kept you from medical appointments or from getting medications? No 01/03 In the past 12 months, has l ack of transportation kept you from meetings, work, or from getting things needed for daily living? No 01/20/2025 Housing Stability Vital Sign Answer Eric e [...] place to sleep or slept in a long term (including now)? No 01/23/2024 Comments Unknown Sex and Gender Information Value Date Recorded Sex Assigned at Not on file Legal Sex Female 3:24 PM CDT Gender Identity Not on file Sexual Orientation Not on file Obstetrics History Last Filed Vital Signs Vital Sign Reading Time Taken Comments Blood Pressure 169/98 01/20/2025 10:56 AM CDT Pulse 68 01/20/2025 10:56 AM CDT Temperature 36.5 C (97.7 F) 01/20/2025 10:56 AM CDT Respiratory Rate - - Oxygen Saturation 98% 01/20/2025 10:56 AM CDT Inhaled Oxygen Concentration - - Weight 74.2 kg (163 lb 9.6 oz) 01/20/2025 10:56 AM CDT Height 165.1 cm (5' 5 ) 01/20/2025 10:56 AM CDT Body Mass Index 27.22 01/20/2025 10:56 AM CDT Plan of Treatment Health Maintenance Due Date Last Done Comments Breast Cancer Screening-Mammogram 1975 Cervical Cancer Screening 1975 Colon Cancer Screening-Colonoscopy 1975 DTaP/Tdap/Td Vaccine (1 - Tdap) 1986 Regular Well Visit/Exam 18-64 1993 Zoster Vaccine (1 of 2) 1994 Depression Screening 01/20/2026 01/20/2025, 01/23/2024, 07/02/2023 Pneumococcal vaccine <65 Completed 10/01/2023 Hepatitis B Screening Completed 06/24/2024 Hepatitis C Screening Completed 06/24/2024, 023 Influenza Vaccine Completed 10/21/2024, 10/01/2023 Procedures Procedure Name Priority Date/Time Associated Diagnosis Comments CT ABDOMEN PELVIS W WO CONTRAST Schedule Routine, Read Routine (OP Routine) 01/21/2025 2:43 PM CDT SCAN - RADIOLOGY/IMAGING 12/30/2024 SCAN - LABS 12/26/2024 HEPATITIS C ANTIBODY Routine 06/24/2024 11:43 AM CDT Rheumatoid arthritis involving multiple sites with positive rheumatoid factor (HCC) High risk medication use from Last 3 Months or Most Recently Relevant to Health Maintenance Results * CT Abdomen Pelvis W WO Contrast (01/21/2025 2:43 PM CDT) Anatomical Region Laterality Modality Body N/A Computed Tomogra phy Historical Provider MD [facility] CT PROCEDURES Final R esult * SCAN - RADIOLOGY/IMAGING (12/30/2024) Anatomical Region Laterality Modality Other Provider Scanning Final Result * SCAN - LABS (12/26/2024) us Provider Scanning Final Result * Hepatitis C antibody Blood (06/24/2024 11:43 [...] - GEN ERAL ORDERABLES Final Result [facility] [address] [place] [employer] [place] [address] from Last 3 Months or Most Recently Relevant to Health Maintenance Insurance AETNA [facility] AETNA [facility] [facility] Care Teams Vegetable Thinner Relationship Specialty Start Date End Date Edu Laguna MD PCP - General Internal Medicine 02/23/23
--- OUTSIDE RECORDS SUMMARY | 2025-01-30 09:54 | XMS_ITS | Encounter Summary ---
Author Organization [facility] Address [address] [place] [address] Phone Care Team Providers Care Networking Administrator Name Role Phone Edu Laguna MD Primary Care Provider [phone] Encounter Details Date Type Department Care Team (Late st Contact Info) Description 12/26/2024 Orders Only [facility] Scanning, Provider Social History Tobacco Use Types Packs/Day Years Used Date Smoking Tobacco: Every Day Cigarettes Smokeless Tobacco: Never Social Connection and Isolation Panel [NHANES] A nswer Date Recorded In a typical week, how many times do you talk on the phone with family, friends, or neighbors? Once a week 01/23/2024 How often do you get together with friends or re latives? Once a week 01/23/2024 How often do you attend catholic or jainism serv ices? Never 01/23/2024 Do you belong to any clubs o r organizations such as catholic groups, unions, fraternal or athletic groups, or [...] Recorded Patient Health Questionnaire-2 Score 0 01/23/2024 [facility] - Occupational Stress Questionnaire Answer [...] money to buy more. Never true 01/23/20 Within the past 12 months, t he [...] place to sleep or slept in a chcf (including now)? No 01/23/2024 Comments Unknown Sex and Gender Information Value Date Recorded Sex Assigned at Not on file Legal Sex Female 3:24 PM CDT Gender Identity Not on file Sexual Orientation Not on file documented as of this encounter Plan of Treatment Not on file documented as of this encounter Procedures Procedure Name Priority Date/Time Associated Diagnosis Comments SCAN - LABS 12/26/2024 documented in this encounter Results * SCAN - LABS (12/26/2024) us Provider Scanning Final Result documented in this encounter Visit Diagnoses Not on filedocumented in this encounter Care Teams Networking Administrator Relationship Specialty Start Date End Date Edu Laguna MD PCP - General Internal Medicine 02/23/23 documented as of this encounter
--- OUTSIDE RECORDS SUMMARY | 2025-01-30 09:54 | XMS_ITS | Clinical Summary ---
Author Organization [facility] Address [address] [place] [address] Care Team Providers Care Cooling Tower Operator Name Role Phone Edu Laguna MD Primary Care Provider [phone] Allergies Active Allergy Reactions Criticality Noted Date [...] mouth 2 (two) times daily. 5 Active methylPREDNISolone, ÁNGEL, (MEDROL DOSEPAK) 4 MG tablet Take 1 tablet (4 mg total) by mouth daily. 5 Active methotrexate (TREXALL) 2.5 MG tablet Take 8 tablets (20 mg total) by mouth once a week. 5 01/25/20 25 Active Problems Problem Noted Date Diagnosed Date Acute right hip pain 09/30/2024 Tear of left acetabular labrum, subsequent encou nter 08/18/2024 Fibromyalgia 08/13/2024 Primary osteoarthritis of left knee 11/30/2023 Seropositive erosive rheumatoid arthritis (CMS/H CC HHS/HCC) 07/02/2023 08/01/2024 Overview (08/13/2024): Sees Manager Image Sherita Tripp MD at [facility] in [place], [place] Nicotine dependence 07/02/2023 Encounters Date Type Department Care Team Description 12/29/2024 8:30 AM CERTIFIED PHYSICIAN ASSISTANT Office Visit [address] [address] Ronen Osborn Jr., DO Hip Pain (LEFT) 12/29/2024 Travel 11/18/[address] [address] Ronen Osborn Jr., DO Question 11/17/2024 3:15 PM CERTIFIED PHYSICIAN ASSISTANT Office Visit [address] [address] Ronen Osborn Jr., DO Hip Pain (LEFT) 11/17/2024 Travel from Last 3 Months Family History [...] Sex Assigned at Female 12/29/2024 8:24 AM CERTIFIED PHYSICIAN ASSISTANT Legal Sex Female 5:31 PM CDT Gender Identity Not on file Sexual Orientation Not on file Last Filed Vital Signs Vital Sign Reading Time Taken Comments Blood Pressure - - Pulse - - Temperature - - Respiratory Rate - - Oxygen Saturation - - Inhaled Oxygen Concentration - - Weight 72.6 kg (160 lb) 12/29/2024 8:29 AM CERTIFIED PHYSICIAN ASSISTANT Height 165.1 cm (5' 5 ) 12/29/2024 8:29 AM CERTIFIED PHYSICIAN ASSISTANT Body Mass Index 26.63 12/29/2024 8:29 AM CERTIFIED PHYSICIAN ASSISTANT Plan of Treatment Health Maintenance Due Date [...] Every 5 Years 2005 Cervical Cancer Screening [facility] HPV 2005 Mammogram Screening 2015 COVID-19 Vaccine [...] on patient's age to complete this topic Insurance AETNA AETNA Care Teams Cooling Tower Operator Relationship Specialty Start Date End Date Edu Laguna MD [address] [place] [address] PCP - General INTERNAL MEDICINE 11/12/23
--- OUTSIDE RECORDS SUMMARY | 2025-01-30 09:54 | XMS_ITS | Referral Summary ---
Author Organization [facility] [address] [facility] Address [address] [place] [address] Care Team Providers Care Neurology Tech Name Role Phone Edu Laguna MD Primary Care Provider [phone] Encounters Date Type Department Care Team Description 01/21/2025 Orders Only [facility] Rheumat[facility] [address] [place] [address] [place] [address] ProviderBruno MD 01/20/2025 11:00 AM CDT Office Visit [facility] Rheumat[facility] [address] [place] [address] Sherita Tripp MD Rheumatoid arthritis involving multiple sites with positive rheumatoid factor (HCC) (Primary Dx); High risk medication use; Fatty liver; Elevated liver enzymes 12/30/2024 Orders Only [facility] Scanning, Provider 12/26/2024 Orders Only [facility] Scanning, Provider from Last 3 Months Allergies Active Allergy [...] week 01/20/2025 How often do you attend moravian or amish serv ices? Patient declined 01/20/2025 Do you [...] Recorded Patient Health Questionnaire-2 Score 0 01/20/2025 [facility] Occupat ional [facility] - Occupational Stress Questionnaire Answer Date Recorded [...] 01/20/2025 10:56 AM CDT Plan of Treatment Not on file Procedures [...] Laterality Modality Body N/A Computed Tomogra phy us Historical Provider MD [facility] PROCEDURES Final R esult * SCAN - RADIOLOGY/IMAGING (12/30/2024) Anatomical Region Laterality Modality Other Provider Scanning Final Result * SCAN - LABS (12/26/2024) Provider Scanning Final Result * Hepatitis C [...] MICROBIOLOGY - GEN ERAL ORDERABLES Final Result [facility] [address] Department [place] [address] from Last 3 Months or Most Recently Relevant to Health Maintenance Insurance AETNA [facility] AETNA [facility] Care Teams Neurology Tech Relationship Specialty Start Date End Date Edu Laguna MD PCP - General Internal Medicine 02/23/23
--- OUTSIDE RECORDS SUMMARY | 2025-01-30 09:54 | XMS_ITS | Encounter Summary ---
Author Organization [facility] Address [address] [place] [address] Phone Care Team Providers Care Java Lead Name Role Phone Edu Laguna MD Primary Care Provider Encounter Details Date Type Department Care Team (Late st Contact Info) Description 12/30/2024 Orders Only [facility] Scanning, Provider [...] week 01/23/2024 How often do you attend hinduism or holiness serv ices? Never 01/23/2024 Do you belong to any clubs o r organizations such as hinduism groups, unions, fraternal or athletic groups, or [...] Recorded Patient Health Questionnaire-2 Score 0 01/23/2024 [facility]at ional [facility] - Occupational Stress Questionnaire Answer Date [...] Priority Date/Time Associated Diagnosis Comments SCAN - RADIOLOGY/IMAGING 12/30/2024 documented in this encounter Results * SCAN - RADIOLOGY/IMAGING (12/30/2024) Anatomical Region Laterality Modality Other us Provider Scanning Final Result documented in this encounter Visit Diagnoses Not on filedocumented in this encounter Care Teams Java Lead Relationship Specialty Start Date End Date Edu Laguna MD PCP - General Internal Medicine 02/23/23 documented as of this encounter
--- OUTSIDE RECORDS SUMMARY | 2025-01-30 09:54 | XMS_ITS | Encounter Summary ---
Author Organization [facility] Address [facility] [place] [address] Care Team Providers Care Cutting And Splicing Supervisor Name Role Phone Edu Laguna MD Primary Care Provider [phone] Encounter Details Date Type Department Care Team (Late st Contact Info) Description 11/30/2023 Superhuman Message Enc [address] [address] [place], [address] [place] [id number] Visit Follow Up Social History Tobacco Use Types Packs/Day Years Used Date Smoking Tobacco: Every Day Cigarettes 1 30 Smokeless Tobacco: Never Alcohol Use Standard Drinks/Week Comments Never 0 (1 standard drink = 0.6 oz pur e alcohol) Comments Unknown Sex and Gender Information Value Date Recorded Sex Assigned at Female 12/29/2024 8:24 AM PROFILER OPERATOR Legal Sex Female 5:31 PM CDT Gender Identity Not on file Sexual Orientation Not on file documented as of this encounter Plan of Treatment Not on file documented as of this encounter Visit Diagnoses Not on filedocumented in this encounter Care Teams Cutting And Splicing Supervisor Relationship Specialty Start Date End Date Edu Laguna MD [address] [place] [address] PCP - General INTERNAL MEDICINE 11/12/23 documented as of this encounter
[2025-01-30 11:16] LABS: Alanine Aminotransferase 67 U/L (14-59); Albumin Level 4.1 g/dL (3.4-5.0); Alkaline Phosphatase 114 U/L (46-116); Anion Gap 9 mmol/L (4-12); Aspartate Amino Transferase 26 U/L (15-37); Bilirubin,Total 0.5 mg/dL (0.00-1.00); Blood Urea Nitrogen 18 mg/dL (7-18); Calcium 9.5 mg/dL (8.5-10.1); Carbon Dioxide 27 mmol/L (21-32); Chloride 102 mmol/L (98-108); Estimated Glomerular Filt Rate > 60; Glucose 78 mg/dL (70-99); Osmolality Calculated 286 mOsm/kg (285-295); Potassium 4.7 mmol/L (3.5-5.1); Sodium 138 mmol/L (136-145); Total Protein 7.1 g/dL (6.4-8.2)
[2025-01-30 11:26] LABS: CRP < 0.5 mg/dL (0.0-0.9)
== END 2025-01-30 09:17 | disposition home or self-care (01) ==
PROVIDERS: PCP Internal Medicine; Visit Provider Internal Medicine
DX: R94.5 Abnormal results of liver function studies (principal); M06.9 Rheumatoid arthritis, unspecified
CPT/HCPCS: 36415; 80053; 85025; 86140

== ENCOUNTER 2025-03-09 08:43 | Outpatient (CLI) | payer MEDICAID, SELFPAY ==
--- OUTSIDE RECORDS SUMMARY | 2025-03-09 09:08 | XMS_ITS | Encounter Summary ---
Author Organization [facility] Address [facility] [place] [address] Care Team Providers Care Plywood Factory Worker Name Role Phone Edu Laguna MD Primary Care Provider [phone] Encounter Details Date Type Department Care Team (Late st Contact Info) Description 11/30/2023 Acamica Message Enc [address] [address] [place], [address] [place] [phone] Visit Follow Up Social History Tobacco Use Types Packs/Day Years Used Date Smoking Tobacco: Every Day Cigarettes 1 30 Smokeless Tobacco: Never Alcohol Use Standard Drinks/Week Comments Never 0 (1 standard drink = 0.6 oz pur e alcohol) Comments Unknown Sex and Gender Information Value Date Recorded Sex Assigned at Female 12/29/2024 8:24 AM PLANT OPERATOR/SHIFT SUPERVISOR Legal Sex Female 5:31 PM CDT Gender Identity Not on file Sexual Orientation Not on file documented as of this encounter Plan of Treatment Not on file documented as of this encounter Visit Diagnoses Not on filedocumented in this encounter Care Teams Plywood Factory Worker Relationship Specialty Start Date End Date Edu Laguna MD [address] [place] [address] PCP - General INTERNAL MEDICINE 11/12/23 documented as of this encounter
--- OUTSIDE RECORDS SUMMARY | 2025-03-09 09:08 | XMS_ITS | Clinical Summary ---
Author Organization [facility] Address [address] [place] [address] Care Team Providers Care Restaurant Recruiter Name Role Phone Edu Laguna MD Primary Care Provider [phone] Allergies Active Allergy Reactions Criticality Noted Date [...] for future refills. 60 tablet 4 Active losartan (COZAAR) 25 MG tablet 1 [...] mg total) by mouth daily. 5 Active adalimumab (HUMIRA, 2 PEN,) 40 MG/0.4ML pen-injector kit Inject 0.4 mLs (40 mg total) into the skin. 4 02/12/20 25 Active Problems Problem Noted Date Diagnosed Date Acute right hip pain 09/30/2024 Tear of left acetabular labrum, subsequent encou nter 08/18/2024 Fibromyalgia 08/13/2024 Primary osteoarthritis of left knee 11/30/2023 Seropositive erosive rheumatoid arthritis (CMS/H CC [facility]) 07/02/2023 08/01/2024 Overview (08/13/2024): Sees Financial Institution Vice President Sherita Tripp MD at [facility] Rheumatology in [place], [place] Nicotine dependence 07/02/2023 Encounters Date Type Department Care Team Description 12/29/2024 8:30 AM AUTOMATIC BRINE MIXER [place]PER[place] [address] Ronen Osborn Jr., DO Hip Pain (LEFT) 12/29/2024 Travel from Last 3 Months Family History [...] Sex Assigned at Female 12/29/2024 8:24 AM AUTOMATIC BRINE MIXER OPERATOR Legal Sex Female 5:31 PM CDT Gender Identity Not on file Sexual Orientation Not on file Last Filed Vital Signs Vital Sign Reading Time Taken Comments Blood Pressure - - Pulse - - Temperature - - Respiratory Rate - - Oxygen Saturation - - Inhaled Oxygen Concentration - - Weight 72.6 kg (160 lb) 12/29/2024 8:29 AM AUTOMATIC BRINE MIXER OPERATOR Height 165.1 cm (5' 5 ) 12/29/2024 8:29 AM AUTOMATIC BRINE MIXER OPERATOR Body Mass Index 26.63 12/29/2024 8:29 AM AUTOMATIC BRINE MIXER OPERATOR Plan of Treatment Health Maintenance Due Date [...] HPV 2005 Mammogram Screening 2015 COVID-19 Vaccine (4 - 2023-2 5 season) 2024 10/05/2021, 02/07/2021, 01/10/2021 Lung Cancer Screening 2025 Zoster Vaccines (1 of 2) 2025 DTaP, Tdap and Td Vaccines ( 2 - Td or Tdap) 09/07/2031 09/07/2021 Pneumococcal Vaccine: 50+ Years Completed 10/01/2023 Hepatitis C Completed 06/24/2024, 06/24/2024, [...] this topic Insurance AETNA AETNA Care Teams Restaurant Recruiter Relationship Specialty Start Date End Date Edu Laguna MD [address] [place] [address] PCP - General INTERNAL MEDICINE 11/12/23
--- OUTSIDE RECORDS SUMMARY | 2025-03-09 09:09 | XMS_ITS | Referral Summary ---
Author Organization [facility] [address] [facility] Address [address] [place] [address] Care Team Providers Care Infant Nanny Name Role Phone Edu Laguna MD Primary Care Provider [phone] Encounters Date Type Department Care Team Description 01/21/2025 Orders Only [facility] Rheumatology [address] [place] [address] [place] [address] ProviderBruno MD 01/20/2025 11:00 AM CDT Office Visit [facility] Rheumatology [address] [place] [address] Sherita Tripp MD Rheumatoid arthritis [...] 2 each 5 10/22/2024 04/08/20 25 Active cilostazoL (PLETAL) 50 mg tablet 01/08/2025 Active pregabalin (LYRICA) 150 mg capsule Take 1 capsule (150 mg total) by mouth 2 (two) times a day Active rosuvastatin (CRESTOR) 5 mg tablet 01/08/2025 Active methotrexate 2.5 mg tabletIndication s:autoimmune disease Take 3 tablets (7.5 mg total) by mouth every 7 days 36 tablet 1 01/21/2025 07/20/20 25 Active Active Problems Problem Noted Date [...] week 01/20/2025 How often do you attend hinduism or druze serv ices? Patient declined 01/20/2025 Do you [...] Recorded Patient Health Questionnaire-2 Score 0 01/20/2025 [facility] - Occupational Stress [...] place to sleep or slept in a penitentiary (including now)? No 01/23/2024 Comments Unknown Sex [...] Region Laterality Modality Other us Provider Scanning Edited Result - Final * SCAN - LABS (12/26/2024) us Provider [...] Final Result Performing Organization Address City/State/ZIP Co fl Phone Number [facility] [address] Department [place] [address] from Last 3 Months or Most Recently Relevant to Health Maintenance Insurance AETNA [facility] [place] AETNA [facility] EXCHANGE AETNA [facility] Care Teams Infant Nanny Relationship Specialty Start Date End Date Edu Laguna MD PCP - General Internal Medicine 02/23/23
--- OUTSIDE RECORDS SUMMARY | 2025-03-09 09:09 | XMS_ITS | Encounter Summary ---
Author Organization [facility] Address [address] [place] [address] Phone Care Team Providers Care Daycare Director Name Role Phone Edu Laguna MD Primary Care Provider [phone] Encounter Details Date Type Department Care Team [...] week 01/23/2024 How often do you attend congregational or hoahaoism serv ices? Never 01/23/2024 Do you belong to any clubs o r organizations such as congregational groups, unions, fraternal or athletic groups, or [...] Recorded Patient Health Questionnaire-2 Score 0 01/23/2024 [facility] - Occupational Stress Questionnaire Answer Date [...] place to sleep or slept in a correction (including now)? No 01/23/2024 Comments Unknown Sex [...] on filedocumented in this encounter Care Teams Daycare Director Relationship Specialty Start Date End Date Edu Laguna MD PCP - General Internal Medicine 02/23/23 documented as of this encounter
--- OUTSIDE RECORDS SUMMARY | 2025-03-09 09:09 | XMS_ITS | Encounter Summary ---
Author Organization [facility] Address [address] [place] [place] [address] Phone Care Team Providers Care Global Climate Change Analyst Name Role Phone Edu Laguna MD Primary Care Provider [phone] Encounter Details Date Type Department Care Team [...] week 01/23/2024 How often do you attend presybeterian or church serv ices? Never 01/23/2024 Do you belong to any clubs o r organizations such as presybeterian groups, unions, fraternal or athletic groups, or [...] Recorded Patient Health Questionnaire-2 Score 0 01/23/2024 [facility] - Occupational Stress Questionnaire Answer Date [...] us Provider Scanning Edited Result - Final documented in this encounter Visit Diagnoses Not on filedocumented in this encounter Care Teams Global Climate Change Analyst Relationship Specialty Start Date End Date Edu Laguna MD PCP - General Internal Medicine 02/23/23 documented as of this encounter
--- OUTSIDE RECORDS SUMMARY | 2025-03-09 09:09 | XMS_ITS | Clinical Summary ---
Author Organization [facility] [address] [facility] Address [address] [place] [address] Care Team Providers Care Surveyor Oil Well Directional Name Role Phone Edu Laguna MD Primary Care Provider [phone] Allergies Active Allergy Reactions Criticality Noted Date [...] Department Care Team Description 01/21/2025 Orders Only [facility] Rheumatology [address] [place] [address] [place] [address] Provider, MD Bruno 01/20/2025 11:00 AM CDT Office Visit [facility] Rheumatology [address] [place] [address] Sherita Tripp MD Rheumatoid arthritis involving multiple [...] week 01/20/2025 How often do you attend buddhist or catholic serv ices? Patient declined 01/20/2025 Do you belong to any clubs o r organizations such as buddhist groups, unions, fraternal or athletic groups, or [...] Recorded Patient Health Questionnaire-2 Score 0 01/20/2025 [facility] - Occupational Stress Questionnaire Answer Date [...] money to buy more. Never true 01/21/20 Within the past 12 months, t he [...] place to sleep or slept in a mcfp (including now)? No 01/23/2024 Comments Unknown Sex [...] Anatomical Region Laterality Modality Other Provider Scanning Edited Result - Final * [...] - GEN ERAL ORDERABLES Final Result [address] [address] [place] [address] from Last 3 Months or Most Recently Relevant to Health Maintenance Insurance AETNA BETTER [facility] [place] A[place] BETTER [facility] [place] Care Teams Surveyor Oil Well Directional Relationship Specialty Start Date End Date Edu Laguna MD PCP - General Internal Medicine 02/23/23
[2025-03-09 12:29] LABS: Alanine Aminotransferase 42 U/L (14-59); Alkaline Phosphatase 112 U/L (46-116); Anion Gap 9 mmol/L (4-12); Aspartate Amino Transferase 19 U/L (15-37); Bilirubin,Total 0.4 mg/dL (0.00-1.00); Blood Urea Nitrogen 15 mg/dL (7-18); Calcium 9.5 mg/dL (8.5-10.1); Carbon Dioxide 30 mmol/L (21-32); Chloride 101 mmol/L (98-108); Creatine Kinase 73 U/L (26-192); Estimated Glomerular Filt Rate > 60; Glucose 84 mg/dL (70-99); Osmolality Calculated 289 mOsm/kg (285-295); Potassium 4.3 mmol/L (3.5-5.1); Sodium 140 mmol/L (136-145)
[2025-03-09 12:31] LABS: CRP < 0.5 mg/dL (0.0-0.9)
== END 2025-03-09 08:44 | disposition home or self-care (01) ==
LOC: CHSLAB 08:46
PROVIDERS: PCP Internal Medicine; Visit Provider Internal Medicine
DX: R94.5 Abnormal results of liver function studies (principal); E78.5 Hyperlipidemia, unspecified; Z79.899 Other long term (current) drug therapy
CPT/HCPCS: 36415; 80053; 82550; 86140

== ENCOUNTER 2025-06-02 14:46 | Outpatient (CLI) | payer OTHER, SELFPAY ==
--- NOTE | ~2025-06-02 | DEXA_ITS ---
Bone Density Report Name: PAUL REYES Age: 50 Sex: Female Ethnicity: White Date of : 1975 Indication: postmenopausal; screening for osteoporosis; height loss; rheumatoid arthritis; Referring Provider: Edu Laguna Study: Bone densitometry was performed. Exam Date: June 02, 2025 Accession number: [id number] Bone Density: Region BMD T-score Z-score Classification AP Spine(L1, L2, L3) 1.145 1.2 1.9 Normal Femoral Neck (Left) 0.751 -0.9 -0.1 Normal Total Hip (Left) 0.947 0.0 0.5 Normal Femoral Neck (Right) 0.871 0.2 1.0 Normal Total Hip (Right) 1.002 0.5 1.0 Normal Femoral Neck Mean 0.811 -0.3 0.4 Normal Total Hip Mean 0.975 0.3 0.7 Normal World Health Organization criteria for BMD impression classify patients as: Normal (T-score at or above -1.0), Osteopenia (T-score between -1.0 and -2.5), or Osteoporosis (T-score at or below -2.5). 10-year Fracture Risk: FRAX not reported because: All T-scores for Spine Total, Hip Total, Femoral Neck at or above -1.0 Clinical Information Provided by Patient: Smokes Has rheumatoid arthritis Patient maximum height was 55 Menopause Age: 50 No regular weight bearing exercise Drinks caffeinated beverages Onset of menses at age 8 Number of children 2 Impression: The patient has normal bone mass. The patient has risk factors, including: smoking. Discussion: BONE DENSITY IS ABOVE THE MINIMUM DESIRABLE LEVEL AT ALL SKELETAL SITES TESTED. This patient?s bone mineral density is above the minimum desirable level (T-score -1.0 or better) at all sites measured. The patient should follow a healthful lifestyle (good nutrition with adequate calcium and vitamin D, and appropriate weight-bearing exercise). Follow-Up: Consider repeating this study in 5 years or sooner if there is some new clinical indication. Reported by: SANYA on 06/02/2025 3:07:00 PM. Reviewed, dictated and finalized at location A.
--- OUTSIDE RECORDS SUMMARY | 2025-06-02 14:56 | XMS_ITS | Encounter Summary ---
Author Organization [facility] Address [address] [facility] [place] [address] Phone Care Team Providers Care Commercial Credit Portfolio Manager Name Role Phone Edu Laguna MD Primary Care Provider [phone] Encounter Details Date Type Department Care Team [...] week 01/23/2024 How often do you attend confucianism or anglican serv ices? Never 01/23/2024 Do you belong to any clubs o r organizations such as confucianism groups, unions, fraternal or athletic groups, or [...] Recorded Patient Health Questionnaire-2 Score 0 01/23/2024 [facility] - Occupational Stress Questionnaire Answer Date Recorded [...] place to sleep or slept in a snf (including now)? No 01/23/2024 Comments Unknown Sex [...] on filedocumented in this encounter Care Teams Commercial Credit Portfolio Manager Relationship Specialty Start Date End Date Edu Laguna MD PCP - General Internal Medicine 02/23/23 documented as of this encounter
--- OUTSIDE RECORDS SUMMARY | 2025-06-02 14:56 | XMS_ITS | Clinical Summary ---
Author Organization [place] [address] [facility] Address [address] [place] [address] Care Team Providers Care Assistant Inventory Manager Name Role Phone Edu Laguna MD Primary Care Provider [phone] Allergies Active Allergy Reactions Criticality Noted Date [...] 4 Active folic acid (FOLVITE) 1 mg tabletIndicatio ns:Rheumatoid arthritis, involving unspecified site, unspecified whether rheumatoid factor present (HCC),High risk medication use Take 1 tablet (1 mg total) by mouth daily 90 tablet 3 4 025 Active hydroxychloroqu ine (PLAQUENIL) 200 mg tabletIndicatio ns:Rheumatoid Arthritis Take 1 tablet (200 mg total) by mouth 2 (two) times a day 180 tablet 2 4 025 Active cilostazoL (PLETAL) 50 mg tablet 5 Active pregabalin (LYRICA) 150 mg capsule Take 1 capsule (150 mg total) by mouth 2 (two) times a day Active rosuvastatin (CRESTOR) 5 mg tablet 5 Active adalimumab-ryvk 40 mg/0.4 mL auto-injector, kit Inject 40 mg under the skin every 14 (fourteen) days 6 each 1 5 Active losartan (COZAAR) 25 mg tablet TAKE 1 TABLET (25 MG) BY ORAL ROUTE AT BEDTIME Active aspirin 81 mg chewable tablet Take 1 tablet (81 mg total) by mouth daily Active predniSONE (DELTASONE) 10 mg tabletIndicatio ns:Anti-inflamm atory Take 2 tablets (20 mg) by mouth daily for 7 days, THEN 1.5 tablets (15 mg) daily for 7 days, THEN 1 tablet (10 mg) daily for 7 days, THEN 0.5 tablets (5 mg) daily for 7 days. 35 tablet 5 025 Active methotrexate 2.5 mg tabletIndicatio ns:autoimmune disease Take 4 tablets (10 mg total) by mouth every 7 days 48 tablet 1 5 026 Active methotrexate 2.5 mg tabletIndicatio ns:autoimmune disease Take 3 tablets (7.5 mg total) by mouth every 7 days 36 tablet 1 5 025 Discontinued Active Problems Problem Noted Date Diagnosed Date Nicotine dependence 07/02/2023 Rheumatoid arthritis 07/02/2023 Encounters Date Type Department Care Team Description 05/12/2025 9:30 AM CDT Office Visit [facility] Rheumatology [address] [place] [address] [place] [id number] Misha Stuart MD Rheumatoid arthritis involving multiple sites with positive rheumatoid factor (HCC) (Primary Dx); High risk medication use; Tobacco dependence; Vaccine counseling 04/21/2025 10:00 AM CDT Lab [facility] Infectious Diseases [address] [place] [address] [address] [place] [address] 04/21/2025 9:52 AM CDT - 04/21/2025 11:59 PM CDT Hospital Encounter [address] [address] Rheumatoid arthritis involving multiple sites with positive rheumatoid factor (HCC); High risk medication use Discharge Disposition: Discharge to home or self care 04/21/2025 9:30 AM CDT Office Visit [facility] Rheumatology [address] [facility] [address] [place] [id number] Sherita Tripp MD Rheumatoid arthritis involving multiple sites with positive rheumatoid factor (HCC) (Primary Dx); High risk medication use 03/27/2025 Telephone [facility] Rheumatology [facility] 5th [place] [address] [place] [address] Sherita Tripp MD Med Refill from Last 3 Months Immunizations Immunization Administration [...] uit: Not Asked; Counseling Given: Not Answered [facility] Utilities Answer Date Recorded In the past 12 months has e [employer], gas, oil, or water [employer] threatened to shut off services in your home? No 05/12/2025 Social Connection and Isolation Panel [NHANES] A nswer Date Recorded In a typical week, how many times do you talk on the phone with family, friends, or neighbors? Once a week 05/12/2025 How often do you get together with friends or re latives? Once a week 05/12/2025 How often do you attend gnosticist or synagogue serv ices? Never 05/12/2025 Do you belong to any clubs o r organizations such as gnosticist groups, unions, fraternal or athletic groups, or school groups? No 05/12/2025 How often do you attend meet ings of the clubs or organizations you belong to? Not asked 05/12/2025 Are you , , di vorced, , never , or living with a partner? 05/12/2025 Overall Financial Resource Strain (CARDIA) Answe r Date Recorded How hard is it for you to pa y for the very basics like food, housing, medical care, and heating? Not hard at all 05/12/2025 PHQ-2 Answer Date Recorded Patient Health Questionnaire-2 Score 0 05/12/2025 [facility] Answer Date Recorded Do you feel stress - tense, restless, nervous, or anxious, or unable to sleep at night because your mind is troubled all the time - these days? Not at all 05/12/2025 Exercise Vital Sign Answer Date Recorde d On average, how many days pe r week do you engage in moderate to strenuous exercise (like a brisk walk)? 4 days 05/12/2025 On average, how many minutes do you engage in exercise at this level? 10 min 05/12/2025 Hunger Vital Sign Answer Date Recorded Within the past 12 months, y ou worried that your food would run out before you got the money to buy more. Never true 05/12/20 25 Within the past 12 months, t he food you bought just didn't last and you didn't have money to get more. Never true 05/12/2025 PRAPARE - Transportation Answer Date Re corded In the past 12 months, has l ack of transportation kept you from medical appointments or from getting medications? No 06/2025 In the past 12 months, has l ack of transportation kept you from meetings, work, or from getting things needed for daily living? No 05/12/2025 Housing Stability Vital Sign Answer Eric e [...] in a fdc (including now)? No 01/23/2024 Housing Stability Vital Sign Answer Eric e Recorded In the last 12 months, was t here a time when you were not able to pay the mortgage or rent on time? No 05/12/2025 In the past 12 months, how m any times have you moved where you were living? 1 05/12/2025 At any time in the past 12 m [facility], were you homeless or living in a fdc (including now)? No 05/12/2025 Comments Unknown Sex and Gender Information Value Date Recorded Sex Assigned at Not on file Legal Sex Female 3:24 PM CDT Gender Identity Not on file Sexual Orientation Not on file Obstetrics History Last Filed Vital Signs Vital Sign Reading Time Taken Comments Blood Pressure 144/78 05/12/2025 9:15 AM CDT Pulse 71 05/12/2025 9:15 AM CDT Temperature 36.4 C (97.6 F) 05/12/2025 9:15 AM CDT Respiratory Rate - - Oxygen Saturation 99% 05/12/2025 9:15 AM CDT Inhaled Oxygen Concentration - - Weight 75.8 kg (167 lb 3.2 oz) 05/12/2025 9:15 A M CDT Height 165.1 cm (5' 5) 05/12/2025 9:15 AM CDT Body Mass Index 27.82 05/12/2025 9:15 AM CDT Plan of Treatment Health Maintenance Due Date Last Done Comments Breast Cancer Screening-Mammogram 1975 Cervical Cancer Screening 1975 Colon Cancer Screening-Colonoscopy 1975 DTaP/Tdap/Td Vaccine (1 - Tdap) 1986 Regular Well Visit/Exam 18-64 1993 Zoster Vaccine (1 of 2) 1994 Influenza Vaccine (#1) 2025 10/21/2024, 2022 Depression Screening 05/12/2026 05/12/2025, 04/21/2025, 01/20/2025, Additional history exists Pneumococcal vaccine <65 Completed 10/01/2023 Hepatitis B Screening Completed 06/24/2024 Hepatitis C Screening Completed 06/24/2024, 023 Procedures Procedure Name Priority Date/Time Associated Diagnosis Comments EGFR Routine 04/21/2025 9:52 AM CDT High risk medication use Rheumatoid arthritis involving multiple sites with positive rheumatoid factor (HCC) DIFFERENTIAL AUTO Routine 04/21/2025 9:5 2 AM CDT High risk medication use Rheumatoid arthritis involving multiple sites with positive rheumatoid factor (HCC) CBC WITH AUTO DIFFERENTIAL Routine 04/21/2025 9:52 AM CDT High risk medication use Rheumatoid arthritis involving multiple sites with positive rheumatoid factor (HCC) COMPREHENSIVE METABOLIC PANEL Routine 04/21/2025 9:52 AM CDT High risk medication use Rheumatoid arthritis involving multiple sites with positive rheumatoid factor (HCC) ERYTHROCYTE SEDIMENTATION RATE Routine 04/21/2025 9:52 AM CDT Rheumatoid arthritis involving multiple sites with positive rheumatoid factor (HCC) CRP (ACUTE PHASE) Routine 04/21/2025 9:5 2 AM CDT Rheumatoid arthritis involving multiple sites with positive rheumatoid factor (HCC) HEPATITIS C ANTIBODY Routine 06/24/2024 11:43 AM CDT Rheumatoid arthritis involving multiple sites with positive rheumatoid factor (HCC) High risk medication use from Last 3 Months or Most Recently Relevant to Health Maintenance Results * eGFR (04/21/2025 9:52 AM CDT) eGFR >90 >=60 mL/min/1. 73 m2 Comment: Interpretive Data Reference Interval Normal >/= 90 mL/min/1.73m2 Mildly decreased* 60 - 89 mL/min/1.73m2 Mildly to moderately decreased 45 - 59 mL/min/1.73m2 Moderately to severely decreased 30 - 44 mL/min/1.73m2 Severely decreased 15 - 29 mL/min/1.73m2 Kidney Failure < 15 mL/min/1.73m2 *Relative to young adult level Estimated glomerular [...] interpretive data was last reviewed 2021. Blood 04/21/2025 9:52 AM CDT 04/21/2025 3:11 PM CDT us Sherita Tripp MD LAB BLOOD ORDERABLES F inal Result [facility] [address] [facility] [place] [address] * Differential, auto (04/21/2025 9:52 AM CDT) Neutrophil abs 3.97 1.50 - 6.50 K/cumm Imm gran abs 0.01 0.00 - 0.10 K/cumm [facility] Lymphocyte abs 1.67 0.80 - 3.30 K/cumm [facility] Monocyte abs 0.36 0.20 - 0.80 K/cumm [facility] Eosinophil abs 0.12 0.00 - 0.50 K/cumm [facility] Basophil abs 0.06 0.00 - 0.10 K/cumm [facility] Neutrophil pct 64.1 % [facility] Comment: Interpretive Data Percent cell count reference ranges are not reported, since discordance with absolute values may lead to misinterpretation of CBC data. Current Interpretive Data was last revised on 2018. Imm gran pct 0.2 % [facility] Comment: Interpretive Data Percent cell count reference ranges are not reported, since discordance with absolute values may lead to misinterpretation of CBC data. Current Interpretive Data was last revised on 2018. Lymphocyte pct 27.0 % [facility] Comment: Interpretive Data Percent cell count reference ranges are not reported, since discordance with absolute values may lead to misinterpretation of CBC data. Current Interpretive Data was last revised on 2018. Monocyte pct 5.8 % [facility] Comment: Interpretive Data Percent cell count reference ranges are not reported, since discordance with absolute values may lead to misinterpretation of CBC data. Current Interpretive Data was last revised on 2018. Eosinophil pct 1.9 % [facility] Comment: Interpretive Data Percent cell count reference ranges are not reported, since discordance with absolute values may lead to misinterpretation of CBC data. Current Interpretive Data was last revised on 2018. Basophil pct 1.0 % [facility] Comment: Interpretive Data Percent cell count reference ranges are not reported, since discordance with absolute values may lead to misinterpretation of CBC data. Current Interpretive Data was last revised on 2018. Blood 04/21/2025 9:52 AM CDT 04/21/2025 2:51 PM CDT Sherita Tripp MD LAB BLOOD ORDERABLES F inal Result Performing Organization Address [facility]/ZIP Co de Phone Number HELEN [address] [employer] [place] [address] * (ABNORMAL) CBC with auto differential (04/21/2025 9:52 AM CDT) Pathologist [facility] WBC 6.19 3.80 - 9.90 K/cumm Hgb 14.5 11.9 - 15.5 g/dL [facility] Hct 44.2 35.6 - 45.5 % [facility] Plt 243 150 - 400 K/cumm [facility] MPV 10.2 9.1 - 12.3 fL [facility] RBC 4.71 3.90 - 5.20 M/cumm [facility] MCV 93.8 81.3 - 96.4 fL [facility] MCH 30.8 27.1 - 33.3 pg [facility] MCHC 32.8 32.3 - 35.7 g/dL [facility] RDW CV 14.6 11.1 - 14.9 % [facility] RDW SD 50.4(H) 35.7 - 48.1 fL [facility] NRBC abs 0.00 0.00 - 0.01 K/cumm [facility] Blood 04/21/2025 9:52 AM CDT 04/21/2025 2:51 PM CDT Sherita Tripp MD LAB BLOOD ORDERABLES F inal Result Performing Organization Address [facility]/ZIP Co de Phone Number HELEN [address] [place] [address] * Erythrocyte sedimentation rate (04/21/2025 9:52 AM CDT) Erythrocyte sedimentation rate 12 1 - 30 mm/hr Blood 04/21/2025 9:52 AM CDT 04/21/2025 2:51 PM CDT Sherita Tripp MD LAB BLOOD ORDERABLES F inal Result Performing Organization Address [facility] Co de Phone Number HELEN [address] [place] [address] * CRP (acute phase) (04/21/2025 9:52 AM CDT) Pathologist [facility] CRP <3.0 <=10.0 mg/L Blood 04/21/2025 9:52 AM CDT 04/21/2025 2:51 PM CDT Sherita Tripp MD LAB BLOOD ORDERABLES F inal Result Performing Organization Address [facility] de Phone Number [facility] [address] [facility] [place] [address] * Comprehensive metabolic panel (04/21/2025 9:52 AM CDT) Pathologist [facility] Sodium 140 135 - 145 mmol/L Potassium, pl 4.1 3.3 - 4.9 mmol/L [facility] Chloride 105 97 - 110 mmol/L [facility] CO2 25 22 - 32 mmol/L [facility] Anion gap 10 2 - 15 mmol/L [facility] BUN 15 6 - 25 mg/dL [facility] Creatinine 0.74 0.60 - 1.10 mg/dL [facility] Glucose 78 70 - 199 mg/dL [facility] Comment: Interpretive Data Fasting glucose >/= 126 mg/dl is diagnostic for diabetes. Fasting is defined as no caloric intake [...] classification and Diagnosis of Diabetes Diabetes Care 2021; 46: S19-S40. Current interpretive data was last revised 2022. Calcium 9.4 8.5 - 10.3 mg/dL [facility] Bilirubin, total 0.3 0.1 - 1.2 mg/dL [facility] Protein, pl 6.9 6.5 - 8.5 g/dL [facility] Albumin 4.2 3.5 - 5.0 g/dL [facility] Alk phos 103 40 - 130 Units/L [facility] ALT 25 7 - 45 Units/L [facility] AST 30 10 - 45 Units/L [facility] Blood 04/21/2025 9:52 AM CDT 04/21/2025 2:51 PM CDT Sherita Tripp MD LAB BLOOD ORDERABLES F inal Result Performing Organization Address [facility] de Phone Number [facility] [address] [employer] [place] [address] * Hepatitis C antibody Blood (06/24/2024 11:43 [...] ERAL ORDERABLES Final Result Performing Organization Address [facility] Co de Phone Number [facility] [address] [employer] [place], [place] [phone] from Last 3 Months or Most Recently Relevant to Health Maintenance Insurance [employer] [facility] [employer]NA [facility] Care Teams Assistant Inventory Manager Relationship Specialty Start Date End Date Edu Laguna MD PCP - General Internal Medicine 02/23/23
--- OUTSIDE RECORDS SUMMARY | 2025-06-02 14:56 | XMS_ITS | Encounter Summary ---
Author Organization [facility] Address [address] [place] [address] Phone Care Team Providers Care Tunnel Inspector Name Role Phone Edu Laguna MD Primary Care Provider [phone] Encounter Details Date Type Department Care Team [...] week 01/23/2024 How often do you attend denominational or protestant serv ices? Never 01/23/2024 Do you belong to any clubs o r organizations such as denominational groups, unions, fraternal or athletic groups, or [...] Recorded Patient Health Questionnaire-2 Score 0 01/23/2024 [facility] - Occupational Stress Questionnaire Answer Date [...] on filedocumented in this encounter Care Teams Tunnel Inspector Relationship Specialty Start Date End Date Edu Laguna MD PCP - General Internal Medicine 02/23/23 documented as of this encounter
--- OUTSIDE RECORDS SUMMARY | 2025-06-02 14:56 | XMS_ITS | Encounter Summary ---
Author Organization [facility] Address [facility] [place] [address] Care Team Providers Care Clinical Training Coordinator Name Role Phone Edu Laguna MD Primary Care Provider [phone] Encounter Details Date Type Department Care Team (Late st Contact Info) Description 11/30/2023 [employer] Message Enc [address] [address] [place], [address] [place] [phone] Visit Follow Up Social History Tobacco Use Types Packs/Day Years Used Date Smoking Tobacco: Every Day Cigarettes 1 30 Smokeless Tobacco: Never Alcohol Use Standard Drinks/Week Comments Never 0 (1 standard drink = 0.6 oz pur e alcohol) Comments Unknown Sex and Gender Information Value Date Recorded Sex Assigned at Female 12/29/2024 8:24 AM VERIFIER Legal Sex Female 5:31 PM CDT Gender Identity Not on file Sexual Orientation Not on file documented as of this encounter Plan of Treatment Not on file documented as of this encounter Visit Diagnoses Not on filedocumented in this encounter Care Teams Clinical Training Coordinator Relationship Specialty Start Date End Date Edu Laguna MD [address] [place] [address] PCP - General INTERNAL MEDICINE 11/12/23 documented as of this encounter
--- OUTSIDE RECORDS SUMMARY | 2025-06-02 14:56 | XMS_ITS | Clinical Summary ---
Author Organization [facility] Address [address] [place] [address] Care Team Providers Care Vacuum Form Operator Name Role Phone Edu Laguna MD Primary Care Provider [phone] Allergies Active Allergy Reactions Criticality Noted Date [...] tablet (4 mg total) by mouth daily. 02/17/202 5 Active Active Problems Problem Noted Date Diagnosed Date Acute right hip pain 09/30/2024 Tear of left acetabular labrum, subsequent encou nter 08/18/2024 Fibromyalgia 08/13/2024 Primary osteoarthritis of left knee 11/30/2023 Seropositive erosive rheumatoid arthritis (CMS/H CC HHS/HCC) 07/02/2023 08/01/2024 Overview (08/13/2024): Sees Helper Driver Sherita Tripp MD at [facility] in [place], [place] Nicotine dependence 07/02/2023 Family History Medical History Relation Comments Cancer [...] Sex Assigned at Female 12/29/2024 8:24 AM HEATER ENGINEER HELPER Legal Sex Female 5:31 PM CDT Gender Identity Not on file Sexual Orientation Not on file Last Filed Vital Signs Vital Sign Reading Time Taken Comments Blood Pressure - - Pulse - - Temperature - - Respiratory Rate - - Oxygen Saturation - - Inhaled Oxygen Concentration - - Weight 72.6 kg (160 lb) 12/29/2024 8:29 AM HEATER ENGINEER HELPER Height 165.1 cm (5' 5) 12/29/2024 8:29 AM HEATER ENGINEER HELPER Body Mass Index 26.63 12/29/2024 8:29 AM HEATER ENGINEER HELPER Plan of Treatment Health Maintenance Due Date [...] (2023-2 5 season) 2024 10/05/2021, 02/07/2021, 01/10/2021 Lung [...] patient's age to complete this topic Insurance T AET Care Teams Vacuum Form Operator Relationship Specialty Start Date End Date Edu Laguna MD [address] [place] [address] PCP - General INTERNAL MEDICINE 11/12/23
--- OUTSIDE RECORDS SUMMARY | 2025-06-02 14:56 | XMS_ITS | Referral Summary ---
Author Organization [facility] [address] [facility] Address [address] [place] [address] Care Team Providers Care Nozzleman Name Role Phone Edu Laguna MD Primary Care Provider [phone] Encounters Date Type Department Care Team Description 05/12/2025 9:30 AM CDT Office Visit [facility] Rheumatology [address] [place] [address] [address] [place] [phone] Misha Stuart MD Rheumatoid arthritis involving multiple sites with positive rheumatoid factor (HCC) (Primary Dx); High risk medication use; Tobacco dependence; Vaccine counseling 04/21/2025 9:52 AM CDT - 04/21/2025 11:59 PM CDT Hospital Encounter [address] [address] Rheumatoid arthritis involving multiple sites with positive rheumatoid factor (HCC); High risk medication use Discharge Disposition: Discharge to home or self care 04/21/2025 10:00 AM CDT Lab [facility] Infectious Diseases [address] [place] [address] [address] [place] [phone] 04/21/2025 9:30 AM CDT Office Visit [facility] Rheumatology [address] [place] [address] [address] [place] [phone] Sherita Tripp MD Rheumatoid arthritis involving multiple sites with positive rheumatoid factor (HCC) (Primary Dx); High risk medication use 03/27/[address] [facility] Rheumatology [address] [place] [address] 5th [place] [address] [place] [address] Sherita Tripp MD Med Refill from Last 3 Months Allergies Active Allergy [...] uit: Not Asked; Counseling Given: Not Answered [facility] Utilities Answer Date Recorded In the past 12 months has [employer], gas, oil, or water [employer] threatened to shut off services in your home? No 05/12/2025 Social Connection and Isolation Panel [NHANES] A nswer Date Recorded In a typical week, how many times do you talk on the phone with family, friends, or neighbors? Once a week 05/12/2025 How often do you get together with friends or re latives? Once a week 05/12/2025 How often do you attend yarsanism or mandaen serv ices? Never 05/12/2025 Do you belong to any clubs o r organizations such as yarsanism groups, unions, fraternal or athletic groups, or [...] Recorded Patient Health Questionnaire-2 Score 0 05/12/2025 [facility] [place] of Occupat ional Health - Occupational Stress [...] in a halfway (including now)? No 01/23/2024 Housing Stability Vital Sign Answer Eric e Recorded In the last 12 months, was t here a time when you were not able to pay the mortgage or rent on time? No 05/12/2025 In the past 12 months, how m any times have you moved where you were living? 1 05/12/2025 At any time in the past 12 m [facility], were you homeless or living in a halfway (including now)? No 05/12/2025 Comments Unknown Sex [...] 05/12/2025 9:15 AM CDT Plan of Treatment Not on [...] MD LAB BLOOD ORDERABLES F inal Result [facility] [address] Department [place] [address] * Differential, auto (04/21/2025 9:52 AM CDT) Neutrophil abs 3.97 1.50 - 6.50 K/cumm Imm gran abs 0.01 0.00 - 0.10 K/cumm [facility] Lymphocyte abs 1.67 0.80 - 3.30 K/cumm [facility] Monocyte abs 0.36 0.20 - 0.80 K/cumm [facility] Eosinophil abs 0.12 0.00 - 0.50 K/cumm [facility] Basophil abs 0.06 0.00 - 0.10 K/cumm [facility] Neutrophil pct 64.1 % [facility] Comment: Interpretive Data Percent cell count reference ranges are not reported, since discordance with absolute values may lead to misinterpretation of CBC data. Current Interpretive Data was last revised on 2018. Imm gran pct 0.2 % [facility] Comment: Interpretive Data Percent cell count reference ranges are not reported, since discordance with absolute values may lead to misinterpretation of CBC data. Current Interpretive Data was last revised on 2018. Lymphocyte pct 27.0 % [facility] Comment: Interpretive Data Percent cell count reference ranges are not reported, since discordance with absolute values may lead to misinterpretation of CBC data. Current Interpretive Data was last revised on 2018. Monocyte pct 5.8 % [facility] Comment: Interpretive Data Percent cell count reference ranges are not reported, since discordance with absolute values may lead to misinterpretation of CBC data. Current Interpretive Data was last revised on 2018. Eosinophil pct 1.9 % [facility] Comment: Interpretive Data Percent cell count reference ranges are not reported, since discordance with absolute values may lead to misinterpretation of CBC data. Current Interpretive Data was last revised on 2018. Basophil pct 1.0 % [facility] Comment: Interpretive Data Percent cell count reference ranges are not reported, since discordance with absolute values may lead to misinterpretation of CBC data. Current Interpretive Data was last revised on 2018. Blood 04/21/2025 9:52 AM CDT 04/21/2025 2:51 PM CDT us Sherita Tripp MD LAB BLOOD ORDERABLES F inal Result [facility] [address] Department [place] [address] * (ABNORMAL) CBC with auto differential (04/21/2025 9:52 AM CDT) WBC 6.19 3.80 - 9.90 K/cumm Hgb 14.5 11.9 - 15.5 g/dL [facility] Hct 44.2 35.6 - 45.5 % [facility] Plt 243 150 - 400 K/cumm [facility] MPV 10.2 9.1 - 12.3 fL [facility] RBC 4.71 3.90 - 5.20 M/cumm [facility] MCV 93.8 81.3 - 96.4 fL [facility] MCH 30.8 27.1 - 33.3 pg [facility] MCHC 32.8 32.3 - 35.7 g/dL [facility] RDW CV 14.6 11.1 - 14.9 % [facility] RDW SD 50.4(H) 35.7 - 48.1 fL [facility] NRBC abs 0.00 0.00 - 0.01 K/cumm [facility] Blood 04/21/2025 9:52 AM CDT 04/21/2025 2:51 PM CDT Sherita Tripp MD LAB BLOOD ORDERABLES F inal Result Performing Organization Address [facility] Co de Phone Number HELEN [address] [employer] [place], [place] [id number] * Erythrocyte sedimentation rate (04/21/2025 9:52 AM CDT) Erythrocyte sedimentation rate 12 1 - 30 mm/hr Blood 04/21/2025 9:52 AM CDT 04/21/2025 2:51 PM CDT Sherita Tripp MD LAB BLOOD ORDERABLES F inal Result Performing Organization Address [facility] Co de Phone Number [facility] [address] [place] [address] * CRP (acute phase) (04/21/2025 9:52 AM CDT) CRP <3.0 <=10.0 mg/L Blood 04/21/2025 9:52 AM CDT 04/21/2025 2:51 PM CDT Sherita Tripp MD LAB BLOOD [place] [address] [address] Department [place] [address] * Comprehensive metabolic panel (04/21/2025 9:52 AM CDT) Sodium 140 135 - 145 mmol/L Potassium, pl 4.1 3.3 - 4.9 mmol/L [facility] Chloride 105 97 - 110 mmol/L [facility] CO2 25 22 - 32 mmol/L [facility] Anion gap 10 2 - 15 mmol/L [facility] BUN 15 6 - 25 mg/dL [facility] Creatinine 0.74 0.60 - 1.10 mg/dL [facility] Glucose 78 70 - 199 mg/dL [facility] Comment: Interpretive Data Fasting glucose >/= 126 [...] ORDERABLES F inal Result Performing Organization Address City/[facility] Co de Phone Number [facility]EN SPEAR [address] Department [place] [address] * Hepatitis C antibody Blood (06/24/2024 11:43 [...] ERAL ORDERABLES Final Result Performing Organization Address [facility] Co de Phone Number HELEN SPEAR [address] Department [place] [address] from Last 3 Months or Most Recently Relevant to Health Maintenance [facility] AETNA [facility] Care Teams Nozzleman Relationship Specialty Start Date End Date Edu Laguna MD PCP - General Internal Medicine 02/23/23
== END 2025-06-02 14:47 | disposition home or self-care (01) ==
LOC: CHSIMG 14:48
PROVIDERS: PCP Internal Medicine; Visit Provider Internal Medicine
DX: Z78.0 Asymptomatic menopausal state (principal)
CPT/HCPCS: 77080

== ENCOUNTER 2025-07-19 12:37 | Emergency (ER) | payer OTHER, SELFPAY ==
--- NOTE | ~2025-07-19 | XR_ITS ---
EXAMINATION: XR ankle RT min 3V, 07/19/2025 12:50 CDT HISTORY: Lateral Rt. ankle pain x1 year, NKI COMPARISON: No comparisons available. Findings: No acute fracture or malalignment. No significant degenerative changes. Soft tissues unremarkable. Impression: No acute fracture or malalignment. Reviewed, dictated and finalized at location A. Impression: No acute fracture or malalignment.
[2025-07-19 12:37] VITALS: BP 147/82; PULSE 69; RESP 17; TEMP 36.4; O2SAT 95
--- OUTSIDE RECORDS SUMMARY | 2025-07-19 12:38 | XMS_ITS | Clinical Summary ---
Author Organization [place] [id number] [facility] Address [address] [place] [address] Care Team Providers Care Pool Table Operator Name Role Phone Edu Laguna MD Primary Care Provider [phone] Allergies Active Allergy Reactions Criticality Noted Date [...] 2 (two) times a day 4 Active cilostazoL (PLETAL) 50 mg tablet 5 Active pregabalin (LYRICA) 150 mg capsule Take 1 capsule (150 mg total) by mouth 2 (two) times a day Active rosuvastatin (CRESTOR) 5 mg tablet 5 Active losartan (COZAAR) 25 mg tablet TAKE 1 TABLET (25 MG) BY ORAL ROUTE AT BEDTIME Active aspirin 81 mg chewable tablet Take 1 tablet (81 mg total) by mouth daily Active clopidogreL (PLAVIX) 75 mg tablet 5 Active methotrexate 2.5 mg tabletIndications:R heumatoid Arthritis,autoimmun e disease Take 4 tablets (10 mg total) by mouth every 7 days 48 tablet 1 5 12/07/19 26 Active folic acid (FOLVITE) 1 mg tabletIndications:H igh risk medication use,Osteoarthritis, unspecified osteoarthritis type, unspecified site Take 1 tablet (1 mg total) by mouth daily 90 tablet 3 5 06/10/20 26 Active adalimumab-ryvk 40 mg/0.4 mL auto-injector, kit Inject 40 mg under the skin every 14 (fourteen) days 6 each 1 5 Active Active Problems Problem Noted Date Diagnosed Date Nicotine dependence 07/02/2023 Rheumatoid arthritis 07/02/2023 Encounters Date Type Department Care Team Description 06/10/2025 3:30 PM CDT Office Visit [facility] Medicine Rheumatology [address] [place] [phone] Misha Stuart MD Rheumatoid arthritis involving multiple sites with positive rheumatoid factor (HCC) (Primary Dx); High risk medication use; Osteoarthritis, unspecified osteoarthritis type, unspecified site; Tobacco dependence; Vaccine counseling 05/12/2025 9:30 AM CDT [facility] [address] [place] [phone] Misha Stuart MD Rheumatoid arthritis involving multiple sites with positive rheumatoid factor (HCC) (Primary Dx); High risk medication use; Tobacco dependence; Vaccine counseling 04/21/2025 10:00 AM CDT Lab [facility] Medicine Infectious Diseases [address] [place] [phone] 04/21/2025 9:52 AM CDT - 04/21/2025 11:59 PM CDT Hospital Encounter [address] [address] Rheumatoid arthritis involving multiple sites with positive rheumatoid factor (HCC); High risk medication use Discharge Disposition: Discharge to home or self care 04/21/2025 9:30 AM CDT [facility] [address] [place] [phone] Sherita Tripp MD Rheumatoid arthritis involving multiple sites with positive rheumatoid factor (HCC) (Primary Dx); High risk medication use from Last 3 Months Immunizations Immunization Administration [...] uit: Not Asked; Counseling Given: Not Answered [facility] Utilities Answer Date Recorded In the past 12 months has th e [employer], gas, oil, or water company threatened to shut off services in your home? No 05/12/2025 Social Connection and Isolation Panel Answer Date Recorded In a typical week, how many times do you talk on the phone with family, friends, or neighbors? Once a week 05/12/2025 How often do you get together with friends or re latives? Once a week 05/12/2025 How often do you attend jain or lutheran serv ices? Never 05/12/2025 Do you belong to any clubs o r organizations such as jain groups, unions, fraternal or athletic groups, or [...] Recorded Patient Health Questionnaire-2 Score 0 05/12/2025 [facility] of Occupat ional Health - Occupational Stress [...] place to sleep or slept in a retirement (including now)? No 01/23/2024 Housing Stability Vital Sign Answer Eric e Recorded In the last 12 months, was t here a time when you were not able to pay the mortgage or rent on time? No 05/12/2025 In the past 12 months, how m any times have you moved where you were living? 1 05/12/2025 At any time in the past 12 m [facility], were you homeless or living in a retirement (including now)? No 05/12/2025 Comments Unknown Sex and Gender Information Value Date Recorded Sex Assigned at Not on file Legal Sex Female 3:24 PM CDT Gender Identity Not on file Sexual Orientation Not on file Obstetrics History Last Filed Vital Signs Vital Sign Reading Time Taken Comments Blood Pressure 172/82 06/10/2025 3:13 PM CDT Pulse 72 06/10/2025 3:13 PM CDT Temperature 36.6 C (97.8 F) 06/10/2025 3:13 PM CDT Respiratory Rate - - Oxygen Saturation 95% 06/10/2025 3:13 PM CDT Inhaled Oxygen Concentration - - Weight 79.2 kg (174 lb 9.6 oz) 06/10/2025 3:13 P M CDT Height 165.1 cm (5' 5) 06/10/2025 3:13 PM CDT Body Mass Index 29.05 06/10/2025 3:13 PM CDT Plan of Treatment Health Maintenance Due [...] BLOOD ORDERABLES F inal Result [facility] [address] Department [place] [address] * Differential, auto (04/21/2025 9:52 AM CDT) Neutrophil abs 3.97 1.50 - 6.50 K/cumm Imm gran abs 0.01 0.00 - 0.10 K/cumm [facility] Lymphocyte abs 1.67 0.80 - 3.30 K/cumm [facility] Monocyte abs 0.36 0.20 - 0.80 K/cumm [facility] Eosinophil abs 0.12 0.00 - 0.50 K/cumm [facility] Basophil abs 0.06 0.00 - 0.10 K/cumm [facility] Neutrophil pct 64.1 % [facility] Comment: Interpretive Data Percent cell count reference ranges are not reported, since discordance with absolute values may lead to misinterpretation of CBC data. Current Interpretive Data was last revised on 2018. Imm gran pct 0.2 % [facility] Comment: Interpretive Data Percent cell count reference ranges are not reported, since discordance with absolute values may lead to misinterpretation of CBC data. Current Interpretive Data was last revised on 2018. Lymphocyte pct 27.0 % [facility] Comment: Interpretive Data Percent cell count reference ranges are not reported, since discordance with absolute values may lead to misinterpretation of CBC data. Current Interpretive Data was last revised on 2018. Monocyte pct 5.8 % [facility] Comment: Interpretive Data Percent cell count reference ranges are not reported, since discordance with absolute values may lead to misinterpretation of CBC data. Current Interpretive Data was last revised on 2018. Eosinophil pct 1.9 % [facility] Comment: Interpretive Data Percent cell count reference ranges are not reported, since discordance with absolute values may lead to misinterpretation of CBC data. Current Interpretive Data was last revised on 2018. Basophil pct 1.0 % [facility] Comment: Interpretive Data Percent cell count reference ranges are not reported, since discordance with absolute values may lead to misinterpretation of CBC data. Current Interpretive Data was last revised on 2018. Blood 04/21/2025 9:52 AM CDT 04/21/2025 2:51 PM CDT us Sherita Tripp MD LAB BLOOD ORDERABLES F inal Result [facility] [address] [place] [address] * (ABNORMAL) CBC with auto differential (04/21/2025 9:52 AM CDT) Pathologist [facility] WBC 6.19 3.80 - 9.90 K/cumm Hgb 14.5 11.9 - 15.5 g/dL [facility] Hct 44.2 35.6 - 45.5 % [facility] Plt 243 150 - 400 K/cumm [facility] MPV 10.2 9.1 - 12.3 fL [facility] RBC 4.71 3.90 - 5.20 M/cumm [facility] MCV 93.8 81.3 - 96.4 fL [facility] MCH 30.8 27.1 - 33.3 pg [facility] MCHC 32.8 32.3 - 35.7 g/dL [facility] RDW CV 14.6 11.1 - 14.9 % [facility] RDW SD 50.4(H) 35.7 - 48.1 fL [facility] NRBC abs 0.00 0.00 - 0.01 K/cumm [facility] Blood 04/21/2025 9:52 AM CDT 04/21/2025 2:51 PM CDT Sherita Tripp MD LAB BLOOD ORDERABLES F inal Result Performing Organization Address [facility] Co de Phone Number HELEN SPEAR [phone] [address] [place] [address] * Erythrocyte sedimentation rate (04/21/2025 9:52 AM CDT) [facility] Erythrocyte sedimentation rate 12 1 - 30 mm/hr Blood 04/21/2025 9:52 AM CDT 04/21/2025 2:51 PM CDT Sherita Tripp MD LAB BLOOD ORDERABLES F inal Result Performing Organization Address City/[facility]/ZIP Co de Phone Number HELEN SPEAR [address] Department [place] [address] * CRP (acute phase) (04/21/2025 9:52 AM CDT) CRP <3.0 <=10.0 mg/L Blood 04/21/2025 9:52 AM CDT 04/21/2025 2:51 PM CDT us Sherita Tripp MD LAB BLOOD ORDERABLES F inal Result [facility] [address] [address] Department [place] [address] * Comprehensive metabolic panel (04/21/2025 9:52 AM [...] CH AST 30 10 - 45 Units/L [facility] Blood 04/21/2025 9:52 AM CDT 04/21/2025 2:51 PM CDT Sherita Tripp MD LAB BLOOD ORDERABLES F inal Result Performing Organization Address [facility] de Phone Number HELEN [address] [address] [place] [address] * Hepatitis C antibody Blood (06/24/2024 11:43 [...] ERAL ORDERABLES Final Result Performing Organization Address [facility] de Phone Number HELEN [address] [place] [address] from Last 3 Months or Most Recently Relevant to Health Maintenance Insurance AETNA [facility] AETNA [facility] Care Teams Pool Table Operator Relationship Specialty Start Date End Date Edu Laguna MD PCP - General Internal Medicine 02/23/23
--- OUTSIDE RECORDS SUMMARY | 2025-07-19 12:38 | XMS_ITS | Encounter Summary ---
Author Organization [facility] Address [address] [place] [address] Phone Care Team Providers Care Chief Nurse Executive Name Role Phone Edu Laguna MD Primary Care Provider [phone] Encounter Details Date Type Department Care Team (Late st Contact Info) Description 12/26/2024 Orders Only [facility] Scanning, Provider Social History Tobacco Use Types Packs/Day Years Used Date Smoking Tobacco: Every Day Cigarettes Smokeless Tobacco: Never Social Connection and Isolation Panel Answer Date Recorded In a typical week, how many times do you talk on the phone with family, friends, or neighbors? Once a week 01/23/2024 How often do you get together with friends or re latives? Once a week 01/23/2024 How often do you attend religious or presybeterian serv ices? Never 01/23/2024 Do you belong to any clubs o r organizations such as religious groups, unions, fraternal or athletic groups, or [...] Recorded Patient Health Questionnaire-2 Score 0 01/23/2024 [facility] of Occupat ional Health - Occupational Stress [...] place to sleep or slept in a fci (including now)? No 01/23/2024 Comments Unknown Sex [...] on filedocumented in this encounter Care Teams Chief Nurse Executive Relationship Specialty Start Date End Date Edu Laguna MD PCP - General Internal Medicine 02/23/23 documented as of this encounter
--- OUTSIDE RECORDS SUMMARY | 2025-07-19 12:38 | XMS_ITS | Encounter Summary ---
Author Organization [facility] Address [facility] [place] [address] Care Team Providers Care Fha Underwriter Name Role Phone Edu Laguna MD Primary Care Provider [phone] Encounter Details Date Type Department Care Team (Late st Contact Info) Description 11/30/2023 [email or web address] Message Enc [address] [address] [place] [place], [address] [place] [phone] Visit Follow Up Social History Tobacco Use Types Packs/Day Years Used Date Smoking Tobacco: Every Day Cigarettes 1 30 Smokeless Tobacco: Never Alcohol Use Standard Drinks/Week Comments Never 0 (1 standard drink = 0.6 oz pur e alcohol) Comments Unknown Sex and Gender Information Value Date Recorded Sex Assigned at Female 12/29/2024 8:24 AM [employer] LOADER Legal Sex Female 5:31 PM CDT Gender Identity Not on file Sexual Orientation Not on file documented as of this encounter Plan of Treatment Not on file documented as of this encounter Visit Diagnoses Not on filedocumented in this encounter Care Teams Fha Underwriter Relationship Specialty Start Date End Date Edu Laguna MD [address] [place] [address] PCP - General INTERNAL MEDICINE 11/12/23 documented as of this encounter
--- OUTSIDE RECORDS SUMMARY | 2025-07-19 12:38 | XMS_ITS | Encounter Summary ---
Author Organization [facility] Address [address] [place] [address] Phone Care Team Providers Care Spa Experience Coordinator Name Role Phone Edu Laguna MD Primary Care Provider [phone] Encounter Details Date Type Department Care Team [...] week 01/23/2024 How often do you attend episcopalian or yazidi serv ices? Never 01/23/2024 Do you belong [...] Recorded Patient Health Questionnaire-2 Score 0 01/23/2024 [facility] - Occupational [...] on filedocumented in this encounter Care Teams Spa Experience Coordinator Relationship Specialty Start Date End Date Edu Laguna MD PCP - General Internal Medicine 02/23/23 documented as of this encounter
--- NOTE | 2025-07-19 12:52 | ED.EXTPRO ---
HPI - Extremity Problem General Chief complaint: Extremity Problem,Nontraumatic Stated complaint: right ankle pain Time Seen by Provider: 07/19/25 12:44 Source: patient Mode of arrival: ambulatory Limitations: no limitations History of Present Illness HPI Narrative: 50-year-old female smoker history of rheumatoid arthritis on methotrexate / Humira, peripheral vascular disease of left lower extremity, chronic low back presents to the ED with -- right ankle pain. The pain is worse on walking. No swelling noted. The patient has been evaluated in the past for the ankle pain. No history of trauma. MD Complaint: other ( Right ankle pain) Onset (ago): week(s) Pain Consistency: intermittent Location: right Quality: aching Radiation: none Relieving factors: immobilization Exacerbating factors: range of motion and weight bearing Associated symptoms: denies other symptoms Related Data Home Medications ?Medication ?Instructions ?Recorded ?Confirmed ?Last Taken ?Type escitalopram oxalate 10 mg tablet 10 mg PO DAILY 06/10/22 01/30/23 Unknown History gabapentin 300 mg capsule 300 mg PO DAILY 06/10/22 01/30/23 06/09/22 20:00 History meloxicam 15 mg tablet 15 mg PO DAILY 06/10/22 01/30/23 08/21/22 History Allergies Allergy/AdvReac Type Severity Reaction Status Date / Time Penicillins Allergy Intermediate Nausea and Verified 07/19/25 12:50 Vomiting azithromycin Allergy Nausea and Verified 07/19/25 12:50 Vomiting Review of Systems Review of Systems: All systems reviewed & are unremarkable except as noted in HPI and below Constitutional: Constitutional: Reports as per HPI and Reports no additional constitutional complaints Eyes: Eyes: Reports as per HPI and Reports no additional eye complaints ENT: Reports system reviewed and no additional complaints, except as documented and Reports as per HPI Cardiovascular: Cardiovascular: Reports as per HPI and Reports no additional cardiovascular complaints Respiratory: Respiratory: Reports as per HPI and Reports no additional respiratory complaints Gastrointestinal: Gastrointestinal: Reports as per HPI and Reports no additional gastrointestinal complaints Genitourinary: Genitourinary: Reports no additional female genitourinary complaints and Reports as per HPI Musculoskeletal: Comments: chronic right wrist pain and deformity from rheumatoid arthritis. no small joint involvement. Prolonged morning stiffness. Currently has right ankle pain. No swelling. No history of trauma. Integumentary/Breasts: Skin/Breast: Reports system reviewed and no additional complaints, except as docu and Reports as per HPI Neurologic: Reports system reviewed and no additional complaints, except as documented and Reports as per HPI Psychiatric: Psychiatric: Reports no additional psychiatric complaints and Reports as per HPI Endocrine: Endocrine: Reports no additional endocrine complaints and Reports as per HPI Hematologic/Lymphatic: Hematologic/Lymphatic: Reports no additional hematologic/lymphatic complaints and Reports as per HPI Allergic/Immunologic: Allergic/Immunologic: Reports no additional allergic/immunologic complaints and Reports as per HPI [facility] Past Medical History Medical History Current smoker Rheumatoid arthritis with rheumatoid factor of multiple sites without organ or systems involvement Left shoulder pain Surgical History Surgical History No pertinent past surgical history Family History Family History Other Depression Diabetes mellitus Heart disease Hypertension Social History Social History Smoking status: Current every day smoker Tobacco type: cigarettes Alcohol intake: never Substance use: never Substance use type: does not use Lack of Transportation: No Lack of Food: Never True Current Housing: I Have Housing Concerned About Future Housing: No Difficulty Paying Gas/Electric Bills: No Difficulty Paying for Meds: No Currently Unemployed: No Education: Decline to Answer Difficulty w/ Childcare or Family Care: No Living arrangements: with family Exam Narrative: Vitals are stable. Const: General: no acute distress Orientation/consciousness: patient oriented x3 Limitations: no limitations HENMT: Head: normal to inspection Ears: external ears normal Face/Nose/Sinus: Normal external nose present Face and sinus: normal facial exam Mouth: Yes Normal oral and palatal mucosa present Throat: posterior oropharynx normal Eyes: Conjunctivae: conjunctivae normal Pupils: Equal, round and reactive pupils present EOM: EOMs intact bilaterally Direct Ophthalmoscopy: no photophobia Neck: Neck: normal visual inspection, no lymphadenopathy and no meningeal signs Chest: Chest palpation & inspection: normal inspection of the chest and abnormal inspection of the chest Resp: Effort & Inspection: normal respiratory effort Auscultation: clear to auscultation bilaterally Cardio: Rate: regular rate Rhythm: regular rhythm GI: GI Palp: Yes Soft to palpation Auscultation: normal bowel sounds Other: No tenderness/ rigidity /rebound. : General: Yes no CVA tenderness Back/Spine/Pelvis: Back: no CVA tenderness Skin: General skin exam: normal color Rashes: no rashes Wounds: no wounds Neuro: General: patient oriented x3, moves all extremities, no meningeal signs, no focal motor deficits and CN's II-XI intact bilaterally Cranial nerves: Yes Nystagmus not present Speech: normal speech Extrem: General: normal to inspection Other: Right wrist is swollen and deformed. Has chronic wrist pain and stiffness. Right ankle-- no tenderness. No swelling. Normal range of motion. Complains of pain around lateral malleolus. Psych: Mental Status: mental status grossly normal Affect: Anxious affect present Attitude: cooperative Course Course Emergency Course: Right ankle pain-- X-ray does not show any acute findings. Vital Signs Vital signs: Vital Signs Temperature 36.4 C L 07/19/25 12:37 Pulse Rate 69 07/19/25 12:37 Respiratory Rate 07/19/25 12:37 Blood Pressure 147/82 H 07/19/25 12:37 Pulse Oximetry 07/19/25 12:37 Oxygen Delivery Room Air 07/19/25 12:37 Temperature 36.4 C L 07/19/25 12:37 Pulse Rate 69 07/19/25 12:37 Respiratory Rate 07/19/25 12:37 Blood Pressure 147/82 H 07/19/25 12:37 Pulse Oximetry 07/19/25 12:37 Oxygen Delivery Room Air 07/19/25 12:37 MDM - Extremity (Nontraumatic) MDM Narrative Medical decision making narrative: Right ankle pain Discharge Plan Discharge Clinical Impression: Ankle pain, right Qualifiers: Chronicity: chronic Qualified Code(s): M25.571 - Pain in right ankle and joints of right foot Rheumatoid arthritis Qualifiers: Rheumatoid arthritis location: wrist Rheumatoid factor presence: with rheumatoid factor Laterality: right Qualified Code(s): M05.731 - Rheumatoid arthritis with rheumatoid factor of right wrist without organ or systems involvement Patient Disposition: Home Condition: Stable Instructions: Antibiotic Form, Arthralgia (ED) Patient Language: Greenlandic Prescriptions: No Action meloxicam 15 mg tablet 15 mg PO DAILY gabapentin 300 mg capsule 300 mg PO DAILY escitalopram oxalate 10 mg tablet 10 mg PO DAILY ibuprofen 800 mg tablet 800 mg PO TID Qty: 20 0RF omeprazole magnesium [Prilosec OTC] 20 mg tablet,delayed release (DR/EC) 20 mg PO BID Qty: 20 0RF tramadol 50 mg tablet 50 mg PO BID PRN (Reason: pain) Qty: 4 0RF hydroxychloroquine [Plaquenil] 200 mg tablet 400 mg PO DAILY Qty: 90 1RF prednisone 2.5 mg tablet 2.5 mg PO DAILY Qty: 40 0RF Rx Instructions: take 2 tabs BID for 5 days, 1 tab BID for 5 days, 1 tab qd for 5 days and then 1 tab qod for 5 doses and stop Follow-up/Referrals: Edu Laguna MD [Primary Care Provider, Internal Medicine] Time of Disposition: 13:32
--- OUTSIDE RECORDS SUMMARY | 2025-07-19 13:10 | XMS_ITS | Encounter Summary ---
Author Organization [facility] Address [facility] [place] [address] Care Team Providers Care Setter Juice Packaging Machines Name Role Phone Edu Laguna MD Primary Care Provider Encounter Details Date Type Department Care Team (Late st Contact Info) Description 11/30/2023 [employer] Message Enc [address] [address] [place], [address] [place] [id number] Visit Follow Up Social History Tobacco Use Types Packs/Day Years Used Date Smoking Tobacco: Every Day Cigarettes 1 30 Smokeless Tobacco: Never Alcohol Use Standard Drinks/Week Comments Never 0 (1 standard drink = 0.6 oz pur e alcohol) Comments Unknown Sex and Gender Information Value Date Recorded Sex Assigned at Female 12/29/2024 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
--- OUTSIDE RECORDS SUMMARY | 2025-07-19 13:10 | XMS_ITS | Encounter Summary ---
Author Organization [facility] Address [address] [place] [address] Phone Care Team Providers Care Art Museum Docent Name Role Phone Edu Laguna MD Primary Care Provider [phone] Encounter Details Date Type Department Care Team [...] week 01/23/2024 How often do you attend rastafari or mosque serv ices? Never 01/23/2024 Do you belong to any clubs o r organizations such as rastafari groups, unions, fraternal or athletic groups, or [...] Recorded Patient Health Questionnaire-2 Score 0 01/23/2024 [facility] - Occupational [...] on filedocumented in this encounter Care Teams Art Museum Docent Relationship Specialty Start Date End Date Edu Laguna MD PCP - General Internal Medicine 02/23/23 documented as of this encounter
--- OUTSIDE RECORDS SUMMARY | 2025-07-19 13:10 | XMS_ITS | Clinical Summary ---
Author Organization [place] [id number] [facility] Address [address] [place] [address] Care Team Providers Care Business Development Coordinator Name Role Phone Edu Laguna MD Primary Care Provider [phone] Allergies Active Allergy Reactions Criticality Noted Date [...] Description 06/10/2025 3:30 PM CDT Office Visit [facility] Medicine Rheumatology [address] [place] [phone] Misha Stuart MD Rheumatoid arthritis involving multiple sites with positive rheumatoid factor (HCC) (Primary Dx); High risk medication use; Osteoarthritis, unspecified osteoarthritis type, unspecified site; Tobacco dependence; Vaccine counseling 05/12/2025 9:30 AM CDT Office Visit [facility] [place] [place] Rheumatology [address] [place] [phone] Misha Stuart MD Rheumatoid arthritis involving multiple sites with positive rheumatoid factor (HCC) (Primary Dx); High risk medication use; Tobacco dependence; Vaccine counseling 04/21/2025 10:00 AM CDT Lab [facility] Medicine Infectious Diseases [address] [place] [phone] 04/21/2025 9:52 AM CDT - 04/21/2025 11:59 PM CDT Hospital Encounter [address] [address] Rheumatoid arthritis involving multiple sites with positive rheumatoid factor (HCC); High risk medication use Discharge Disposition: Discharge to home or self care 04/21/2025 9:30 AM CDT Office Visit [facility] [place] [place] Rheumatology [address] [place] [phone] Sherita Tripp MD Rheumatoid arthritis involving multiple [...] uit: Not Asked; Counseling Given: Not Answered [facility] Utilities Answer Date Recorded In the past 12 months has th e [employer], gas, oil, or water company threatened to [...] week 05/12/2025 How often do you attend taoism or baptist serv ices? Never 05/12/2025 Do you belong to any clubs o r organizations such as taoism groups, unions, fraternal or athletic groups, or [...] Recorded Patient Health Questionnaire-2 Score 0 05/12/2025 [facility] Occupat ional Health - Occupational Stress [...] place to sleep or slept in a half-way (including now)? No 01/23/2024 Housing Stability Vital Sign Answer Eric e Recorded In the last 12 months, was t here a time when you were not able to pay the mortgage or rent on time? No 05/12/2025 In the past 12 months, how m any times have you moved where you were living? 1 05/12/2025 At any time in the past 12 m [facility], were you homeless or living in a half-way (including now)? No 05/12/2025 Comments Unknown Sex [...] BLOOD ORDERABLES F inal Result HELEN SPEAR [address] [place] [address] * Differential, auto (04/21/2025 9:52 AM CDT) Neutrophil abs 3.97 1.50 - 6.50 K/cumm Imm gran abs 0.01 0.00 - 0.10 K/cumm [facility] Lymphocyte abs 1.67 0.80 - 3.30 K/cumm [facility] Monocyte abs 0.36 0.20 - 0.80 K/cumm [facility] Eosinophil abs 0.12 0.00 - 0.50 K/cumm [facility] Basophil abs 0.06 0.00 - 0.10 K/cumm [facility] Neutrophil pct 64.1 % [facility] Comment: Interpretive Data Percent cell count reference ranges are not reported, since discordance with absolute values may lead to misinterpretation of CBC data. Current Interpretive Data was last revised on 2018. Imm gran pct 0.2 % [facility] Comment: Interpretive Data Percent cell count reference ranges are not reported, since discordance with absolute values may lead to misinterpretation of CBC data. Current Interpretive Data was last revised on 2018. Lymphocyte pct 27.0 % [facility] Comment: Interpretive Data Percent cell count reference ranges are not reported, since discordance with absolute values may lead to misinterpretation of CBC data. Current Interpretive Data was last revised on 2018. Monocyte pct 5.8 % [facility] Comment: Interpretive Data Percent cell count reference ranges are not reported, since discordance with absolute values may lead to misinterpretation of CBC data. Current Interpretive Data was last revised on 2018. Eosinophil pct 1.9 % [facility] Comment: Interpretive Data Percent cell count reference ranges are not reported, since discordance with absolute values may lead to misinterpretation of CBC data. Current Interpretive Data was last revised on 2018. Basophil pct 1.0 % [facility] Comment: Interpretive Data Percent cell count reference ranges are not reported, since discordance with absolute values may lead to misinterpretation of CBC data. Current Interpretive Data was last revised on 2018. Blood 04/21/2025 9:52 AM CDT 04/21/2025 2:51 PM CDT us Sherita Tripp MD LAB BLOOD ORDERABLES F inal Result HELEN [address]AR [address] Department [facility] [place] [address] * (ABNORMAL) CBC with auto differential (04/21/2025 9:52 AM CDT) Pathologist [facility] WBC 6.19 3.80 - 9.90 K/cumm Hgb 14.5 11.9 - 15.5 g/dL [facility] Hct 44.2 35.6 - 45.5 % [facility] Plt 243 150 - 400 K/cumm [facility] MPV 10.2 9.1 - 12.3 fL [facility] RBC 4.71 3.90 - 5.20 M/cumm [facility] MCV 93.8 81.3 - 96.4 fL [facility] MCH 30.8 27.1 - 33.3 pg [facility] MCHC 32.8 32.3 - 35.7 g/dL [facility] RDW CV 14.6 11.1 - 14.9 % [facility] RDW SD 50.4(H) 35.7 - 48.1 fL [facility] NRBC abs 0.00 0.00 - 0.01 K/cumm [facility] Blood 04/21/2025 9:52 AM CDT 04/21/2025 2:51 PM CDT Sherita Tripp MD LAB BLOOD ORDERABLES F inal Result Performing Organization Address [facility] Co de Phone Number HELEN SPEAR [address] [facility] [place] [address] * Erythrocyte sedimentation rate (04/21/2025 9:52 AM CDT) [facility] Erythrocyte sedimentation rate 12 1 - 30 mm/hr Blood 04/21/2025 9:52 AM CDT 04/21/2025 2:51 PM CDT Sherita Tripp MD LAB BLOOD ORDERABLES F inal Result Performing Organization Address City/[facility]/ZIP Co de Phone Number HELEN SPEAR [address] [address] of [facility] [place] [address] * CRP (acute phase) (04/21/2025 9:52 AM CDT) CRP <3.0 <=10.0 mg/L Blood 04/21/2025 9:52 AM CDT 04/21/2025 2:51 PM CDT us Sherita Tripp MD LAB BLOOD ORDERABLES F inal Result [facility] [address] [place] [address] * Comprehensive metabolic panel (04/21/2025 9:52 AM [...] CH AST 30 10 - 45 Units/L [facility] Blood 04/21/2025 9:52 AM CDT 04/21/2025 2:51 PM CDT Sherita Tripp MD LAB BLOOD ORDERABLES F inal Result Performing Organization Address [facility] de Phone Number HELEN [address] [address] [facility] [place] [address] * Hepatitis C antibody Blood (06/24/2024 11:43 [...] ERAL ORDERABLES Final Result Performing Organization Address [facility] de Phone Number HELEN [phone] [address] [employer] [place] [address] from Last 3 Months or Most Recently Relevant to Health Maintenance Insurance [employer] [facility] [employer] [facility] Care Teams Business Development Coordinator Relationship Specialty Start Date End Date Edu Laguna MD PCP - General Internal Medicine 02/23/23
--- OUTSIDE RECORDS SUMMARY | 2025-07-19 13:10 | XMS_ITS | Clinical Summary ---
Author Organization [facility] Address [address] [place] [address] Care Team Providers Care Insurance Follow Up Representative Name Role Phone Edu Laguna MD Primary Care Provider [phone] Allergies Active Allergy Reactions Criticality Noted Date [...] CC HHS/HCC) 07/02/2023 08/01/2024 Overview (08/13/2024): Sees Sheet Finisher Sherita Tripp MD at [facility] Rheumatology in [place], [place] Nicotine dependence 07/02/2023 Family History Medical [...] Sex Assigned at Female 12/29/2024 8:24 AM MANAGER ED Legal Sex Female 5:31 PM CDT Gender Identity Not on file Sexual Orientation Not on file Last Filed Vital Signs Vital Sign Reading Time Taken Comments Blood Pressure - - Pulse - - Temperature - - Respiratory Rate - - Oxygen Saturation - - Inhaled Oxygen Concentration - - Weight 72.6 kg (160 lb) 12/29/2024 8:29 AM MANAGER ED Height 165.1 cm (5' 5) 12/29/2024 8:29 AM MANAGER ED Body Mass Index 26.63 12/29/2024 8:29 AM MANAGER ED Plan of Treatment Health Maintenance Due Date [...] wi th HPV 2005 Mammogram Screening 2015 Lung Cancer Screening 2025 Zoster Vaccines (1 of 2) 2025 COVID-19 Vaccine (4 - 2025-2 6 season) 2025 10/05/2021, 02/07/2021, 01/10/2021 DTaP, Tdap and Td [...] this topic Insurance T AET Care Teams Insurance Follow Up Representative Relationship Specialty Start Date End Date Edu Laguna MD [address] [place] [address] PCP - General INTERNAL MEDICINE 11/12/23
--- OUTSIDE RECORDS SUMMARY | 2025-07-19 13:10 | XMS_ITS | Encounter Summary ---
Author Organization [facility] Address [address] [place] [address] Phone Care Team Providers Care Commissioner Of Conciliation Name Role Phone Edu Laguna MD Primary Care Provider [phone] Encounter Details Date Type Department Care Team [...] How often do you attend hindu or quaker serv ices? Never 01/23/2024 Do you belong [...] Recorded Patient Health Questionnaire-2 Score 0 01/23/2024 [facility] - Occupational [...] on filedocumented in this encounter Care Teams Commissioner Of Conciliation Relationship Specialty Start Date End Date Edu Laguna MD PCP - General Internal Medicine 02/23/23 documented as of this encounter
[2025-07-19 13:44] VITALS: BP 156/77; PULSE 72; RESP 18; TEMP 36.6; O2SAT 99
== END 2025-07-19 13:44 | disposition home or self-care (01) ==
PROVIDERS: Emergency Provider Internal Medicine Critical Care Medicine; PCP Internal Medicine
DX: M05.731 Rheumatoid arthritis with rheumatoid factor of right wrist without organ or systems involvement (principal); M25.571 Pain in right ankle and joints of right foot; F17.210 Nicotine dependence, cigarettes, uncomplicated; Z79.899 Other long term (current) drug therapy
CPT/HCPCS: 73610; 99283

== ENCOUNTER 2025-10-07 15:02 | Outpatient (CLI) | payer OTHER, SELFPAY ==
--- OUTSIDE RECORDS SUMMARY | 2025-10-06 15:00 | XMS_ITS | Encounter Summary ---
Author Organization [facility] Address [address] [place] [address] Phone Care Team Providers Care Rn Birthing Name Role Phone Edu Laguna MD Primary Care Provider [phone] Encounter Details Date Type Department Care Team (Late st Contact Info) Description 10/06/2025 3:00 PM E COMMERCE MARKETING ANALYST Office Visit [facility] Medicine Rheumatology [address] [place] [address] [address] [place] [id number] Misha Stuart MD [address] [place] [address] Rheumatoid arthritis involving multiple sites with positive rheumatoid factor (HCC) (Primary Dx); High risk medication use; Tobacco dependence; Vaccine counseling; Fatty liver Social History Tobacco Use Types Packs/Day Years Used Date Smoking Tobacco: Some Days Cigarettes Passive Smoke Exposure: Never Smokeless Tobacco: Never [facility] Utilities Answer Date Recorded In the past 12 months has [employer] electric, gas, oil, or water company threatened to [...] week 05/12/2025 How often do you attend religious or yarsanism serv ices? Never 05/12/2025 Do you belong [...] Recorded Patient Health Questionnaire-2 Score 0 05/12/2025 [facility] - [...] place to sleep or slept in a [place] (including now)? No 01/23/2024 Housing Stability Vital Sign Answer Eric e Recorded In the last 12 months, was t here a time when you were not able to pay the mortgage or rent on time? No 05/12/2025 In the past 12 months, how m any times have you moved where you were living? 1 05/12/2025 At any time in the past 12 m [facility], were you homeless or living in a [place] facility (including now)? No 05/12/2025 Comments Unknown Sex and Gender Information Value Date Recorded Sex Assigned at Not on file Legal Sex Female 3:24 PM CDT Gender Identity Not on file Sexual Orientation Not on file documented as of this encounter Last Filed Vital Signs Vital Sign Reading Time Taken Comments Blood Pressure 166/85 10/06/2025 2:50 PM E COMMERCE MARKETING ANALYST Pulse 66 10/06/2025 2:50 PM E COMMERCE MARKETING ANALYST Temperature - - Respiratory Rate - - Oxygen Saturation 96% 10/06/2025 2:50 PM E COMMERCE MARKETING ANALYST Inhaled Oxygen Concentration - - Weight 78.2 kg (172 lb 6.4 oz) 10/06/2025 2:50 P M E COMMERCE MARKETING ANALYST Height 165.1 cm (5' 5) 10/06/2025 2:50 PM E COMMERCE MARKETING ANALYST Body Mass Index 28.69 10/06/2025 2:50 PM E COMMERCE MARKETING ANALYST documented in this encounter Functional Status * BP Location Answer Date of Assessment Author Right arm 10/06/2025 2:50 PM E COMMERCE MARKETING ANALYST Shara Kimble CMA * BP Location Answer Date of Assessment Author Right arm 10/06/2025 2:50 PM E COMMERCE MARKETING ANALYST Shara Kimble CMA documented as of this encounter Progress Notes * Misha Stuart MD - 10/06/2025 3:00 PM CST [facility] Division of Rheumatology Rheumatological disease: Seropositive, erosive RA Rheumatological medication: Humira biosimilar 40mg sq q2 weeks, MTX 10 mg PO weekly, and daily Folic acid Last clinic visit: Jun 10 SUBJECTIVE: Chief Complaint: routine follow up. HPI: Faiza Serna is a 50 y.o. female with a PMHx of seropositive erosive rheumatoid arthritis, GERD, depression, anxiety presenting to the clinic today for a follow up visit. Interval History: She is more stiff recently. This has been going on for about 2 weeks now. The stiffness lasts a couple of minutes. She also has more soreness in her lower legs. She has some pain in the back of her knees. She also has chronic issues in her right ankle and lower back. These issues are chronic. No warmth or swelling in her joints. Tolerating her medications well. No recent infections. Has chronic cough. Whitish productive sputum production. No color change. No blood in the sputum. No chest pain. Using the medications above and tolerating them well overall. No fever, chills, N/V/D, abdominal pain, chest pain, rash, uveitis/scleritis. Denies any recent infections or hospitalizations. Continues to smoke and is actively trying to quit. Smoking 10 sticks/day due to increased stress. RHEUMATOLOGY BACKGROUND Disease History: Copied from Dr. Driscoll's note 01/23/24 and updated 11/2022- Developed pain in her wrists, MCPs, PIPs associated with swelling and warmth. Progressive involvement of shoulders, knees, ankles Pain improves with movement. Stiffness lasts about 30-60 mins. Started on MTX and HCQ by her PCP. Also takes Indomethacin 50 mg daily. 06[facility]2023[facility]: Labs 01/2023 MIKAL negative CCP 73->79 (<20) 06/2023: RF 138 Imaging: MRI left hand ([facility]) 02/2023 Focal intramedullary cystic change in the scaphoid distally and at the 3rd MCP head. Minimal joint effusion at the 2nd MCP joint Enhancing tenosynovitis involving the flexor tendon sheaths of the 2nd and 4th digits. Tendons themselves appear intact. There is focal enhancing soft tissue edema at the region of the distal portion of the 5th proximal phalanx dorsally, nonspecific. Questionable minimal erosive changes at the scaphoid and trapezoid. No significant enhancing synovitis on post contrast images. Very early erosive arthropathy at the wrist is a potential consideration MRI right hand ([facility]) 02/2023 There is suggestion of scattered mild erosive changes in the carpal bones with extensive enhancing synovitis at the wrist Bone marrow signals in the hand itself are otherwise unremarkable. Flexor and extensor tendon sheaths are intact. Xray left foot 06/2023 Normal alignment without fracture or dislocation. Small calcaneal spur. Mild degenerative changes with some erosive changes suggested in the 2nd and 3rd tarsometatarsal joints. No soft tissue abnormalities. XR hands/wrists 06/2024 1. Right severe radiocarpal joint space narrowing with scattered erosions in the carpal bones most prominent in triquetrum which can be seen in rheumatoid arthritis. 2. Left 1st metacarpophalangeal severe joint space narrowing and ulnar styloid erosion also can be seen in rheumatoid arthritis. Diagnostic right hand US 08/10/24: active inflammatory arthritis Medication History: MTX 11/2022-now HCQ 11/2022-06/2025 Humira 08/2024 now, switched to biosimilar 04/2025. Remicade: denied 08/2024 Immunology: T-spot: Lab Results Component Value Date PPD Negative 06/24/2024 HCV/HBsAg: Lab Results Component Value Date HEPBSAB Nonreactive 06/24/2024 HEPBSAG Nonreactive 06/24/2024 ROS: All other systems negative except as in HPI. HISTORY: PMHx: Past Medical History: Diagnosis Date Fibromyalgia, primary Osteoarthritis Rheumatoid arthritis (HCC) PSHx: History reviewed. No pertinent surgical history. Social Hx: Social History Tobacco Use Smoking status: Some Days Types: Cigarettes Passive exposure: Never Smokeless tobacco: Never Substance and Sexual Activity Drug use: None Sexual activity: None Alcohol Use: Unknown (11/16/2021) Received from [facility] AUDIT-C Q1: How often do you have a drink containing alcohol?: Monthly or less Average Number of Drinks: Not on file Frequency of Binge Drinking: Not on file [place] [facility] [place] [facility] [employer] [facility] FHx: Family History Problem Relation Age of Onset Hypertension Mother Colon cancer Mother Osteoarthritis Mother Pancreatic cancer Father Hypertension Father MEDICATIONS: Current Outpatient Medications Medication Instructions adalimumab-ryvk 40 mg, subcutaneous, Every 14 days aspirin 81 mg, Daily cilostazoL (PLETAL) 50 mg tablet clopidogreL (PLAVIX) [address] (VOLTAREN) 75 mg, 2 times daily escitalopram (LEXAPRO) 10 mg, Daily famotidine (PEPCID) 40 mg, Daily folic acid (FOLVITE) 1 mg, oral, Daily gabapentin (NEURONTIN) 300 mg, 3 times daily losartan (COZAAR) 25 mg tablet TAKE 1 TABLET (25 MG) BY ORAL ROUTE AT BEDTIME methotrexate 10 mg, oral, Every 7 days pregabalin (LYRICA) 150 mg, 2 times daily rosuvastatin (CRESTOR) 5 mg tablet ALLERGIES: Allergies Allergen Reactions Erythromycin Stomach upset Penicillins Stomach upset OBJECTIVE: Vitals: BP 166/85 (BP Location: Right arm, Patient Position: Sitting) Pulse 66 Ht 165.1 cm (5' 5) Wt 78.2 kg (172 lb 6.4 oz) SpO2 96% BMI 28.69 kg/m?? Physical Examination: General: NAD, alert HEENT: No pallor, icterus Resp: No difficulty breathing, no audible wheezes or abnormal sounds on auscultation Ext: No edema. No cyanosis or clubbing Neuro: Gait Normal. Moves all limbs independently Skin: No rash. No ulcers on exposed skin Musculoskeletal: Swelling without tenderness of her bilateral 2nd-3rd MCPs. Otherwise, no active synovitis in the wrists, elbows, shoulders, knees, ankles. Able to make a fist bilaterally with some pain. Mild TTP in the lateral malleolus R Investigations: Reviewed below Lab Results Component Value Date WBC 5.55 09/24/2025 HGB 15.5 09/24/2025 HCT 45.9 (H) 09/24/2025 MCV 92.2 09/24/2025 LABPLAT 249 09/24/2025 NEUTROABS 3.20 09/24/2025 LYMPHSABS 1.77 09/24/2025 EOSABS 0.14 09/24/2025 Lab Results Component Value Date AST 32 09/24/2025 ALT 41 09/24/2025 CREATININE 0.76 09/24/2025 Inflammatory markers: Lab Results Component Value Date SEDRATE 7 09/24/2025 SEDRATE 12 04/21/2025 CRP <3.0 09/24/2025 CRP <3.0 04/21/2025 Vit: Lab Results Component Value Date CALCIUM 9.4 09/24/2025 RA: Lab Results Component Value Date RF 138 (H) 07/02/2023 Imaging: Refer to Rheumatology Background above ASSESSMENT/PLAN: //Seropositive erosive rheumatoid arthritis: stable Diagnosed 11/2022; CCP 79, RF 138 Diagnostic right hand US 08/10/24: active inflammatory arthritis After switching to Humira biosimilar circa 04/2025 due to insurance issues and unavailability of Humira for the month of March, patient was in a flare. Today, she is well controlled. I don't think the soreness is due to RA activity increase. She will let me know if this gets worse. PLAN: -Continue Humira biosimilar 40mg sq q2 weeks. -Continue MTX 10 mg PO weekly and folic acid 1 mg daily. Will monitor LFTs closely. -Continue to stay off of HCQ. //Use of high-risk, immunosuppressive medications Patient aware of possible increased risk of infection, malignancy, ?demyelinating lesions, re-activation of latent TB, with TNFi use. She knows to hold the medications when she has an infection. Patient is also on methotrexate which can cause cytopenias and abnormal liver function requiring frequent lab monitoring. - CBC and CMP every 3-4 months. Reviewed labs from 09/2025 WNL. Will obtain labs in 12/2025, osvaldo Bonilla. - Hepatitis B/C NR 06/2024. - Vaccination: Shingrix two dose completed. //Osteoarthritis: -Left knee s/p intra articular steroids and hyaluronic acid. Left hip CSI 10/2024. Follows with local ortho. //Tobacco use: Re-discussed risks of atherosclerotic cardiovascular disease and RA disease control with tobacco use. She is smoking a pack of cigarettes and actively trying to quit. Encouraged, will fu at next visit in 4 months. Patient will try to cut down to 5 at next visit with me. //Bone health: DEXA: Will get with PCP due to history of early menopause. -Encouraged calcium rich diet intake -Weight bearing exercises as able. //Health Maintenance Immunization History Administered Date(s) Administered Influenza, Quadrivalent, High Dose, Preservative Free, Intrr 10/01/2023 Influenza, Trivalent, High Dose, Split, Preservative Free, Intramuscular 10/21/2024 Bebo SARS-CoV-2 Monovalent Vaccination (12+ Yrs) PURPLE 01/10/2021, 02/07/2021, 10/05/2021 Pneumococcal Conjugate Pcv20 10/01/2023 Followup: 3-4 months. Misha Stuart MD Division of Rheumatology This note was generated in-part with voice recognition software. All attempts were made to correct any spectrographer and/or typographical errors that can occur, but some errors may still exist. E COMMERCE MARKETING ANALYST documented in this encounter Plan of Treatment Scheduled Orders Name Type Priority Associated Diagnoses Orde r Schedule CBC with auto differential Lab Routine High risk medication use Expected: 12/30/2025 (Approximate), Expires: 03/30/2026 Comprehensive metabolic panel Lab Routine High risk medication use Expected: 12/30/2025 (Approximate), Expires: 03/30/2026 documented as of this encounter Visit Diagnoses Diagnosis Rheumatoid arthritis involving multiple sites with positive rheumatoid factor (HCC)- Primary High risk medication use Tobacco dependence Tobacco use disorder Vaccine counseling Fatty liver Other chronic nonalcoholic liver disease documented in this encounter Care Teams Rn Birthing Relationship Specialty Start Date End Date Edu Laguna MD PCP - General Internal Medicine 02/23/23 documented as of this encounter
--- NOTE | ~2025-10-07 | XR_ITS ---
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 Findings: No acute fracture or malalignment. No significant degenerative changes. Soft tissues unremarkable. Impression: No acute fracture or malalignment. Reviewed, dictated and finalized at location P. Y CHILDHOOD TEACHER Impression: No acute fracture or malalignment.
--- NOTE | ~2025-10-07 | XR_ITS ---
EXAMINATION: XR ankle RT min 3V, 10/07/2025 15:20 DIRECTOR PATIENT HISTORY: R ANKLE PAIN COMPARISON: No comparisons available. Findings: No acute fracture or malalignment. No significant degenerative changes. Soft tissues unremarkable. Impression: No acute fracture or malalignment. Reviewed, dictated and finalized at location P. CTOR PATIENT Impression: No acute fracture or malalignment.
[2025-10-07 15:57] LABS: Alanine Aminotransferase 33 U/L (6-35); Albumin Level 4.7 g/dL (3.5-5.1); Alkaline Phosphatase 88 U/L (38-126); Anion Gap 10 mmol/L (4-12); Aspartate Amino Transferase 30 U/L (14-36); Bilirubin,Total 0.5 mg/dL (0.2-1.3); Blood Urea Nitrogen 20 mg/dL (7-17); CRP < 0.5 mg/dL (<1.0); Calcium 9.7 mg/dL (8.4-10.2); Carbon Dioxide 30 mmol/L (22-30); Chloride 103 mmol/L (98-107); Cholesterol 158 mg/dL (0-200); Estimated Glomerular Filt Rate > 60; Glucose 111 mg/dL (65-110); HDL Direct 64 mg/dL; Osmolality Calculated 299 mOsm/kg (285-295); Potassium 4.1 mmol/L (3.4-5.0); Sodium 143 mmol/L (137-145); Total Protein 7.2 g/dL (6.3-8.2); Triglycerides 132 mg/dL (<150)
[2025-10-07 16:25] LABS: Thyroid Stimulating Hormone 1.440 uIU/mL (0.465-4.680)
--- OUTSIDE RECORDS SUMMARY | 2025-10-07 16:27 | XMS_ITS | Clinical Summary ---
Author Organization [place] [id number] [facility] Address [address] [place] [address] Care Team Providers Care Assistant Professor Of Art Name Role Phone Edu Laguna MD Primary Care Provider [phone] Allergies Active Allergy Reactions Criticality Noted Date [...] Encounters Date Type Department Care Team Description 10/06/2025 3:00 PM CLINICAL PHARMACIST Office Visit [facility] Medicine Rheumatology [address] [facility] [address] [place] [address] Misha Stuart MD Rheumatoid arthritis involving multiple sites with positive rheumatoid factor (HCC) (Primary Dx); High risk medication use; Tobacco dependence; Vaccine counseling; Fatty liver 09/25/2025 Results Follow-Up [facility] Medicine Rheumatology [address] [facility] [address] [place] [address] [place] [phone] Misha Stuart MD CBC with auto differential, Comprehensive metabolic panel, CRP (acute phase), Additional followed-up results: 3 09/24/2025 10:55 AM CLINICAL PHARMACIST Lab [address] [address] High risk medication use; Rheumatoid arthritis involving multiple sites with positive rheumatoid factor (HCC) from Last 3 Months Immunizations Immunization Administration [...] uit: Not Asked; Counseling Given: Not Answered [facility] Utilities Answer Date Recorded In the past 12 months has th e electric, gas, oil, or water company threatened [...] week 05/12/2025 How often do you attend lutheran or hindu serv ices? Never 05/12/2025 Do you belong to any clubs o r organizations such as lutheran groups, unions, fraternal or athletic groups, or [...] Recorded Patient Health Questionnaire-2 Score 0 05/12/2025 [facility] Occupat ional Health - Occupational Stress [...] any time in the past 12 m [facility], were you homeless or living in a fdc (including now)? No 05/12/2025 Comments Unknown Sex and Gender Information Value Date Recorded Sex Assigned at Not on file Legal Sex Female 3:24 PM CDT Gender Identity Not on file Sexual Orientation Not on file Last Filed Vital Signs Vital Sign Reading Time Taken Comments Blood Pressure 166/85 10/06/2025 2:50 PM CLINICAL PHARMACIST Pulse 66 10/06/2025 2:50 PM CLINICAL PHARMACIST Temperature 36.6 C (97.8 F) 06/10/2025 3:13 PM CDT Respiratory Rate - - Oxygen Saturation 96% 10/06/2025 2:50 PM CLINICAL PHARMACIST Inhaled Oxygen Concentration - - Weight 78.2 kg (172 lb 6.4 oz) 10/06/2025 2:50 P M CLINICAL PHARMACIST Height 165.1 cm (5' 5) 10/06/2025 2:50 PM CLINICAL PHARMACIST Body Mass Index 28.69 10/06/2025 2:50 PM CLINICAL PHARMACIST Plan of Treatment Health Maintenance Due Date Last Done Comments Breast Cancer Screening-Mammogram 1975 Cervical Cancer Screening 1975 Colon Cancer Screening-Colonoscopy 1975 Regular Well Visit/Exam 18-64 1993 Covid-19 Vaccine (4 - 2024-2 6 season) 2025 10/05/2021, 02/07/2021, 01/10/2021 Influenza Vaccine (#1) 2025 10/21/2024, 2022 Depression Screening 05/12/2026 05/12/2025, 04/21/2025, 01/20/2025, Additional history exists DTaP/Tdap/Td Vaccine (2 - Td or Tdap) 09/07/2031 09/07/2021 Hepatitis B Screening Completed 06/24/2024 Hepatitis C Screening Completed 06/24/2024, 023 Pneumococcal vaccine <65 Completed 07/18/2025, 09/06 Zoster Vaccine Completed 08/24/2025, 06/13/2025 Procedures Procedure Name Priority Date/Time Associated Diagnosis Comments EGFR Routine 09/24/2025 10:58 AM CLINICAL PHARMACIST High risk medication use DIFFERENTIAL AUTO Routine 09/24/2025 10: 58 AM CLINICAL PHARMACIST High risk medication use ERYTHROCYTE SEDIMENTATION RATE Routine 09/24/2025 10:58 AM CLINICAL PHARMACIST Rheumatoid arthritis involving multiple sites with positive rheumatoid factor (HCC) CRP (ACUTE PHASE) Routine 09/24/2025 10: 58 AM CLINICAL PHARMACIST Rheumatoid arthritis involving multiple sites with positive rheumatoid factor (HCC) COMPREHENSIVE METABOLIC PANEL Routine 09/24/2025 10:58 AM CLINICAL PHARMACIST High risk medication use CBC WITH AUTO DIFFERENTIAL Routine 09/24/2025 10:58 AM CLINICAL PHARMACIST High risk medication use HEPATITIS C ANTIBODY Routine 06/24/2024 11:43 AM CDT Rheumatoid arthritis involving multiple sites with positive rheumatoid factor (HCC) High risk medication use from Last 3 Months or Most Recently Relevant to Health Maintenance Results * eGFR (09/24/2025 10:58 AM CLINICAL PHARMACIST) [facility] eGFR >90 >=60 mL/min/1. 73 m2 Comment: [...] interpretive data was last reviewed 2021. Blood 09/24/2025 10:5 8 AM CLINICAL PHARMACIST 09/24/2025 11:45 AM CLINICAL PHARMACIST us Misha Stuart MD LAB BLOOD ORDERABLES Laly ambrocio Result [facility] ([place]) [facility] Department [place] [address] * Differential, auto (09/24/2025 10:58 AM CLINICAL PHARMACIST) Neutrophil abs 3.20 1.50 - 6.50 K/cumm Imm gran abs 0.01 0.00 - 0.10 K/cumm [facility] ([place]) Lymphocyte abs 1.77 0.80 - 3.30 K/cumm [facility] ([place]) Monocyte abs 0.39 0.20 - 0.80 K/cumm [facility] ([place]) Eosinophil abs 0.14 0.00 - 0.50 K/cumm [facility] ([place]) Basophil abs 0.04 0.00 - 0.10 K/cumm [facility] ([place]) Neutrophil pct 57.7 % [facility] ([place]) Comment: Interpretive Data Percent cell count reference ranges are not reported, since discordance with absolute values may lead to misinterpretation of CBC data. Current Interpretive Data was last revised on 2018. Imm gran pct 0.2 % [facility] ([place]) Comment: Interpretive Data Percent cell count reference ranges are not reported, since discordance with absolute values may lead to misinterpretation of CBC data. Current Interpretive Data was last revised on 2018. Lymphocyte pct 31.9 % [facility] ([place]) Comment: Interpretive Data Percent cell count reference ranges are not reported, since discordance with absolute values may lead to misinterpretation of CBC data. Current Interpretive Data was last revised on 2018. Monocyte pct 7.0 % [facility] ([place]) Comment: Interpretive Data Percent cell count reference ranges are not reported, since discordance with absolute values may lead to misinterpretation of CBC data. Current Interpretive Data was last revised on 2018. Eosinophil pct 2.5 % [facility] ([place]) Comment: Interpretive Data Percent cell count reference ranges are not reported, since discordance with absolute values may lead to misinterpretation of CBC data. Current Interpretive Data was last revised on 2018. Basophil pct 0.7 % [facility] ([place]) Comment: Interpretive Data Percent cell count reference ranges are not reported, since discordance with absolute values may lead to misinterpretation of CBC data. Current Interpretive Data was last revised on 2018. Blood 09/24/2025 10:5 8 AM CLINICAL PHARMACIST 09/24/2025 11:45 AM CLINICAL PHARMACIST Misha Stuart MD LAB BLOOD ORDERABLES Laly l Result [facility] ([place]) 1 [facility] Department of Laboratories [place], [place] [id number] * (ABNORMAL) CBC with auto differential (09/24/2025 10:58 AM CLINICAL PHARMACIST) WBC 5.55 3.80 - 9.90 K/cumm Hgb 15.5 11.9 - 15.5 g/dL [facility] ([place]) Hct 45.9(H) 35.6 - 45.5 % [facility] ([place]) Plt 249 150 - 400 K/cumm [facility] ([place]) MPV 10.7 9.1 - 12.3 fL [facility] ([place]) RBC 4.98 3.90 - 5.20 M/cumm [facility] ([place]) MCV 92.2 81.3 - 96.4 fL [facility] ([place]) MCH 31.1 27.1 - 33.3 pg [facility] ([place]) MCHC 33.8 32.3 - 35.7 g/dL [facility] ([place]) RDW CV 14.3 11.1 - 14.9 % [facility] ([place]) RDW SD 48.5(H) 35.7 - 48.1 fL [facility] ([place]) NRBC abs 0.00 0.00 - 0.01 K/cumm [facility] ([place]) Blood 09/24/2025 10:5 8 AM CLINICAL PHARMACIST 09/24/2025 11:45 AM CLINICAL PHARMACIST Misha Stuart MD LAB BLOOD ORDERABLES Laly l Result [facility] ([place]) 1 [facility] [place] [address] * Erythrocyte sedimentation rate (09/24/2025 10:58 AM CLINICAL PHARMACIST) Erythrocyte sedimentation rate 7 1 - 30 mm/hr Blood 09/24/2025 10:5 8 AM CLINICAL PHARMACIST 09/24/2025 11:45 AM CLINICAL PHARMACIST Misha Stuart MD LAB BLOOD ORDERABLES Laly l Result [facility] ([place]) 1 [facility] [place] [address] * CRP (acute phase) (09/24/2025 10:58 AM CLINICAL PHARMACIST) CRP <3.0 <=10.0 mg/L Blood 09/24/2025 10:5 8 AM CLINICAL PHARMACIST 09/24/2025 11:45 AM CLINICAL PHARMACIST us Misha Stuart MD LAB BLOOD ORDERABLES Laly ambrocio Result [facility] ([place]) 1 [facility] Department [place] [address] * Comprehensive metabolic panel (09/24/2025 10:58 AM CLINICAL PHARMACIST) Sodium 139 135 - 145 mmol/L Potassium, pl 4.1 3.3 - 4.9 mmol/L [facility] ([place]) Chloride 103 97 - 110 mmol/L [facility]) CO2 26 22 - 32 mmol/L [facility] ([place]) Anion gap 10 2 - 15 mmol/L [facility] ([place]) BUN 14 6 - 25 mg/dL [facility] ([place]) Creatinine 0.76 0.60 - 1.10 mg/dL [facility] ([place]) Glucose 93 70 - 199 mg/dL [facility] ([place]) [...] Calcium 9.4 8.5 - 10.3 mg/dL [facility] ([place]) Bilirubin, total 0.4 0.1 - 1.2 mg/dL [facility] ([place]) Protein, pl 7.1 6.5 - 8.5 g/dL [facility] ([place]) Albumin 4.5 3.5 - 5.0 g/dL [facility] ([place]) Alk phos 90 40 - 130 Units/L [facility] ([place]) ALT 41 7 - 45 Units/L [facility]) AST 32 10 - 45 Units/L [facility] ([place]) Blood 09/24/2025 10:5 8 AM CLINICAL PHARMACIST 09/24/2025 11:45 AM CLINICAL PHARMACIST Misha Stuart MD LAB BLOOD ORDERABLES Laly l Result Performing Organization Address City/[facility]/ZIP Co de Phone Number [facility] ([place]) 1 [facility] Department [place] [address] * Hepatitis C antibody Blood (06/24/2024 11:43 [...] ERAL ORDERABLES Final Result Performing Organization Address City/[facility]/ZIP Co de Phone Number [facility] [phone] [address] Department [place] [address] from Last 3 Months or Most Recently Relevant to Health Maintenance Insurance [facility] [facility] [employer] [facility] Care Teams Assistant Professor Of Art Relationship Specialty Start Date End Date Edu Laguna MD PCP - General Internal Medicine 02/23/23
--- OUTSIDE RECORDS SUMMARY | 2025-10-07 16:27 | XMS_ITS | Encounter Summary ---
Author Organization [facility] Address [address] [facility] [place] [address] Phone Care Team Providers Care Operational Risk Analyst Name Role Phone Edu Laguna MD Primary Care Provider [phone] Encounter Details Date Type Department Care Team [...] week 01/23/2024 How often do you attend mu-ism or scientology serv ices? Never 01/23/2024 Do you belong to any clubs o r organizations such as mu-ism groups, unions, fraternal or athletic groups, or [...] Recorded Patient Health Questionnaire-2 Score 0 01/23/2024 [facility] - [...] place to sleep or slept in a senior living (including now)? No 01/23/2024 Comments Unknown Sex [...] on filedocumented in this encounter Care Teams Operational Risk Analyst Relationship Specialty Start Date End Date Edu Laguna MD PCP - General Internal Medicine 02/23/23 documented as of this encounter
--- OUTSIDE RECORDS SUMMARY | 2025-10-07 16:27 | XMS_ITS | Encounter Summary ---
Author Organization [facility] Address [address] [place] [address] Phone Care Team Providers Care On Site Nurse Name Role Phone Edu Laguna MD Primary Care Provider [phone] Encounter Details Date Type Department Care Team [...] week 01/23/2024 How often do you attend yarsanism or synagogue serv ices? Never 01/23/2024 Do you belong [...] 01/23/2024 [facility] - Occupational [...] on filedocumented in this encounter Care Teams On Site Nurse Relationship Specialty Start Date End Date Edu Laguna MD PCP - General Internal Medicine 02/23/23 documented as of this encounter
--- OUTSIDE RECORDS SUMMARY | 2025-10-07 16:27 | XMS_ITS | Encounter Summary ---
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 Leather Calender Operator Name Role Phone Edu Laguna MD Primary Care Provider [phone] Encounter Details Date Type Department Care Team (Latest Contact Info) Description 09/25/2025 Results Follow-Up [facility] Medicine Rheumatology [address] [facility] Medicine [address] [place] [address] [place] [address] Misha Stuart MD [address] [place], [place] [id number] CBC with auto differential, Comprehensive metabolic panel, CRP (acute phase), Additional followed-up results: 3 Social History Tobacco Use Types Packs/Day Years Used Date Smoking Tobacco: Some Days Cigarettes Passive Smoke Exposure: Never Smokeless Tobacco: Never [facility] Utilities Answer Date Recorded In the past 12 months has [employer] electric, gas, oil, or water company threatened [...] week 05/12/2025 How often do you attend roman catholic or lutheran serv ices? Never 05/12/2025 Do you belong to any clubs o r organizations such as roman catholic groups, unions, fraternal or athletic groups, [...] Recorded Patient Health Questionnaire-2 Score 0 05/12/2025 [facility] - Occupational Stress [...] place to sleep or slept in a group home (including now)? No 01/23/2024 Housing Stability Vital Sign Answer Eric e Recorded In the last 12 months, was t here a time when you were not able to pay the mortgage or rent on time? No 05/12/2025 In the past 12 months, how m any times have you moved where you were living? 1 05/12/2025 [facility] were you homeless or living in a group home (including now)? No 05/12/2025 Comments Unknown Sex and Gender Information Value Date Recorded Sex Assigned at Not on file Legal Sex Female 3:24 PM CDT Gender Identity Not on file Sexual Orientation Not on file documented as of this encounter Plan of Treatment Not on file documented as of this encounter Visit Diagnoses Not on filedocumented in this encounter Care Teams Artificial Leather Calender Operator Relationship Specialty Start Date End Date Edu Laguna MD PCP - General Internal Medicine 02/23/23 documented as of this encounter
== END 2025-10-07 15:03 | disposition home or self-care (01) ==
LOC: CHSLAB 15:04
PROVIDERS: PCP Internal Medicine; Visit Provider Internal Medicine
DX: M25.571 Pain in right ankle and joints of right foot (principal); E78.5 Hyperlipidemia, unspecified; M06.9 Rheumatoid arthritis, unspecified
CPT/HCPCS: 36415; 73610; 73630; 80053; 80061; 84443; 86140